=== PATIENT | male | born 1955 | race Caucasian/White ===

== ENCOUNTER → 2016-05-01 | Outpatient (REF) | payer OTHER ==
[~2016-05-01] MED LIST: /AUGM875TA; /DILT60TAB PO; /MOXI40TA; /MOXI40TA PO; /PANT40TA PO; /WARF5TA; /WARF5TA PO; ACET50TAOT PO; ACET65TA; ALBU0.084 IN; ALBU17IN INH; ALBU83IN INH; ASMANEX INHALER; ATEN100T PO; ATEN25TA; CEPH500T; CETI5CHW; COLC0.6T34 PO; COMBVENT; COUM10TA; COUM1TAB17 PO; COUM7.5T PO; DILT120T PO; DUONSOL; ENAL10TA2; ENAL20TA; ENAL20TA PO; FLON0.05; FORADIL; FORMETEROL; FURO1TAB15 PO; FURO40TA2 PO; GLUC1000; GLUCTAB PO; LASI40TA; LASI40TA PO; MAGN400T5 PO; MAGO400T PO; METF1000 PO; METF500T4; MUCI600T34 PO; MUCOMYST; MULTTAB4 PO; OXYC15TA76 PO; OXYGEN; PRAV10TA PO; PRAV40TA2 PO; PRED10TA2; PRED10TA2 PO; PROV90AE; SILV40CR TOP; SILVADENE CREAM; SITA50TAB PO; SYMB80AE; SYMB80AE IN; TENO100T; THIA100T; VITA100037 PO; VITA100072 PO; ZITH500T
== END ==
LOC: M LAB REF 09:17
PROVIDERS: ATTEND Nurse Practitioner Adult Health
DX: Z51.81 Encounter for therapeutic drug level monitoring (principal); Z79.01 Long term (current) use of anticoagulants

== ENCOUNTER → 2016-05-16 | Outpatient (REF) | payer OTHER | LOC: M LAB REF 16:37 | PROVIDERS: ATTEND Internal Medicine Medical Oncology | DX: C25.9 Malignant neoplasm of pancreas, unspecified (principal) ==

== ENCOUNTER 2016-06-24 17:39 | Inpatient (IN) | payer OTHER ==
[~2016-06-24] VITALS: Ht 188 cm; Wt 109.9 kg
[2016-06-24] MEDS ORDERED: IPRATROPIUM 0.5MG/ALBUTEROL 2.5MG INH SOL UD 3ML (DUONEB)(J7620) As Ordered ONE (18:03)
[2016-06-24 18:15] LABS: BASO % 0.6 % (0.0-1.0); EOS # 0.1 K/mm3 (0.0-0.50); EOS % 2.1 % (0.0-3.0); LARGE UNSTAINED CELL # 0.3 K/mm3 (0.0-0.4); LARGE UNSTAINED CELL % 5.8 % (0.0-4.0); LYMPH % 20.2 % (24.0-44.0); MEAN CORPUSCULAR HEMOGLOBIN 27.3 pg (27.0-33.0); MEAN CORPUSCULAR HGB CONC 31.3 g/dl (32.0-36.5); MEAN CORPUSCULAR VOLUME 87.3 fl (80.0-96.0); MONO # 0.6 K/mm3 (0.0-0.8); MONO % 11.3 % (0.0-5.0); NEUTROPHILS % 60.1 % (36.0-66.0); PLATELET COUNT, AUTOMATED 354 k/mm3 (150-450); RED CELL DISTRIBUTION WIDTH 17.7 % (11.5-14.5); WHITE BLOOD COUNT 4.9 K/mm3 (4.0-10.0)
[2016-06-24 18:31] LABS: ANION GAP 9 MEQ/L (8-16); BLOOD UREA NITROGEN 6 MG/DL (7-18); CARBON DIOXIDE LEVEL 34 MEQ/L (21-32); CHLORIDE LEVEL 94 MEQ/L (98-107); CREATININE FOR GFR 0.72 MG/DL (0.70-1.30); GLOMERULAR FILTRATION RATE > 60.0 (>49); GLUCOSE, FASTING 123 MG/DL (80-110); INR 2.26; POTASSIUM SERUM 3.4 MEQ/L (3.5-5.1); SODIUM LEVEL 137 MEQ/L (136-145)
--- NOTE | 2016-06-24 18:54 | REP ---
Clinical: Shortness of breath. Technique: PA and lateral. Comparison: 02/16/2016. Findings: Right-sided opacity in the right lower lobe appears slightly more dense than prior examination. Bilateral pleuroparenchymal changes (right greater than left) primarily involving the bilateral lung bases and inferior pleural surfaces appears similar to prior examination. Cardiac silhouette is stable. [id number] with tip in the SVC again noted. No pneumothorax. Skeletal structures grossly intact. Impression: 1. Right lower lobe opacity appears slightly more pronounced and dense than prior examination and may reflect increasing process. 2. Bilateral pleuroparenchymal changes are similar to prior examination. Signed by Eduardo Mariano MD 06/24/2016 06:45 P
[2016-06-24] MEDS ORDERED: LORazepam 2 MG/ML VIAL (J2060) As Ordered ONE (19:39)
[2016-06-24] MEDS ORDERED: LEVALBUTEROL 1.25 MG/0.5 ML CONCENTRATE NEB As Ordered ONE (19:52)
[2016-06-24] MEDS: IPRATROPIUM 0.02% SOLN 0.5MG/2.5 ML NEB NEB SCH (20:00)
[2016-06-24] MEDS ORDERED: POTASSIUM CHLORIDE 10 MEQ SR TABLET PO ONE (20:00)
[2016-06-24] MEDS ORDERED: LEVALBUTEROL 1.25 MG/0.5 ML CONCENTRATE NEB NEB PRN (20:00)
[2016-06-24] MEDS: LEVALBUTEROL 1.25 MG/0.5 ML CONCENTRATE NEB NEB SCH (20:00)
[2016-06-24] MEDS ORDERED: PRAV20TA2 PO (20:31)
[2016-06-24] MEDS ORDERED: VITMTA PO (20:33)
[2016-06-24] MEDS ORDERED: SYMB16INH INH (20:33)
[2016-06-24] MEDS ORDERED: VITA100066 PO (20:33)
[2016-06-24] MEDS ORDERED: VITA10002 PO (20:33)
[2016-06-24] MEDS ORDERED: SPIR1CAP INH (20:33)
[2016-06-24] MEDS ORDERED: IPRASOL4 INH (20:33)
[2016-06-24] MEDS ORDERED: COUM7.5T PO (20:34)
[2016-06-24] MEDS ORDERED: COUM1TAB17 PO (20:34)
[2016-06-24] MEDS ORDERED: ADVAIR DISKUS 500/50 INH PWD INH SCH (21:00)
[2016-06-24] MEDS ORDERED: ISOVUE-370 76% 100ML VIAL (Q9967) As Ordered ONE (21:11)
[2016-06-24] MEDS ORDERED: GLUCOSE 4 GM CHEW TABLET PO PRN (21:15)
[2016-06-24] MEDS ORDERED: DEXTROSE 50% 50 ML SYRINGE IV PRN (21:15)
[2016-06-24] MEDS ORDERED: GLUCAGON FOR INJ 1 MG VIAL (J1610) SC PRN (21:15)
--- NOTE | 2016-06-24 21:40 | REPUSA ---
CT angiogram of the chest Clinical statement: Chest pain and shortness of breath. Technique: Multiple axial CT images were obtained from the thoracic inlet through the upper abdomen a fter a bolus administration of nonionic intravenous contrast. Coronal and sagittal reconstructions we re also obtained. Comparison: 11/11/2015. Findings: The pulmonary arteries are well-opacified with contrast, with no intraluminal filling defec ts to suggest embolism. The thoracic aorta is unremarkable. Thyroid gland is within normal limits. Th ere is no thoracic lymphadenopathy. There are small bilateral pleural effusions. There is patchy infi ltrates throughout the right lower lung. Small areas of infiltrate are seen in the left lower lobe. S evere emphysematous changes are seen in the right lower lobe, with mild emphysematous changes seen th roughout the remainder of the lungs. Limited imaging of the upper abdomen is unremarkable. There are two ill-defined low attenuation lesions in the posterior right lobe of the liver, the largest measuri ng 2.6 x 2.2 cm. There are no suspicious osseous lesions. Impression: 1. No evidence of pulmonary embolism. 2. Small bilateral pleural effusions with lower lobe infiltrates, greater on the right than the left. These have increased in severity since the prior study. 3. Scattered emphysematous changes, most severe in the right lower lobe. 4. Ill-defined low attenuation lesions in the posterior right lobe of the liver. If there is further clinical concern, ultrasound could be performed.
[2016-06-24] MEDS ORDERED: SODIUM CHLORIDE NASAL 0.65% SPRAY BTL (OCEAN) PRN (22:00)
--- NOTE | 2016-06-24 22:13 | HPE ---
DATE OF ADMISSION: 06/24/2016 PRIMARY CARE PROVIDER: Dr. Ross Galvez INPATIENT HOSPITALIST ATTENDING: Dr. Chandu Posada MEDICAL ONCOLOGIST: Dr. Carmen Jimenez CHIEF COMPLAINT: Shortness of breath. HISTORY OF PRESENT ILLNESS: 60-year-old male with a history of adenocarcinoma of the pancreatic head, status post Whipple procedure 12/12 and six cycles of chemotherapy, follows with Dr. Carmen Jimenez with recent PET scan showing hypermetabolic in the posterolateral inferior sulcus of the left lung on previous PET scan on 11/29/2015, atrial fibrillation on chronic coumadin, chronic obstructive pulmonary disease (COPD), hypertension, ETOH liver cirrhosis, dyslipidemia, obstructive sleep apnea on continuous positive airway pressure (CPAP) at night, presents to the emergency room with a 3-day history of worsening shortness of breath. He complains of a chest cold, sinus congestion with headache, for which he had taken some Aleve, one day of fever, which was subjective and not documented with worsening shortness of breath and wheezing at home despite nebulizer treatments. He was seen at the [facility] for routine followup and review of his blood work. At that time, his primary care provider prescribed Levaquin 750 mg daily, currently had taken 4 days for a 5 day course. Despite antibiotic treatment, no steroids were given and the patient presents to the emergency room today with difficulty ambulating due to severe shortness of breath and persistent wheezing. He otherwise denies any repeat episodes of subjective fevers or chills. His cough is dry and nonproductive, unchanged from prior. He denies any nausea, vomiting, diarrhea, abdominal pain. He has a chronic umbilical hernia, which is reducible. Denies any hematemesis, bright red blood per rectum, generalized weakness, decrease in appetite, weight gain, or weight loss. Denies any chest pain, pressure or tightness. Hospitalist service was called for admission for COPD exacerbation with repeat chest x-ray showing persistent right lower lobe opacity, more pronounced and dense than prior examination, which may reflect increasing process. PAST MEDICAL HISTORY: 1. Atrial fibrillation on chronic Coumadin. 2. COPD. 3. Diabetes on chronic metformin. 4. Hypercholesterolemia. 5. Hypertension. 6. Adenocarcinoma of the head of the pancreas, status post Whipple procedure. 7. Alcoholic liver cirrhosis. 8. Obstructive sleep apnea on CPAP at night. 9. Dyslipidemia. PAST SURGICAL HISTORY: 1. Whipple procedure. 2. Tonsillectomy. ALLERGIES: No known drug allergies. HOME MEDICATIONS: He is currently on the 4th day of Levaquin 750 mg daily for a 5-day course given by the [facility]. - albuterol sulfate two puffs as needed - Cardizem 120 mg twice a day - Coumadin 7.5 mg daily - Enalapril 20 mg daily - Lasix 80 mg daily - mag oxide 400 mg twice a day - metformin 1 gram twice a day - pravastatin 20 mg daily SOCIAL HISTORY: The patient quit smoking 10 years ago. Previously smoked three packs a day for over 20 years. Usually drinks six cans of beer on a daily basis , currently about two beers per week. No history of delirium tremens or withdrawal. FAMILY HISTORY: Father with jaw cancer. REVIEW OF SYSTEMS: 12-point system obtained, all of which are negative except for those mentioned in history of present illness. PHYSICAL EXAMINATION: VITAL SIGNS: Blood pressure 157/74, pulse 102 and irregular, respiratory rate 28, temperature 98.7, 94% on 2 liters nasal cannula. Weighs 113.4 and 6 feet 2 inches tall. GENERAL: The patient is awake, alert, oriented times three. Answering questions appropriately. He has multiple missing teeth in the upper and lower jaw. He has no respiratory distress. No use of respiratory accessory muscles. Able to speak in full sentences. No cyanosis, icterus or jaundice. No jugular venous distention (JVD). LUNGS: Diminished with prolonged expiration, bilateral expiratory wheezing. HEART: S1, S2. Irregularly irregular. ABDOMEN: Soft, nontender, nondistended. The patient had previous surgical scars from prior Whipple procedure and has a reducible umbilical hernia. No rebound or guarding. No hepatosplenomegaly. EXTREMITIES: No cyanosis, clubbing or pitting edema. EKG showed atrial fibrillation with ventricular rate of 99, low QRS in extremity leads. LABORATORY DATA: White count 4.9, hemoglobin 11, hematocrit 37, platelet count of 354, MCV 87, MCH 27. Sodium 137, potassium 3.4, chloride 94, bicarbonate 34, BUN 6, creatinine 0.72, glucose of 123, BNP 40.7, CA 19-9 of 132.7 from peak of 2052 in November 2015. IMAGING STUDIES: Repeat chest x-ray on 06/24/2016 shows right lower lobe opacity, more pronounced and dense than on prior examination, may reflect an increasing process. Bilateral pleural parenchymal changes are similar to prior examination. ASSESSMENT AND PLAN: This is a 60-year-old male with recent diagnosis in November 2015 of adenocarcinoma of the head of the pancreas, status post Whipple procedure, had six cycles of chemotherapy, per the patient, followed by Dr. Carmen Jimenez as an outpatient, alcoholic liver cirrhosis, atrial fibrillation on chronic Coumadin, hypertension, hyperlipidemia, type 2 diabetes, chronic obstructive pulmonary disease (COPD), obstructive sleep apnea on home CPAP at night, presents to the emergency room with 3-day history of worsening shortness of breath and wheezing, seen by primary care physician and was given Levaquin without steroids. Now presents with worsening dyspnea on exertion with significant wheezing. The patient will be admitted as an inpatient for two midnights for COPD exacerbation and further evaluation of increasing right lower lobe opacity in light of prior history of adenocarcinoma of the head of the pancreas. He will be assigned to Dr. Chandu Posada at 7:00 a.m., hospitalist service, on 06/25/2016 for the following issues: 1. Acute COPD exacerbation. The patient has a known history of smoking and diagnosed COPD. He will be given supplemental oxygen to keep saturations 88 to 92%. COPD diet. IV Solu-Medrol every 8 hours. Nebulizer treatments every 4 hours and every 1 hour with Xopenex, due to a history of atrial fibrillation, albuterol might cause increase in tachycardia. Antibiotics with ceftriaxone and azithromycin. Sputum culture if possible. The patient says that he has a dry cough. Check a respiratory panel. Early ambulation. Physical therapy (PT) evaluation and treatment. 2. Adenocarcinoma of the head of the pancreas, status post Whipple procedure with hypermetabolic uptake in the left lung on previous PET scan, currently with a right lower lobe opacity, which is increasing in size from prior examination. We will obtain a CT of the chest and discuss this case with Dr. Carmen Jimenez, the patient's medical oncologist. He has completed six cycles of chemotherapy, per the patient. The patient's CA 19-9 seems to have significantly improved from prior to his surgery. 3. Atrial fibrillation. The patient appears to be stable. He will be continued on his home dose of Cardizem 200 mg twice a day, as well as CVA prophylaxis with his home dose of Coumadin. Check INR daily. 4. Type 2 diabetes. In light of plans for CT of the chest with contrast, we will hold the patient's metformin. Consistent carbohydrate diet. Check A1/c. Check fingersticks before food and nightly with sliding scale coverage. May provide glipizide for now and monitor for renal failure in light of planned contrast study and continued use of Lasix and enalapril. 5. Hypertension, stable. Continue on enalapril and Lasix. Monitor for any signs of worsening. Strict input and output. 6. Hyperlipidemia. Continue pravastatin. Check fasting lipid profile. 7. History of alcoholic liver cirrhosis, stable. Avoid hepatotoxins and dose antibiotics and limit acetaminophen to less than 3 grams per day. 8. Obstructive sleep apnea. Continue home CPAP. MTDD
--- NOTE | 2016-06-24 22:14 | EDDOCDS ---
Physician Documentation [facility] Name: Nolberto Bergeron Age: 60 yrs Sex: Male : 1955 Arrival Date: 06/24/2016 Time: 17:39 Bed 6 Private MD: Disposition: 06/24/16 19:59 Hospitalization ordered by Lis Martinez for Inpatient Admission. Preliminary diagnosis is Chronic obstructive pulmonary disease with (acute) exacerbation. - Bed requested for 4 [place]. - Status is Inpatient Admission. cz - Condition is Stable. - Problem is an acute exacerbation. - Symptoms are unchanged. Historical: - Allergies: no known allergies; - Home Meds: 1. albuterol sulfate 90 mcg/actuation Inhl HFAA 2 puffs as needed 2. Cardizem 120 mg Oral tab 1 tab twice a day (Last dose: 06/24/2016 16:00) 3. Coumadin 7.5 mg Oral tab 1 tab once daily (Last dose: 06/24/2016 08:00) 4. enalapril maleate 20 mg Oral tab 1 tab once daily (Last dose: 06/24/2016 08:00) 5. Lasix 80 mg oral tab 1 tab once daily (Last dose: 06/24/2016 08:00) 6. magnesium oxide 400 mg Oral cap twice a day (Last dose: 06/24/2016 08:00) 7. metformin 1,000 mg Oral tab 1 tab 2 times per day (Last dose: 06/24/2016 08:00) 8. pravastatin 20 mg oral tab 1 tab once daily (Last dose: 06/24/2016 07:00) - PMHx: Atrial Fib; COPD; Diabetes - NIDDM: controlled; Hypercholesterolemia; Hypertension; Cancer, Pancreas; - PSHx: Tonsillectomy; whipple procedure; - Social history: Smoking status: Patient states former smoker of tobacco. No barriers to communication noted, The patient speaks fluent Tajik. - : The pt / caregiver states he / she is on anticoagulants: coumadin. Home medication list is obtained from [employer] import data. - Exposure Risk Screening:: None identified. - Family history: Not pertinent. Vital Signs: 06/24 17:48 BP 157 / 74 (auto/); kmg1 17:48 Pulse 106 MON; Pulse Ox 93% ; kmg1 17:52 BP 157 / 74; Pulse 102; Resp 28; Temp 98.7; Pulse Ox 94% 2 lpm ; Weight 113.4 kg / 250 rn1 lbs (R); Height 6 ft. 2 in. (187.96 cm) (R); Pain 0/10; 18:01 BP 152 / 83 (auto/); kmg1 18:01 Pulse 94 MON; Pulse Ox 95% ; kmg1 18:16 BP 170 / 81 (auto/); kmg1 18:16 Pulse 84 MON; Pulse Ox 95% ; kmg1 18:31 BP 162 / 76 (auto/); kmg1 18:31 Pulse 102 MON; Pulse Ox 97% ; kmg1 18:46 BP 155 / 77 (auto/); kmg1 18:46 Pulse 94 MON; Pulse Ox 100% ; kmg1 19:01 BP 162 / 74 (auto/); kmg1 19:01 Pulse 88 MON; Pulse Ox 96% ; kmg1 19:16 BP 161 / 75 (auto/); kmg1 19:16 Pulse 86 MON; Pulse Ox 95% ; kmg1 19:31 BP 153 / 72 (auto/); kmg1 19:31 Pulse 90 MON; Pulse Ox 97% ; kmg1 19:46 BP 155 / 75 (auto/); kmg1 19:46 Pulse 92 MON; Pulse Ox 97% ; kmg1 19:56 BP 127 / 73 (auto/); kmg1 19:56 Pulse 58 MON; Pulse Ox 95% ; kmg1 20:11 BP 120 / 74 (auto/); kmg1 20:11 Pulse 56 MON; Pulse Ox 97% ; kmg1 20:16 BP 131 / 75 (auto/); kmg1 20:16 Pulse 86 MON; Pulse Ox 95% ; kmg1 20:26 BP 124 / 69 (auto/); kmg1 20:26 Pulse 58 MON; Pulse Ox 96% ; kmg1 20:31 BP 136 / 68 (auto/); kmg1 20:31 Pulse 86 MON; Pulse Ox 98% ; kmg1 20:41 BP 125 / 70; Pulse 50 MON; Resp 22; Pulse Ox 96% ; kmg1 20:46 BP 141 / 67 (auto/); kmg1 20:46 Pulse 76 MON; Pulse Ox 96% ; kmg1 21:01 BP 125 / 66 (auto/); kmg1 21:01 Pulse 60 MON; Pulse Ox 95% ; kmg1 21:16 BP 157 / 72 (auto/); kmg1 21:16 Pulse 96 MON; Resp 20 S; Pulse Ox 96% ; kmg1 17:52 Body Mass Index 32.10 (113.40 kg, 187.96 cm) rn1 MDM: 17:58 -Blood Culture (Adults Only), peripheral from different site, or from device/port/PICC ke etc. if present ordered. 17:58 Corn Press Operator/Pulse Ox/q 15 min VS ordered. ke 17:58 IV Saline Lock ordered. ke 17:58 Oxygen at 4L/Min NC or Home dosage ordered. ke 17:58 Rhythm Strip to chart ordered. ke 17:58 Albuterol-Ipratropium 1 neb Nebulizer every 20 minutes x3 ordered. ke 17:58 Call Respiratory ordered. ke 17:59 B-Type Natiuretic Peptide Ordered. EDMS 17:59 Basic Metabolic Profile Ordered. EDMS 17:59 CBC with Diff Ordered. EDMS 17:59 -Blood Culture Ordered. EDMS 17:59 Chest, 2 View (pa\E\lat) Ordered. EDMS 18:00 ECG WITH READING ER PHYS+CARDIAG ordered. EDMS 18:02 Call Respiratory complete. aa3 18:05 PT/INR Ordered. EDMS 18:07 -Blood Culture (Adults Only), peripheral from different site, or from device/port/PICC deg etc. if present complete. 18:08 BLOOD CULTURES Ordered. EDMS 18:10 [facility] Payment Agreement was scanned into [email or web address] and attached to record. jp5 18:10 Financial registration complete. jp5 18:24 ECG WITH READING ER PHYS+CARDIAG ordered. EDMS 19:30 Basic Metabolic Profile Reviewed. ke 19:30 CBC with Diff Reviewed. ke 19:30 PT/INR Reviewed. ke 19:30 B-Type Natiuretic Peptide Reviewed. ke 19:30 Chest, 2 View (pa\E\lat) Reviewed. ke 19:31 LORazepam 0.5 mg IVP once ordered. ke 19:31 Levalbuterol 1.25 mg Nebulizer once ordered. ke 20:15 PHYSICAL THERAPY EVAL & TREAT ordered. EDMS 20:15 Admission / Observation Status ordered. EDMS 20:15 COPD DIET ordered. EDMS 20:16 CBC WITH DIFFERENTIAL Ordered. EDMS 20:16 BASIC METABOLIC PROFILE Ordered. EDMS 20:16 INFLUENZA A&B RAPID ANTIGEN Ordered. EDMS 20:58 CT ANGIO CHEST Ordered. EDMS 21:14 HEMOGLOBIN A1C Ordered. EDMS 21:14 CARDIAC RISK PROFILE Ordered. EDMS 21:14 PROTHROMBIN TIME PROFILE\E\INR Ordered. EDMS 21:49 LEGIONELLA ANTIGEN URINE Ordered. EDMS 21:49 URINE STREP PNEUMONIAE ANTIGEN Ordered. EDMS 21:49 MRSA SCREEN Ordered. EDMS 21:49 RESPIRATORY PANEL Ordered. EDMS 21:49 SPUTUM CULTURE AND GRAM STAIN Ordered. EDMS Point of Care Testin:46 per EMS aa3 17:46 per EMS aa3 17:46 per EMS aa3 17:46 per EMS aa3 Ranges: Administered Medications: 18:05 Drug: Albuterol-Ipratropium 1 neb [ipratropium-albuterol 0.5 mg-3 mg(2.5 mg base)/3 mL lb nebulization soln (1 neb)] Route: Nebulizer; 18:13 Drug: Albuterol-Ipratropium 1 neb [ipratropium-albuterol 0.5 mg-3 mg(2.5 mg base)/3 mL lb nebulization soln (1 neb)] Route: Nebulizer; 18:21 Drug: Albuterol-Ipratropium 1 neb [ipratropium-albuterol 0.5 mg-3 mg(2.5 mg base)/3 mL lb nebulization soln (1 neb)] Route: Nebulizer; 19:48 Drug: LORazepam 0.5 mg [lorazepam 2 mg/mL injection solution (0.25 mL)] Route: IVP; [facility] [place] Site: left antecubital; 20:31 Follow up: Response: Anxiety is improved [facility] [place] 19:56 Drug: Levalbuterol 1.25 mg [levalbuterol 1.25 mg/0.5 mL solution for nebulization (0.5 jc3 mL)] Route: Nebulizer; Signatures: Dispatcher [employer] EDMS Aide Bravo, Upsetter Setter Up Unit deg Kemar Lozano RN RN Efrain Cardoso, DENTAL HYGIENE TEACHER DENTAL HYGIENE TEACHER ke Larissa Dominguez, BOOKKEEPERS SUPERVISOR BOOKKEEPERS SUPERVISOR [id number] Diana Woods RN RN aa3 Samuel Hearn Kelly RN [facility] [place] Myrna Abdi Joseph 3 The chart was reviewed and I authenticate all verbal orders and agree with the evaluation and treatment provided.Corrections: (The following items were deleted from the chart) 21:03 20:54 CT ANGIO CHEST ordered. EDMS EDMS Attachments: 18:10 [facility] Payment Agreement [email or web address] MTDD
--- NOTE | 2016-06-24 22:14 | EDDOCDS ---
Nurse's Notes [facility] Name: Nolberto Bergeron Age: 60 yrs Sex: Male : 1955 Arrival Date: 06/24/2016 Time: 17:39 Bed 6 Private MD: Diagnosis: Chronic obstructive pulmonary disease with (acute) exacerbation Presentation: 06/24 17:42 Presenting complaint: EMS states: Patient has been feeling unwell for 3 days. aa3 Progressive shortness of breath, took two breathing treatments prior to calling EMS. Seen at OR . Adult Sepsis Screening: The patient does not have new or worsening altered mentation. Patient has a respiratory rate of greater than or equal to 22 (1 point). Systolic blood pressure is greater than 100. Patient has a qSOFA score of 1- Negative Sepsis Screen. Suicide/Homicide risk assessment- the patient denies having any suicidal and/or homicidal ideations and does not present with any other emotional, behavioral or mental health complaints. Status: Patient is not a medical services manager or dependent. Transition of care: patient was not received from another setting of care. 17:42 Acuity: EVELYN Level 2 aa3 17:42 Method Of Arrival: Ambulance aa3 Triage Assessment: 17:53 General: Appears uncomfortable, Behavior is appropriate for age, cooperative. Pain: aa3 Denies pain. Pt Declines HIV testing. Neurological: Level of Consciousness is awake, alert, Oriented to person, place, time. Cardiovascular: Capillary refill < 3 seconds Rhythm is atrial fibrillation. Respiratory: Onset: The symptoms/episode began/occurred gradually, Airway is patent Respiratory effort is even, labored, using tripod position, Respiratory pattern is tachypnea Breath sounds are diminished in right posterior upper lobe, left posterior lower lobe, right posterior middle lobe and right posterior lower lobe. GI: Abdomen is non- distended. : Urine is clear. Derm: Skin is intact, is healthy with good turgor, Skin is dry. Musculoskeletal: No deficits noted. Historical: - Allergies: no known allergies; - Home Meds: 1. albuterol sulfate 90 mcg/actuation Inhl HFAA 2 puffs as needed 2. Cardizem 120 mg Oral tab 1 tab twice a day (Last dose: 06/24/2016 16:00) 3. Coumadin 7.5 mg Oral tab 1 tab once daily (Last dose: 06/24/2016 08:00) 4. enalapril maleate 20 mg Oral tab 1 tab once daily (Last dose: 06/24/2016 08:00) 5. Lasix 80 mg oral tab 1 tab once daily (Last dose: 06/24/2016 08:00) 6. magnesium oxide 400 mg Oral cap twice a day (Last dose: 06/24/2016 08:00) 7. metformin 1,000 mg Oral tab 1 tab 2 times per day (Last dose: 06/24/2016 08:00) 8. pravastatin 20 mg oral tab 1 tab once daily (Last dose: 06/24/2016 07:00) - PMHx: Atrial Fib; COPD; Diabetes - NIDDM: controlled; Hypercholesterolemia; Hypertension; Cancer, Pancreas; - PSHx: Tonsillectomy; whipple procedure; - Social history: Smoking status: Patient states former smoker of tobacco. No barriers to communication noted, The patient speaks fluent Welsh. - : The pt / caregiver states he / she is on anticoagulants: coumadin. Home medication list is obtained from [employer] data. - Exposure Risk Screening:: None identified. - Family history: Not pertinent. Screenin:57 Screening information is obtained from the patient. Fall risk: No risks identified. aa3 Assistance ADL's: requires no assistance with activities of daily living. Abuse/DV Screen: The patient / caregiver reports he/she is: not in a situation that causes fear, pain or injury. Nutritional screening: No deficits noted. Advance Directives: Currently, there is no health care proxy. There is no active DNR order. There is no living will. home support is adequate. Assessment: 19:05 General: Appears ill, Behavior is appropriate for age, cooperative, pleasant. Pain: kmg1 Denies pain. Neurological: Level of Consciousness is awake, alert. EENT: No deficits noted. Cardiovascular: Rhythm is sinus rhythm. Respiratory: Airway is patent Respiratory effort is labored, Respiratory pattern is regular, symmetrical, Breath sounds are diminished in left posterior upper lobe, right posterior upper lobe, left posterior lower lobe, right posterior middle lobe and right posterior lower lobe Reports shortness of breath at rest on exertion. 19:50 General: Patient feeling anxious and SOB. Medicated per order. Provider aware. kmg1 20:50 General: Appears in no apparent distress, comfortable, Behavior is appropriate for age. kmg1 Respiratory: Airway is patent Respiratory effort is even, labored, Respiratory pattern is regular, symmetrical, Breath sounds are diminished bilaterally. 21:57 General: Appears in no apparent distress, comfortable, Behavior is appropriate for age, kmg1 cooperative, pleasant. Respiratory: Airway is patent Respiratory effort is even, labored, Respiratory pattern is regular, symmetrical, Breath sounds are diminished bilaterally. Vital Signs: 17:48 BP 157 / 74 (auto/); kmg1 17:48 Pulse 106 MON; Pulse Ox 93% ; kmg1 17:52 BP 157 / 74; Pulse 102; Resp 28; Temp 98.7; Pulse Ox 94% 2 lpm ; Weight 113.4 kg (R); rn1 Height 6 ft. 2 in. (187.96 cm) (R); Pain 0/10; 18:01 BP 152 / 83 (auto/); kmg1 18:01 Pulse 94 MON; Pulse Ox 95% ; kmg1 18:16 BP 170 / 81 (auto/); kmg1 18:16 Pulse 84 MON; Pulse Ox 95% ; kmg1 18:31 BP 162 / 76 (auto/); kmg1 18:31 Pulse 102 MON; Pulse Ox 97% ; kmg1 18:46 BP 155 / 77 (auto/); kmg1 18:46 Pulse 94 MON; Pulse Ox 100% ; kmg1 19:01 BP 162 / 74 (auto/); kmg1 19:01 Pulse 88 MON; Pulse Ox 96% ; kmg1 19:16 BP 161 / 75 (auto/); kmg1 19:16 Pulse 86 MON; Pulse Ox 95% ; kmg1 19:31 BP 153 / 72 (auto/); kmg1 19:31 Pulse 90 MON; Pulse Ox 97% ; kmg1 19:46 BP 155 / 75 (auto/); kmg1 19:46 Pulse 92 MON; Pulse Ox 97% ; kmg1 19:56 BP 127 / 73 (auto/); kmg1 19:56 Pulse 58 MON; Pulse Ox 95% ; kmg1 20:11 BP 120 / 74 (auto/); kmg1 20:11 Pulse 56 MON; Pulse Ox 97% ; kmg1 20:16 BP 131 / 75 (auto/); kmg1 20:16 Pulse 86 MON; Pulse Ox 95% ; kmg1 20:26 BP 124 / 69 (auto/); kmg1 20:26 Pulse 58 MON; Pulse Ox 96% ; kmg1 20:31 BP 136 / 68 (auto/); kmg1 20:31 Pulse 86 MON; Pulse Ox 98% ; kmg1 20:41 BP 125 / 70; Pulse 50 MON; Resp 22; Pulse Ox 96% ; kmg1 20:46 BP 141 / 67 (auto/); kmg1 20:46 Pulse 76 MON; Pulse Ox 96% ; kmg1 21:01 BP 125 / 66 (auto/); kmg1 21:01 Pulse 60 MON; Pulse Ox 95% ; kmg1 21:16 BP 157 / 72 (auto/); kmg1 21:16 Pulse 96 MON; Resp 20 S; Pulse Ox 96% ; kmg1 17:52 Body Mass Index 32.10 (113.40 kg, 187.96 cm) rn1 Vitals: 17:46 Log In Time N/A - ambulance arrival. aa3 ED Course: 17:40 Patient visited by Aide Bravo, Power Screwdriver Operator. deg 17:40 Patient moved to Waiting deg 17:41 Patient moved to 6 deg 17:42 Diana Woods,RN is Primary Nurse. aa3 17:45 Triage Initiated aa3 17:48 Patient visited by Diana Woods,ARDEN. aa3 17:55 [facility]ved[facility] F[facility]. ke 17:55 Patient visited by Efrain Quevedo FNP. ke 17:57 Patient visited by Efrain Quevedo FNP. ke 17:57 The patient / caregiver is instructed regarding the plan of care and ED course. Cardiac aa3 monitor on. Pulse ox on. NIBP on. 17:57 Maintain field IV. Dressing intact. Good blood return noted. Site clean & dry. Gauge & aa3 site: 18 Left forearm. O2 via nasal cannula \T\ 4L/min. 17:59 Patient visited by Diana Woods RN. aa3 18:00 -Blood Culture Sent. kc3 18:00 B-Type Natiuretic Peptide Sent. kc3 18:00 Basic Metabolic Profile Sent. kc3 18:00 CBC with Diff Sent. kc3 18:10 [facility] Payment Agreement was scanned into [employer] and attached to record. jp5 18:16 Patient visited by Al Graham PCA. jmv 18:16 EKG done. (by ED staff). Reviewed by Efrain LITTLE. jm 18:29 BLOOD CULTURES Sent. aa3 18:33 Patient visited by Al Graham PCA. jmv 18:33 EKG done. (by ED staff). Reviewed by Efrain LITTLE. laineyv 19:03 Patient visited by Efrain Quevedo FNP. ke 19:21 Chest, 2 View (pa\E\lat) Returned. EDMS 19:40 Patient visited by Efrain Quevedo FNP. ke 19:59 Lis Martinez is Hospitalizing Provider. ke 20:18 Patient visited by Nancy Vyas, RN. km 20:31 Patient visited by Nancy Vyas, RN. [facility] No procedures done that require assistance. [facility] [place]:01 Patient visited by Nancy Vyas, [place]. [facility] [place]:07 [place] ANGIO CHEST Returned. EDMS Administered Medications: 18:05 Drug: Albuterol-Ipratropium 1 neb [ipratropium-albuterol 0.5 mg-3 mg(2.5 mg base)/3 mL lb nebulization soln (1 neb)] Route: Nebulizer; 18:13 Drug: Albuterol-Ipratropium 1 neb [ipratropium-albuterol 0.5 mg-3 mg(2.5 mg base)/3 mL lb nebulization soln (1 neb)] Route: Nebulizer; 18:21 Drug: Albuterol-Ipratropium 1 neb [ipratropium-albuterol 0.5 mg-3 mg(2.5 mg base)/3 mL lb nebulization soln (1 neb)] Route: Nebulizer; 19:48 Drug: LORazepam 0.5 mg [lorazepam 2 mg/mL injection solution (0.25 mL)] Route: IVP; [facility] [place]: left antecubital; 20:31 Follow up: Response: Anxiety is improved [facility] [place] 19:56 Drug: Levalbuterol 1.25 mg [levalbuterol 1.25 mg/0.5 mL solution for nebulization (0.5 jc3 mL)] Route: Nebulizer; Point of Care Testin:46 per EMS aa3 17:46 per EMS aa3 17:46 per EMS aa3 17:46 per EMS aa3 Ranges: RT: 18:05 Initial Med Neb Given as ordered Patient was instructed and evaluated on procedure lb Patient tolerated procedure well without adverse effect. Respiratory: Breath sounds are diminished bilaterally. 18:13 Subsequent Med Neb Given as ordered Patient tolerated procedure well without adverse lb effect. 18:21 Unable to give med neb MED WASTED. lb 19:56 Subsequent Med Neb Given as ordered. O2 via nasal cannula. Respiratory: Breath sounds jc3 are diminished bilaterally. Order Results: Lab Order: B-Type Natiuretic Peptide; SPEC'M 06/24/16 17:55 Test: BRAIN NATRIURETIC PEPTIDE; Value: 40.9; Range: <100; Units: PG/ML; Status: F Lab Order: Basic Metabolic Profile; SPEC'M 06/24/16 17:55 Test: GLUCOSE, FASTING; Value: 123; Range: 80-110; Abnormal: Above high normal; Units: MG/DL; Status: F Test: BLOOD UREA NITROGEN; Value: 6; Range: 7-18; Abnormal: Below low normal; Units: MG/DL; Status: F Test: CREATININE FOR GFR; Value: 0.72; Range: 0.70-1.30; Units: MG/DL; Status: F Test: GLOMERULAR FILTRATION RATE; Value: > 60.0; Range: >49; Status: F Test: SODIUM LEVEL; Value: 137; Range: 136-145; Units: MEQ/L; Status: F Test: POTASSIUM SERUM; Value: 3.4; Range: 3.5-5.1; Abnormal: Below low normal; Units: MEQ/L; Status: F Test: CHLORIDE LEVEL; Value: 94; Range: 98-107; Abnormal: Below low normal; Units: MEQ/L; Status: F Test: CARBON DIOXIDE LEVEL; Value: 34; Range: 21-32; Abnormal: Above high normal; Units: MEQ/L; Status: F Test: ANION GAP; Value: 9; Range: 8-16; Units: MEQ/L; Status: F Test: CALCIUM LEVEL; Value: 8.0; Range: 8.8-10.2; Abnormal: Below low normal; Units: MG/DL; Status: F Test Note: ; Units are mL/min/1.73 m2 Chronic Kidney Disease Staging per NKF: Stage I & II GFR >=60 Normal to Mildly Decreased Stage III GFR 30-59 Moderately Decreased Stage IV GFR 15-29 Severely Decreased Stage V GFR <15 Very Little GFR Left ESRD GFR <15 on WRIST LINER Lab Order: CBC with Diff; SPEC'M 06/24/16 17:55 Test: WHITE BLOOD COUNT; Value: 4.9; Range: 4.0-10.0; Units: K/mm3; Status: F Test: RED BLOOD COUNT; Value: 4.24; Range: 4.30-6.10; Abnormal: Below low normal; Units: M/mm3; Status: F Test: HEMOGLOBIN; Value: 11.6; Range: 14.0-18.0; Abnormal: Below low normal; Units: g/dl; Status: F Test: HEMATOCRIT; Value: 37.0; Range: 42.0-52.0; Abnormal: Below low normal; Units: %; Status: F Test: MEAN CORPUSCULAR VOLUME; Value: 87.3; Range: 80.0-96.0; Units: fl; Status: F Test: MEAN CORPUSCULAR HEMOGLOBIN; Value: 27.3; Range: 27.0-33.0; Units: pg; Status: F Test: MEAN CORPUSCULAR HGB CONC; Value: 31.3; Range: 32.0-36.5; Abnormal: Below low normal; Units: g/dl; Status: F Test: RED CELL DISTRIBUTION WIDTH; Value: 17.7; Range: 11.5-14.5; Abnormal: Above high normal; Units: %; Status: F Test: PLATELET COUNT, AUTOMATED; Value: 354; Range: 150-450; Units: k/mm3; Status: F Test: NEUTROPHILS %; Value: 60.1; Range: 36.0-66.0; Units: %; Status: F Test: LYMPH %; Value: 20.2; Range: 24.0-44.0; Abnormal: Below low normal; Units: %; Status: F Test: MONO %; Value: 11.3; Range: 0.0-5.0; Abnormal: Above high normal; Units: %; Status: F Test: EOS %; Value: 2.1; Range: 0.0-3.0; Units: %; Status: F Test: BASO %; Value: 0.6; Range: 0.0-1.0; Units: %; Status: F Test: LARGE UNSTAINED CELL %; Value: 5.8; Range: 0.0-4.0; Abnormal: Above high normal; Units: %; Status: F Test: NEUTROPHILS #; Value: 3.0; Range: 1.8-7.7; Units: K/mm3; Status: F Test: LYMPH #; Value: 1.0; Range: 1.5-4.5; Abnormal: Below low normal; Units: K/mm3; Status: F Test: MONO #; Value: 0.6; Range: 0.0-0.8; Units: K/mm3; Status: F Test: EOS #; Value: 0.1; Range: 0.0-0.50; Units: K/mm3; Status: F Test: BASO #; Value: 0.0; Range: 0.0-0.2; Units: K/mm3; Status: F Test: LARGE UNSTAINED CELL #; Value: 0.3; Range: 0.0-0.4; Units: K/mm3; Status: F Lab Order: PT/INR; SPEC'M 06/24/16 17:55 Test: PROTHROMBIN TIME; Value: 25.0; Range: 12.3-14.5; Abnormal: Above high normal; Units: SECONDS; Status: F Test: INR; Value: 2.26; Status: F Test Note: ; THERAPUTIC HUMAN INR VALUES INDICATIONS NORMAL RANGES PROPHYLAXIS/TREATMENT OF: VENOUS THROMBOSIS 2.0-3.0 PULMONARY EMBOLISM 2.0-3.0 PREVENTION OF SYSTEMIC EMBOLISM FROM: TISSUE HEART VALVES 2.0-3.0 ACUTE MYOCARDIAL INFARCTION 2.0-3.0 VALVULAR HEART DISEASE 2.0-3.0 ATRIAL FIBRILLATION 2.0-3.0 MECHANICAL VALVES(HIGH RISK) 2.5-3.5 RECURRENT MYOCARDIAL INFARCTION 2.5-3.5 Radiology Order: Chest, 2 View (pa\E\lat) Test: Chest, 2 View (pa\E\lat) REASON FOR EXAMINATION: Shortness of Breath; Clinical: Shortness of breath.; ; Technique: PA and lateral.; ; Comparison: 02/16/2016.; ; Findings:; Right-sided opacity in the right lower lobe appears slightly more dense than; prior examination. Bilateral pleuroparenchymal changes (right greater than left); primarily involving the bilateral lung bases and inferior pleural surfaces; appears similar to prior examination. Cardiac silhouette is stable.; [id number] with tip in the SVC again noted. No pneumothorax. Skeletal; structures grossly intact.; ; Impression:; 1. Right lower lobe opacity appears slightly more pronounced and dense than; prior examination and may reflect increasing process.; 2. Bilateral pleuroparenchymal changes are similar to prior examination.; ; ; Signed by; Eduardo Mariano MD 06/24/2016 06:45 P; Radiology Order: CT ANGIO CHEST Test: CT ANGIO CHEST REASON FOR EXAMINATION: sob r/o pe history of pancreatic ca.; ; CT angiogram of the chest; Clinical statement: Chest pain and shortness of breath.; Technique: Multiple axial CT images were obtained from the thoracic inlet through the upper abdomen a; fter a bolus administration of nonionic intravenous contrast. Coronal and sagittal reconstructions we; re also obtained.; Comparison: 11/11/2015.; Findings: The pulmonary arteries are well-opacified with contrast, with no intraluminal filling defec; ts to suggest embolism. The thoracic aorta is unremarkable. Thyroid gland is within normal limits. Th; ere is no thoracic lymphadenopathy. There are small bilateral pleural effusions. There is patchy infi; ltrates throughout the right lower lung. Small areas of infiltrate are seen in the left lower lobe. S; evere emphysematous changes are seen in the right lower lobe, with mild emphysematous changes seen th; roughout the remainder of the lungs. Limited imaging of the upper abdomen is unremarkable. There are; two ill-defined low attenuation lesions in the posterior right lobe of the liver, the largest measuri; ng 2.6 x 2.2 cm. There are no suspicious osseous lesions.; Impression:; 1. No evidence of pulmonary embolism.; 2. Small bilateral pleural effusions with lower lobe infiltrates, greater on the right than the left.; These have increased in severity since the prior study.; 3. Scattered emphysematous changes, most severe in the right lower lobe.; 4. Ill-defined low attenuation lesions in the posterior right lobe of the liver. If there is further; clinical concern, ultrasound could be performed.; ; Outcome: 19:59 Decision to Hospitalize by Provider. ke 21:58 Discharge Assessment: Patient awake, alert and oriented x 3. No cognitive and/or kmg1 functional deficits noted. Patient verbalized understanding of disposition instructions. Patient awake and alert. patient administered narcotics - no. The following High Risk Discharge criteria are identified: None. Admitted to Med/Surg accompanied by tech, via stretcher, with oxygen. Condition: stable. CT Study completed. Property :Personal belongings accompany Pt. 22:13 Patient left the ED. cz Signatures: Dispatcher [employer] EDMS Aide Bravo, Power Screwdriver Operator Unit deg Nancy Vyas, RN RN kmg1 Kemar Lozano, RN RN cz Myrna Abdi Karl, CHOKER HOOKER CHOKER HOOKER Hemanth Jmienez jc3 Diana Woods,RN RN aa3 Oumar Alvarez rn1 Samuel Hearn jp5 Odette Alarcon,RN RN kc3 Al Graham, JHON DIESEL ENGINE MECHANIC jmv MTDMohini
[2016-06-24 22:15] VITALS: BP 126/78
[2016-06-24] MEDS: methylPREDNISolone INJ 125 MG/2 ML VIAL (J2930) IV SCH (23:16)
[2016-06-24] MEDS: HumaLOG INSULIN (NovoLOG) PER UNIT SC SCH (23:17)
[2016-06-24] MEDS: AZITHROMYCIN INJ 500 MG, VIAL MATE ADAPTER 1 EACH in D5W 250 ML IV SCH (23:18)
[2016-06-25] MEDS: cefTRIAXone SOD 1 GM in D5W MINI-BAG PLUS 50 ML IV SCH ×2 (00:57→21:59)
[2016-06-25] MEDS: IPRATROPIUM 0.02% SOLN 0.5MG/2.5 ML NEB NEB SCH ×4 (01:15→20:00)
[2016-06-25] MEDS: LEVALBUTEROL 1.25 MG/0.5 ML CONCENTRATE NEB NEB SCH ×4 (01:15→20:00)
[2016-06-25] MEDS ORDERED: OSELTAMIVIR PHOSPHATE 75 MG CAP (TAMIFLU) PO ONE (03:30)
[2016-06-25 03:52] VITALS: BP 136/92
[2016-06-25] MEDS: methylPREDNISolone INJ 125 MG/2 ML VIAL (J2930) IV SCH ×3 (05:30→21:59)
[2016-06-25 05:33] LABS: BASO % 0.6 % (0.0-1.0); EOS % 0.3 % (0.0-3.0); LARGE UNSTAINED CELL # 0.2 K/mm3 (0.0-0.4); LARGE UNSTAINED CELL % 5.3 % (0.0-4.0); LYMPH # 0.4 K/mm3 (1.5-4.5); LYMPH % 13.2 % (24.0-44.0); MEAN CORPUSCULAR HEMOGLOBIN 27.1 pg (27.0-33.0); MEAN CORPUSCULAR HGB CONC 30.8 g/dl (32.0-36.5); MEAN CORPUSCULAR VOLUME 88.1 fl (80.0-96.0); MONO # 0.2 K/mm3 (0.0-0.8); MONO % 4.5 % (0.0-5.0); NEUTROPHILS # 2.5 K/mm3 (1.8-7.7); NEUTROPHILS % 76.1 % (36.0-66.0); PLATELET COUNT, AUTOMATED 300 k/mm3 (150-450); RED CELL DISTRIBUTION WIDTH 17.6 % (11.5-14.5); WHITE BLOOD COUNT 3.3 K/mm3 (4.0-10.0)
[2016-06-25 05:38] LABS: INR 2.87
[2016-06-25 06:02] LABS: ANION GAP 10 MEQ/L (8-16); BLOOD UREA NITROGEN 8 MG/DL (7-18); CARBON DIOXIDE LEVEL 33 MEQ/L (21-32); CHLORIDE LEVEL 92 MEQ/L (98-107); CHOLESTEROL LEVEL 65 MG/DL (<200); CREATININE FOR GFR 0.86 MG/DL (0.70-1.30); GLOMERULAR FILTRATION RATE > 60.0 (>49); GLUCOSE, FASTING 245 MG/DL (80-110); SODIUM LEVEL 135 MEQ/L (136-145); TRIGLYCERIDES LEVEL 57 MG/DL (<150)
[2016-06-25] MEDS ORDERED: glipiZIDE 10 MG TAB PO SCH (07:30)
[2016-06-25] MEDS: TIOTROPIUM INHALER/CAPSULE (SPIRIVA) INH SCH (07:31)
[2016-06-25] MEDS: SYMBICORT 160/4.5MCG INHALER 6GM INH SCH ×2 (07:31→22:06)
--- NOTE | 2016-06-25 07:50 | ECGEPIP ---
Stationary ECG Study [facility] - ED Test Date: 2016-06-24 Pat Name: QUINN DANIELS Department: Room: [place] [address] Gender: M Sommelier: amberly : 1955 Requested By: DAMIAN LITTLE Order Number: [id number] Reading MD: Neyda Guerrero Measurements Intervals [place] Rate: 96 P: VT: 0 QRS: -33 QRSD: 95 T: 53 QT: 362 QTc: 459 Interpretive Statements ATRIAL FIBRILLATION BASELINE ARTIFACT LIMITS INTERPRETATION MARKED LEFT AXIS DEVIATION LOW QRS VOLTAGE IN EXTREMITY LEADS POSSIBLE INFERIOR MYOCARDIAL INFARCTION, PROBABLY OLD DECREASED RATE 08/23/15 Electronically Signed On 06-25-2016 7:49:43 EST by Neyda Guerrero
--- NOTE | 2016-06-25 07:51 | ECGEPIP ---
Stationary ECG Study [facility] - ED Test Date: 2016-06-24 Pat Name: QUINN DANIELS Department: Room: [place] [address] Gender: M Wire Stitcher: amberly : 1955 Requested By: DAMIAN LITTLE Order Number: [id number] Reading MD: Neyda Guerrero Measurements Intervals [place] Rate: 101 P: PA: 0 QRS: -18 QRSD: 89 T: 46 QT: 352 QTc: 456 Interpretive Statements ATRIAL FIBRILLATION WITH RAPID VENTRICULAR RESPONSE WITH ABERRANT CONDUCTION OR VENTRICULAR PREMATURE COMPLEXES LOW QRS VOLTAGE IN EXTREMITY LEADS POSSIBLE INFERIOR MYOCARDIAL INFARCTION, PROBABLY OLD ABNORMAL RHYTHM ECG BASELINE ARTIFACT LIMITS INTERPRETATION SIMILAR 18:10 Electronically Signed On 06-25-2016 7:50:54 EST by Neyda Guerrero
[2016-06-25 08:00] VITALS: BP 135/85
[2016-06-25] MEDS: HumaLOG INSULIN (NovoLOG) PER UNIT SC SCH ×4 (08:02→22:00)
[2016-06-25 08:06] LABS: VENOUS BASE EXCESS 8.3 (-2.0-2.0); VENOUS O2 SATURATION 75.7 % (60.0-80.0); VENOUS PARTIAL PRESSURE O2 44.6 mmHg (30.0-50.0); VENOUS STANDARD HCO3 31.6 MEQ/L; VENOUS TOTAL CO2 38.6 MEQ/L (24.0-28.0)
--- NOTE | 2016-06-25 08:38 | PHACANCOPD ---
PHARMACY VANCOMYCIN DOSING Pt Demographics Demographics Patient Age:60 , Weight:109.900 , Gender: male Adjusted Body Weight Date: 06/25/16, Adjusted Body Weight: [93.08] Kg Events Past 24 Hours Events Past 24 Hours: NO: Change in CrCl, Dialysis, Diuretic Therapy, Elevation in WBC, Fever, Other, Pending Diagnostics, Pending Procedures Vancomycin Vancomycin indication: SEPSIS Vancomycin Target Ranges: 15-20 mcg/ml Vancomycin Load Y/N: Yes Load Dose Date Time Vancomycin Load Dose: 2G Date: 06/25/16 Time: 08:30 Vancomycin Dose Date: 06/25/16. Current Vancomycin Dose: [1G Q8H] Intermittent Dosing?: No Labs Labs Item Value Date Time Creatinine 0.86 MG/DL 06/25/16 0444 White Blood Count 3.3 K/mm3 L 06/25/16 0444 Micro Microbiology 06/24/16 Blood Culture, Received Pending 06/24/16 Blood Culture, Received Pending 06/25/16 MRSA Screen, Resulted Pending 06/25/16 Respiratory Virus Panel (PCR) (HERNANDEZ) - Final, Resulted Influenza A H3 06/25/16 Gram Stain, Ordered Pending 06/25/16 Sputum Culture, Ordered Pending Creatinine Clearance Date:06/25/16. Creatinine Clearance: [103.5ML/MIN]. Assessment and Plan Maintaining Current Dose?: Yes Reason for dose change: No Dose Change Pharmacist Note Pharmacist Note Date: 06/25/16. Pharmacist note: Pt is a 60 y/o male being treated for sepsis, target trough set at 15-20mcg/ml. Pt has no history of vancomycin therapy here at [facility]. MRSA, sputum, blood, and gram stains are pending. To achieve goal trough a loading dose of 2g was gave 06/25 @ 9. Maintenance therapy will consist of 1g iv q8h. We will continue to monitor and adjust dose as needed. AMELIE [facility] Jun 25, 2016 08:38
[2016-06-25] MEDS: SODIUM CHLORIDE NASAL 0.65% SPRAY BTL (OCEAN) SCH ×3 (09:00→21:00)
[2016-06-25] MEDS: CYANOCOBALAMIN 500 MCG TAB PO SCH (09:33)
[2016-06-25] MEDS: VANCOMYCIN HCL 1,000 MG, VIAL MATE ADAPTER 1 EACH in D5W 250 ML IV SCH ×2 (09:33→17:51)
[2016-06-25] MEDS: guaiFENesin ER 600 MG TAB PO SCH ×2 (09:34→22:01)
[2016-06-25] MEDS: VITAMIN D 1,000 INTERNATIONAL UNITS TABLET PO SCH (09:34)
[2016-06-25] MEDS: ENALAPRIL MALEATE 10 MG TAB PO SCH (09:34)
[2016-06-25] MEDS: LORATADINE 10 MG TAB PO SCH (09:34)
[2016-06-25] MEDS: MAGNESIUM OXIDE 400 MG TAB (MAG-OX) PO SCH ×2 (09:34→22:01)
[2016-06-25] MEDS: MULTIVITAMINS/MINERALS THERAP 1 TAB PO SCH ×2 (09:34→22:01)
[2016-06-25] MEDS: FUROSEMIDE 80 MG TAB PO SCH (09:35)
[2016-06-25] MEDS: ALPRAZolam 0.25 MG TAB PO PRN ×2 (09:35→14:47)
[2016-06-25] MEDS: PRAVASTATIN 20 MG TAB PO SCH (09:35)
[2016-06-25] MEDS: PANTOPRAZOLE 40MG TAB (PROTONIX) PO SCH (09:35)
[2016-06-25] MEDS: OSELTAMIVIR PHOSPHATE 75 MG CAP (TAMIFLU) PO SCH ×2 (09:35→22:00)
[2016-06-25] MEDS ORDERED: VANCOMYCIN HCL 1,000 MG, VIAL MATE ADAPTER 1 EACH in D5W 250 ML IV ONE (10:00)
--- NOTE | 2016-06-25 11:01 | IPNPDOC ---
Text Note Date of Service The patient was seen on 06/25/16. NOTE Subjective: Patient is a 60-year-old male with acute influenza, COPD exacerbation seen for hospitalist follow-up. Patient says he feels very tired today but better than yesterday. He continues to complain of some shortness of breath which is worse than normal, he says he does not use any oxygen at home. He denies any fevers, chills, chest pain/pressure, abdominal pain, nausea, vomiting, diarrhea or constipation. Patient had a CT which showed lesion in his liver, patient reports that those have been there, he is currently being managed outpatient eye Dr. Jimenez for known pancreatic cancer. Objective: Vital signs: Temperature 97.5, MAXIMUM TEMPERATURE 97.5, pulse 92, respiratory rate 20, blood pressure 135/85, pulse ox 99% on 3 L nasal cannula Gen.: Patient awake, alert and oriented, verbal and able to answer questions appropriately. Patient does not appear to be in any acute distress Heart: Regular rate and rhythm, normal S1-S2. No murmurs, rubs, clicks or gallops Lungs: Clear to auscultation with poor airflow bilaterally Abdomen: Active bowel sounds, soft, nontender, no masses to palpation Extremities: Bilateral nonpitting lower extremity swelling Laboratory data: CBC: White blood cells 3.3, hemoglobin and hematocrit 10.8/35.2, platelets 300 Chemistry: Sodium 135, potassium 4.0, chloride 92, carbon monoxide 33, BUN 8, creatinine 0.86, glucose 245, calcium 8.0 Hemoglobin A1c 8.0 Lactic acid 1.7 Lipid panel: Triglycerides 57, cholesterol 65, LDL 26, HDL 27 Microbiology: Respiratory panel positive for influenza A H3 Sputum culture and Gram stain pending Blood cultures 2 pending Assessment: Patient is a 60-year-old male with acute influenza, COPD exacerbation. Patient reports that his breathing is slightly better than yesterday. Plan: #1: Acute influenza: Continue Tamiflu 75 mg by mouth twice a day #2: COPD exacerbation: Patient with slight improvement in breathing. Order will be placed for incentive spirometry. Continue azithromycin 500 mg IV every 24 hours, Symbicort 160/4.5 mcg 2 puffs twice a day, ipratropium bromide nebulizer 0.5 mg inhalation every 6 hours, Xopenex 1.25 mg inhalation every 6 hours and every hour when necessary, Solu-Medrol 80 mg IV every 8 hours, vancomycin 1 g IV every 8 hours, ceftriaxone 1 g IV daily. #3: Adenocarcinoma of head of pancreas: Patiently currently under care of Dr. Jimenez from oncology. CT showed potential lesions in the liver. Patient does not wish for any further evaluation of these while hospitalized. He will follow them up as outpatient with Dr. Jimenez. #4: Atrial fibrillation: Stable, continue warfarin #5: Type 2 diabetes mellitus: Stable, continue current medications #6: Hypertension: Continue diltiazem 120 mg by mouth twice a day, Lasix 80 mg by mouth every morning and 40 mg by mouth every evening #7: Hyperlipidemia: Stable, continue pravastatin 20 mg by mouth every morning #8: History of alcoholic liver disease: No more than 3 g of Tylenol per day #9: Obstructive sleep apnea: Stable, continue nightly CPAP #10: DVT prophylaxis: Patient currently on warfarin for atrial fibrillation My preceptor for this patient encounter was physically present in the building during the encounter and was fully available. As needed, all aspects of the patient interview, examination, medical decision making process, and medical care plan development were reviewed and approved by the preceptor. Preceptor is aware and concurs with the plan as stated in the body of this note and will attest to such by his/her cosignature Vern LILLY, I+O Vern LILLY, I+O Laboratory Tests 06/24/16 17:55 Calcium Level 8.0 L, Red Blood Count 4.24 L, Mean Corpuscular Volume 87.3, Mean Corpuscular Hemoglobin 27.3, Mean Corpuscular Hemoglobin Concent 31.3 L, Red Cell Distribution Width 17.7 H, Neutrophils (%) (Auto) 60.1, Lymphocytes (%) ( Auto) 20.2 L, Monocytes (%) (Auto) 11.3 H, Eosinophils (%) (Auto) 2.1, Basophils (%) (Auto) 0.6, Neutrophils # (Auto) 3.0, Lymphocytes # (Auto) 1.0 L, Monocytes # (Auto) 0.6, Eosinophils # (Auto) 0.1, Basophils # (Auto) 0.0 06/25/16 04:44 Red Blood Count 3.99 L, Mean Corpuscular Volume 88.1, Mean Corpuscular Hemoglobin 27.1, Mean Corpuscular Hemoglobin Concent 30.8 L, Red Cell Distribution Width 17.6 H, Neutrophils (%) (Auto) 76.1 H, Lymphocytes (%) (Auto ) 13.2 L, Monocytes (%) (Auto) 4.5, Eosinophils (%) (Auto) 0.3, Basophils (%) ( Auto) 0.6, Neutrophils # (Auto) 2.5, Lymphocytes # (Auto) 0.4 L, Monocytes # ( Auto) 0.2, Eosinophils # (Auto) 0.0, Basophils # (Auto) 0.0 Vital Signs Date Time Temp Pulse Resp B/P Pulse Ox O2 Delivery O2 Flow Rate FiO2 06/25/16 09:34 135/85 06/25/16 09:34 92 06/25/16 08:00 97.5 20 99 Nasal Cannula 3.0 I&O- Last 24 Hours up to 6 AM 06/25/16 06:00 Intake Total 120 ml Output Total 150 ml Balance -30 ml PUJA TAYLOR DO Jun 25, 2016 11:01
[2016-06-25 12:00] VITALS: BP 131/72
[2016-06-25] MEDS: FUROSEMIDE 40 MG TAB PO SCH (17:51)
[2016-06-25] MEDS: WARFARIN SOD 7.5 MG TAB PO SCH (17:52)
[2016-06-25] MEDS: AZITHROMYCIN INJ 500 MG, VIAL MATE ADAPTER 1 EACH in D5W 250 ML IV SCH (20:20)
[2016-06-25 22:00] VITALS: BP 122/74
[2016-06-26] MEDS: IPRATROPIUM 0.02% SOLN 0.5MG/2.5 ML NEB NEB SCH ×4 (01:14→20:00)
[2016-06-26] MEDS: LEVALBUTEROL 1.25 MG/0.5 ML CONCENTRATE NEB NEB SCH ×4 (01:14→20:00)
[2016-06-26] MEDS: VANCOMYCIN HCL 1,000 MG, VIAL MATE ADAPTER 1 EACH in D5W 250 ML IV SCH ×3 (01:42→17:10)
[2016-06-26] MEDS: methylPREDNISolone INJ 125 MG/2 ML VIAL (J2930) IV SCH ×3 (05:33→22:59)
[2016-06-26 06:00] VITALS: BP 133/57
[2016-06-26] MEDS: SYMBICORT 160/4.5MCG INHALER 6GM INH SCH ×2 (07:42→19:39)
[2016-06-26] MEDS: TIOTROPIUM INHALER/CAPSULE (SPIRIVA) INH SCH (07:42)
[2016-06-26 08:36] LABS: BASO % 0.3 % (0.0-1.0); EOS % 0.1 % (0.0-3.0); LARGE UNSTAINED CELL # 0.4 K/mm3 (0.0-0.4); LARGE UNSTAINED CELL % 3.7 % (0.0-4.0); LYMPH # 0.7 K/mm3 (1.5-4.5); LYMPH % 6.5 % (24.0-44.0); MEAN CORPUSCULAR HEMOGLOBIN 27.3 pg (27.0-33.0); MEAN CORPUSCULAR HGB CONC 30.6 g/dl (32.0-36.5); MEAN CORPUSCULAR VOLUME 89.3 fl (80.0-96.0); MONO # 0.3 K/mm3 (0.0-0.8); MONO % 2.9 % (0.0-5.0); NEUTROPHILS # 9.2 K/mm3 (1.8-7.7); NEUTROPHILS % 86.5 % (36.0-66.0); PLATELET COUNT, AUTOMATED 290 k/mm3 (150-450); RED CELL DISTRIBUTION WIDTH 17.6 % (11.5-14.5); WHITE BLOOD COUNT 10.7 K/mm3 (4.0-10.0)
[2016-06-26 08:47] LABS: INR 4.38
[2016-06-26 08:55] LABS: ANION GAP 6 MEQ/L (8-16); BLOOD UREA NITROGEN 9 MG/DL (7-18); CALCIUM LEVEL 8.6 MG/DL (8.8-10.2); CARBON DIOXIDE LEVEL 36 MEQ/L (21-32); CHLORIDE LEVEL 93 MEQ/L (98-107); GLOMERULAR FILTRATION RATE > 60.0 (>49); GLUCOSE, FASTING 297 MG/DL (80-110); POTASSIUM SERUM 4.3 MEQ/L (3.5-5.1); SODIUM LEVEL 135 MEQ/L (136-145)
[2016-06-26 09:00] VITALS: BP 122/74
[2016-06-26] MEDS: HumaLOG INSULIN (NovoLOG) PER UNIT SC SCH ×4 (09:50→21:00)
[2016-06-26] MEDS: OSELTAMIVIR PHOSPHATE 75 MG CAP (TAMIFLU) PO SCH ×2 (09:51→21:04)
[2016-06-26] MEDS: guaiFENesin ER 600 MG TAB PO SCH ×2 (09:51→21:04)
[2016-06-26] MEDS: ENALAPRIL MALEATE 10 MG TAB PO SCH (09:51)
[2016-06-26] MEDS: PRAVASTATIN 20 MG TAB PO SCH (09:51)
[2016-06-26] MEDS: FUROSEMIDE 80 MG TAB PO SCH (09:52)
[2016-06-26] MEDS: CYANOCOBALAMIN 500 MCG TAB PO SCH (09:52)
[2016-06-26] MEDS: VITAMIN D 1,000 INTERNATIONAL UNITS TABLET PO SCH (09:52)
[2016-06-26] MEDS: PANTOPRAZOLE 40MG TAB (PROTONIX) PO SCH (09:52)
[2016-06-26] MEDS: MULTIVITAMINS/MINERALS THERAP 1 TAB PO SCH ×2 (09:52→21:04)
[2016-06-26] MEDS: SODIUM CHLORIDE NASAL 0.65% SPRAY BTL (OCEAN) SCH ×3 (09:53→21:00)
[2016-06-26] MEDS: MAGNESIUM OXIDE 400 MG TAB (MAG-OX) PO SCH ×2 (09:53→21:04)
[2016-06-26] MEDS: LORATADINE 10 MG TAB PO SCH (09:53)
--- NOTE | 2016-06-26 10:18 | IPNPDOC ---
Text Note Date of Service The patient was seen on 06/26/16. NOTE Subjective: Patient is a 60-year-old male with acute influenza, COPD exacerbation, known pancreatic cancer seen for hospitalist follow-up. Patient says that he is feeling better than he has, he is still little bit short of breath but overall getting better. He denies any fevers, chills, sweats, chest pain/pressure, abdominal pain, nausea, vomiting, diarrhea, constipation. Objective: Vital signs: Temperature 98.3, MAXIMUM TEMPERATURE 99.3, pulse 69, respiratory rate 16, blood pressure 133/57, pulse ox 99% on 2 L Gen.: Patient awake, alert and oriented, verbal and able to answer questions appropriately. Patient does not appear to be in any acute distress Heart: Regular rate and rhythm, normal S1-S2. No murmurs, rubs, clicks or gallops Lungs: Clear to auscultation with poor airflow bilaterally Abdomen: Active bowel sounds, soft, nontender, no masses to palpation Extremities: Bilateral lower extremity swelling without pitting edema Laboratory data: CBC: White blood cells 10.7, hemoglobin and hematocrit 10.8/35.3, platelets 290 Chemistry: Sodium 135, potassium 4.3, chloride 93, Carbon dioxide 36, BUN 9, creatinine 0.0, glucose 297, calcium 8.6 AFP tumor marker 5.3 Microbiology: Blood cultures 2 no growth after 24 hours Assessment: Patient is a 60-year-old male with acute influenza, COPD exacerbation. Patient reports that his breathing is slightly better than yesterday. Plan: #1: Acute influenza: Continue Tamiflu 75 mg by mouth twice a day #2: COPD exacerbation: Patient with continued improvement for breathing. Continue azithromycin 500 mg IV every 24 hours, Symbicort 160/4.5 mcg 2 puffs twice a day, ipratropium bromide nebulizer 0.5 mg inhalation every 6 hours, Xopenex 1.25 mg inhalation every 6 hours and every hour as necessary, Solu- Medrol 80 mg IV every 8 hours, vancomycin 1 g IV every 8 hours, ceftriaxone 1 g IV daily #3: Adenocarcinoma of the head of pancreas: Patient currently under care of Dr. Jimenez from oncology. Patient will follow-up with Dr. Jimenez as outpatient #4: Atrial fibrillation: Elevated INR today, p.m. dose of warfarin will be held today. #5: Type 2 diabetes mellitus: Stable, continue current medications #6: Hypertension: Stable, continue diltiazem 120 mg by mouth twice a day, Lasix 80 mg by mouth every morning and 40 mg every evening #7: Hyperlipidemia: Stable, continue pravastatin 20 mg by mouth daily #8: History of alcoholic liver disease: No more than 3 g of Tylenol per day #9: Obstructive sleep apnea: Stable, continue nightly CPAP #10: DVT prophylaxis: Currently on warfarin for atrial fibrillation (warfarin being held today due to elevated INR) My preceptor for this patient encounter was physically present in the building during the encounter and was fully available. As needed, all aspects of the patient interview, examination, medical decision making process, and medical care plan development were reviewed and approved by the preceptor. Preceptor is aware and concurs with the plan as stated in the body of this note and will attest to such by his/her cosignature VIJAYA,Vern, I+O VS, Vern, I+O Laboratory Tests 06/26/16 08:19 Red Blood Count 3.95 L, Mean Corpuscular Volume 89.3, Mean Corpuscular Hemoglobin 27.3, Mean Corpuscular Hemoglobin Concent 30.6 L, Red Cell Distribution Width 17.6 H, Neutrophils (%) (Auto) 86.5 H, Lymphocytes (%) (Auto ) 6.5 L, Monocytes (%) (Auto) 2.9, Eosinophils (%) (Auto) 0.1, Basophils (%) ( Auto) 0.3, Neutrophils # (Auto) 9.2 H, Lymphocytes # (Auto) 0.7 L, Monocytes # ( Auto) 0.3, Eosinophils # (Auto) 0.0, Basophils # (Auto) 0.0 06/26/16 08:20 Calcium Level 8.6 L Vital Signs Date Time Temp Pulse Resp B/P Pulse Ox O2 Delivery O2 Flow Rate FiO2 06/26/16 09:53 69 133/57 06/26/16 06:00 98.3 16 99 NIPPV (BIPAP/CPAP) 2.0 I&O- Last 24 Hours up to 6 AM 06/26/16 06:00 Intake Total 1440 ml Output Total 225 ml Balance 1215 ml GME ATTESTATION GME ATTESTATION My preceptor for this patient encounter was physically present in the building during the encounter and was fully available. As needed, all aspects of the patient interview, examination, medical decision making process, and medical care plan development were reviewed and approved by the preceptor. Preceptor is aware and concurs with the plan as stated in the body of this note and will attest to such by his/her cosignature. ATTENDING NOTE I have both independently examined this patient as well as reviewed documentation. I have discussed the findings in detail with the author the findings and plan of treatment as documented in the note. I will continue to follow the patient and offer further guidance to the patients care as necessary. PUJA TAYLOR DO Jun 26, 2016 10:18 JOSE PAL DO Jul 03, 2016 14:38
[2016-06-26] MEDS: ALPRAZolam 0.25 MG TAB PO PRN ×3 (12:23→21:04)
[2016-06-26 14:00] VITALS: BP 122/72
--- NOTE | 2016-06-26 16:01 | PHACANCOPD ---
PHARMACY VANCOMYCIN DOSING Pt Demographics Demographics Patient Age:60 , Weight:109.900 , Gender: male Adjusted Body Weight Date: 06/25/16, Adjusted Body Weight: [93.08] Kg Events Past 24 Hours Events Past 24 Hours: NO: Change in CrCl, Dialysis, Diuretic Therapy, Elevation in WBC, Fever, Other, Pending Diagnostics, Pending Procedures Vancomycin Vancomycin indication: SEPSIS Vancomycin Target Ranges: 15-20 mcg/ml Vancomycin Load Y/N: Yes Load Dose Date Time Vancomycin Load Dose: 2G Date: 06/25/16 Time: 08:30 Vancomycin Dose Date: 06/25/16. Current Vancomycin Dose: [1G Q8H] Intermittent Dosing?: No Labs Micro Microbiology 06/24/16 Blood Culture - Preliminary, Resulted No growth after 24 hours . All specim... 06/24/16 Blood Culture - Preliminary, Resulted No growth after 24 hours . All specim... 06/25/16 MRSA Screen - Final, Complete 06/25/16 Respiratory Virus Panel (PCR) (HERNANDEZ) - Final, Complete Influenza A H3 06/25/16 Gram Stain, Ordered Pending 06/25/16 Sputum Culture, Ordered Pending Creatinine Clearance Date:06/25/16. Creatinine Clearance: [103.5ML/MIN]. Assessment and Plan Maintaining Current Dose?: Yes Reason for dose change: No Dose Change Pharmacist Note Pharmacist Note Date: 06/26/16. Pharmacist note: pt trough came back at 0800 today at 10.9mcg/ ml. Additional 1g is going to be given at 18:00 to boost trough. We will continue to monitor and adjust dose as needed. Date: 06/25/16. Pharmacist note: Pt is a 60 y/o male being treated for sepsis, target trough set at 15-20mcg/ml. Pt has no history of vancomycin therapy here at [facility]. MRSA, sputum, blood, and gram stains are pending. To achieve goal trough a loading dose of 2g was gave 06/25 @ 9. Maintenance therapy will consist of 1g iv q8h. We will continue to monitor and adjust dose as needed. AMELIE BELTRAN PHARMACY Jun 26, 2016 16:01
[2016-06-26] MEDS ORDERED: WARFARIN SOD 5 MG TAB PO SCH (17:00)
[2016-06-26] MEDS: FUROSEMIDE 40 MG TAB PO SCH (17:09)
[2016-06-26] MEDS ORDERED: VANCOMYCIN 1000 MG/20 ML VIAL (J3370) As Ordered ONE (17:13)
[2016-06-26] MEDS ORDERED: VANCOMYCIN HCL 1,000 MG, VIAL MATE ADAPTER 1 EACH in D5W 250 ML IV ONE (18:00)
[2016-06-26 19:38] VITALS: O2SAT 97
[2016-06-26] MEDS: AZITHROMYCIN INJ 500 MG, VIAL MATE ADAPTER 1 EACH in D5W 250 ML IV SCH (21:02)
[2016-06-26 22:00] VITALS: BP 131/62
[2016-06-26] MEDS: cefTRIAXone SOD 1 GM in D5W MINI-BAG PLUS 50 ML IV SCH (22:59)
--- NOTE | 2016-06-26 23:14 | EDDOCDS ---
Physician Documentation [facility] Name: Nolberto Bergeron Age: 60 yrs Sex: Male : 1955 Arrival Date: 06/24/2016 Time: 17:39 Bed 6 Private MD: Disposition: 06/24/16 19:59 Hospitalization ordered by Lis Martinez for Inpatient Admission. Preliminary diagnosis is Chronic obstructive pulmonary disease with (acute) exacerbation. - Bed requested for 4 Silver. - Status is Inpatient Admission. cz - Condition is Stable. - Problem is an acute exacerbation. - Symptoms are unchanged. Historical: - Allergies: no known allergies; - Home Meds: 1. albuterol sulfate 90 mcg/actuation Inhl HFAA 2 puffs as needed 2. Cardizem 120 mg Oral tab 1 tab twice a day (Last dose: 06/24/2016 16:00) 3. Coumadin 7.5 mg Oral tab 1 tab once daily (Last dose: 06/24/2016 08:00) 4. enalapril maleate 20 mg Oral tab 1 tab once daily (Last dose: 06/24/2016 08:00) 5. Lasix 80 mg oral tab 1 tab once daily (Last dose: 06/24/2016 08:00) 6. magnesium oxide 400 mg Oral cap twice a day (Last dose: 06/24/2016 08:00) 7. metformin 1,000 mg Oral tab 1 tab 2 times per day (Last dose: 06/24/2016 08:00) 8. pravastatin 20 mg oral tab 1 tab once daily (Last dose: 06/24/2016 07:00) - PMHx: Atrial Fib; COPD; Diabetes - NIDDM: controlled; Hypercholesterolemia; Hypertension; Cancer, Pancreas; - PSHx: Tonsillectomy; whipple procedure; - Social history: Smoking status: Patient states former smoker of tobacco. No barriers to communication noted, The patient speaks fluent Yi. - : The pt / caregiver states he / she is on anticoagulants: coumadin. Home medication list is obtained from [facility] import data. - Exposure Risk Screening:: None identified. - Family history: Not pertinent. Vital Signs: 06/24 17:48 BP 157 / 74 (auto/); kmg1 17:48 Pulse 106 MON; Pulse Ox 93% ; kmg1 17:52 BP 157 / 74; Pulse 102; Resp 28; Temp 98.7; Pulse Ox 94% 2 lpm ; Weight 113.4 kg / 250 rn1 lbs (R); Height 6 ft. 2 in. (187.96 cm) (R); Pain 0/10; 18:01 BP 152 / 83 (auto/); kmg1 18:01 Pulse 94 MON; Pulse Ox 95% ; kmg1 18:16 BP 170 / 81 (auto/); kmg1 18:16 Pulse 84 MON; Pulse Ox 95% ; kmg1 18:31 BP 162 / 76 (auto/); kmg1 18:31 Pulse 102 MON; Pulse Ox 97% ; kmg1 18:46 BP 155 / 77 (auto/); kmg1 18:46 Pulse 94 MON; Pulse Ox 100% ; kmg1 19:01 BP 162 / 74 (auto/); kmg1 19:01 Pulse 88 MON; Pulse Ox 96% ; kmg1 19:16 BP 161 / 75 (auto/); kmg1 19:16 Pulse 86 MON; Pulse Ox 95% ; kmg1 19:31 BP 153 / 72 (auto/); kmg1 19:31 Pulse 90 MON; Pulse Ox 97% ; kmg1 19:46 BP 155 / 75 (auto/); kmg1 19:46 Pulse 92 MON; Pulse Ox 97% ; kmg1 19:56 BP 127 / 73 (auto/); kmg1 19:56 Pulse 58 MON; Pulse Ox 95% ; kmg1 20:11 BP 120 / 74 (auto/); kmg1 20:11 Pulse 56 MON; Pulse Ox 97% ; kmg1 20:16 BP 131 / 75 (auto/); kmg1 20:16 Pulse 86 MON; Pulse Ox 95% ; kmg1 20:26 BP 124 / 69 (auto/); kmg1 20:26 Pulse 58 MON; Pulse Ox 96% ; kmg1 20:31 BP 136 / 68 (auto/); kmg1 20:31 Pulse 86 MON; Pulse Ox 98% ; kmg1 20:41 BP 125 / 70; Pulse 50 MON; Resp 22; Pulse Ox 96% ; kmg1 20:46 BP 141 / 67 (auto/); kmg1 20:46 Pulse 76 MON; Pulse Ox 96% ; kmg1 21:01 BP 125 / 66 (auto/); kmg1 21:01 Pulse 60 MON; Pulse Ox 95% ; kmg1 21:16 BP 157 / 72 (auto/); kmg1 21:16 Pulse 96 MON; Resp 20 S; Pulse Ox 96% ; kmg1 17:52 Body Mass Index 32.10 (113.40 kg, 187.96 cm) rn1 MDM: 17:58 -Blood Culture (Adults Only), peripheral from different site, or from device/port/PICC ke etc. if present ordered. 17:58 Chisel Worker/Pulse Ox/q 15 min VS ordered. ke 17:58 IV Saline Lock ordered. ke 17:58 Oxygen at 4L/Min NC or Home dosage ordered. ke 17:58 Rhythm Strip to chart ordered. ke 17:58 Albuterol-Ipratropium 1 neb Nebulizer every 20 minutes x3 ordered. ke 17:58 Call Respiratory ordered. ke 17:59 B-Type Natiuretic Peptide Ordered. EDMS 17:59 Basic Metabolic Profile Ordered. EDMS 17:59 CBC with Diff Ordered. EDMS 17:59 -Blood Culture Ordered. EDMS 17:59 Chest, 2 View (pa\E\lat) Ordered. EDMS 18:00 ECG WITH READING ER PHYS+CARDIAG ordered. EDMS 18:02 Call Respiratory complete. aa3 18:05 PT/INR Ordered. EDMS 18:07 -Blood Culture (Adults Only), peripheral from different site, or from device/port/PICC deg etc. if present complete. 18:08 BLOOD CULTURES Ordered. EDMS 18:10 [facility] Payment Agreement was scanned into [employer] and attached to record. jp5 18:10 Financial registration complete. jp5 18:24 ECG WITH READING ER PHYS+CARDIAG ordered. EDMS 19:30 Basic Metabolic Profile Reviewed. ke 19:30 CBC with Diff Reviewed. ke 19:30 PT/INR Reviewed. ke 19:30 B-Type Natiuretic Peptide Reviewed. ke 19:30 Chest, 2 View (pa\E\lat) Reviewed. ke 19:31 LORazepam 0.5 mg IVP once ordered. ke 19:31 Levalbuterol 1.25 mg Nebulizer once ordered. ke 20:15 PHYSICAL THERAPY EVAL & TREAT ordered. EDMS 20:15 Admission / Observation Status ordered. EDMS 20:15 COPD DIET ordered. EDMS 20:16 CBC WITH DIFFERENTIAL Ordered. EDMS 20:16 BASIC METABOLIC PROFILE Ordered. EDMS 20:16 INFLUENZA A&B RAPID ANTIGEN Ordered. EDMS 20:58 CT ANGIO CHEST Ordered. EDMS 21:14 HEMOGLOBIN A1C Ordered. EDMS 21:14 CARDIAC RISK PROFILE Ordered. EDMS 21:14 PROTHROMBIN TIME PROFILE\E\INR Ordered. EDMS 21:49 LEGIONELLA ANTIGEN URINE Ordered. EDMS 21:49 URINE STREP PNEUMONIAE ANTIGEN Ordered. EDMS 21:49 MRSA SCREEN Ordered. EDMS 21:49 RESPIRATORY PANEL Ordered. EDMS 21:49 SPUTUM CULTURE AND GRAM STAIN Ordered. EDMS 06/25 10:18 T-Sheet-- Draft Copy was scanned into [employer] and attached to record. Point of Care Testin/26 17:46 per EMS aa3 17:46 per EMS aa3 17:46 per EMS aa3 17:46 per EMS aa3 Ranges: Administered Medications: 18:05 Drug: Albuterol-Ipratropium 1 neb [ipratropium-albuterol 0.5 mg-3 mg(2.5 mg base)/3 mL lb nebulization soln (1 neb)] Route: Nebulizer; 18:13 Drug: Albuterol-Ipratropium 1 neb [ipratropium-albuterol 0.5 mg-3 mg(2.5 mg base)/3 mL lb nebulization soln (1 neb)] Route: Nebulizer; 18:21 Drug: Albuterol-Ipratropium 1 neb [ipratropium-albuterol 0.5 mg-3 mg(2.5 mg base)/3 mL lb nebulization soln (1 neb)] Route: Nebulizer; 19:48 Drug: LORazepam 0.5 mg [lorazepam 2 mg/mL injection solution (0.25 mL)] [place]: [place] [facility] [place] antecubital; 20:31 Follow up: Response: An[place] is [place] [facility] [place] Drug: Levalbuterol 1.25 mg [levalbuterol 1.25 mg/0.5 mL solution for nebulization (0.5 jc3 mL)] Route: Nebulizer; Signatures: Dispatcher [employer] EDAide Daniel, Fmd Teacher Unit deg Kemar Lozano, ARDEN RN Monique Rosario, Reg Reg gb Efrain Quevedo, FILLING MIXER FILLING MIXER ke Larissa Dominguez, SMALL BATTERY PLATE ASSEMBLER SMALL BATTERY PLATE ASSEMBLER tmm1 Diana Woods,RN RN aa3 Samuel Hearn jp5 Nancy Vyas RN kmg1 Myrna Abdi Joseph jc3 The chart was reviewed and I authenticate all verbal orders and agree with the evaluation and treatment provided.Corrections: (The following items were deleted from the chart) 21:03 20:54 CT ANGIO CHEST ordered. EDMS EDMS Attachments: 18:10 [facility] Payment Agreement jp5 06/25 10:18 T-Sheet-- Draft Copy gb Chart Complete MTDD
--- NOTE | 2016-06-26 23:14 | EDDOCDS ---
Physician Documentation [facility] Name: Nolberto Bergeron Age: 60 yrs Sex: Male : 1955 Arrival Date: 06/24/2016 Time: 17:39 Bed 6 Private MD: Disposition: 06/24/16 19:59 Hospitalization ordered by Lis Martinez for Inpatient Admission. Preliminary diagnosis is Chronic obstructive pulmonary disease with (acute) exacerbation. - Bed requested for 4 [place]. - Status is Inpatient Admission. cz - Condition is Stable. - Problem is an acute exacerbation. - Symptoms are unchanged. Historical: - Allergies: no known allergies; - Home Meds: 1. albuterol sulfate 90 mcg/actuation Inhl HFAA 2 puffs as needed 2. Cardizem 120 mg Oral tab 1 tab twice a day (Last dose: 06/24/2016 16:00) 3. Coumadin 7.5 mg Oral tab 1 tab once daily (Last dose: 06/24/2016 08:00) 4. enalapril maleate 20 mg Oral tab 1 tab once daily (Last dose: 06/24/2016 08:00) 5. Lasix 80 mg oral tab 1 tab once daily (Last dose: 06/24/2016 08:00) 6. magnesium oxide 400 mg Oral cap twice a day (Last dose: 06/24/2016 08:00) 7. metformin 1,000 mg Oral tab 1 tab 2 times per day (Last dose: 06/24/2016 08:00) 8. pravastatin 20 mg oral tab 1 tab once daily (Last dose: 06/24/2016 07:00) - PMHx: Atrial Fib; COPD; Diabetes - NIDDM: controlled; Hypercholesterolemia; Hypertension; Cancer, Pancreas; - PSHx: Tonsillectomy; whipple procedure; - Social history: Smoking status: Patient states former smoker of tobacco. No barriers to communication noted, The patient speaks fluent Turkish. - : The pt / caregiver states he / she is on anticoagulants: coumadin. Home medication list is obtained from [employer] import data. - Exposure Risk Screening:: None identified. - Family history: Not pertinent. Vital Signs: 06/24 17:48 BP 157 / 74 (auto/); kmg1 17:48 Pulse 106 MON; Pulse Ox 93% ; kmg1 17:52 BP 157 / 74; Pulse 102; Resp 28; Temp 98.7; Pulse Ox 94% 2 lpm ; Weight 113.4 kg / 250 rn1 lbs (R); Height 6 ft. 2 in. (187.96 cm) (R); Pain 0/10; 18:01 BP 152 / 83 (auto/); kmg1 18:01 Pulse 94 MON; Pulse Ox 95% ; kmg1 18:16 BP 170 / 81 (auto/); kmg1 18:16 Pulse 84 MON; Pulse Ox 95% ; kmg1 18:31 BP 162 / 76 (auto/); kmg1 18:31 Pulse 102 MON; Pulse Ox 97% ; kmg1 18:46 BP 155 / 77 (auto/); kmg1 18:46 Pulse 94 MON; Pulse Ox 100% ; kmg1 19:01 BP 162 / 74 (auto/); kmg1 19:01 Pulse 88 MON; Pulse Ox 96% ; kmg1 19:16 BP 161 / 75 (auto/); kmg1 19:16 Pulse 86 MON; Pulse Ox 95% ; kmg1 19:31 BP 153 / 72 (auto/); kmg1 19:31 Pulse 90 MON; Pulse Ox 97% ; kmg1 19:46 BP 155 / 75 (auto/); kmg1 19:46 Pulse 92 MON; Pulse Ox 97% ; kmg1 19:56 BP 127 / 73 (auto/); kmg1 19:56 Pulse 58 MON; Pulse Ox 95% ; kmg1 20:11 BP 120 / 74 (auto/); kmg1 20:11 Pulse 56 MON; Pulse Ox 97% ; kmg1 20:16 BP 131 / 75 (auto/); kmg1 20:16 Pulse 86 MON; Pulse Ox 95% ; kmg1 20:26 BP 124 / 69 (auto/); kmg1 20:26 Pulse 58 MON; Pulse Ox 96% ; kmg1 20:31 BP 136 / 68 (auto/); kmg1 20:31 Pulse 86 MON; Pulse Ox 98% ; kmg1 20:41 BP 125 / 70; Pulse 50 MON; Resp 22; Pulse Ox 96% ; kmg1 20:46 BP 141 / 67 (auto/); kmg1 20:46 Pulse 76 MON; Pulse Ox 96% ; kmg1 21:01 BP 125 / 66 (auto/); kmg1 21:01 Pulse 60 MON; Pulse Ox 95% ; kmg1 21:16 BP 157 / 72 (auto/); kmg1 21:16 Pulse 96 MON; Resp 20 S; Pulse Ox 96% ; kmg1 17:52 Body Mass Index 32.10 (113.40 kg, 187.96 cm) rn1 MDM: 17:58 -Blood Culture (Adults Only), peripheral from different site, or from device/port/PICC ke etc. if present ordered. 17:58 Radio News Writer/Pulse Ox/q 15 min VS ordered. ke 17:58 IV Saline Lock ordered. ke 17:58 Oxygen at 4L/Min NC or Home dosage ordered. ke 17:58 Rhythm Strip to chart ordered. ke 17:58 Albuterol-Ipratropium 1 neb Nebulizer every 20 minutes x3 ordered. ke 17:58 Call Respiratory ordered. ke 17:59 B-Type Natiuretic Peptide Ordered. EDMS 17:59 Basic Metabolic Profile Ordered. EDMS 17:59 CBC with Diff Ordered. EDMS 17:59 -Blood Culture Ordered. EDMS 17:59 Chest, 2 View (pa\E\lat) Ordered. EDMS 18:00 ECG WITH READING ER PHYS+CARDIAG ordered. EDMS 18:02 Call Respiratory complete. aa3 18:05 PT/INR Ordered. EDMS 18:07 -Blood Culture (Adults Only), peripheral from different site, or from device/port/PICC deg etc. if present complete. 18:08 BLOOD CULTURES Ordered. EDMS 18:10 [facility] Payment Agreement was scanned into [employer] and attached to record. jp5 18:10 Financial registration complete. jp5 18:24 ECG WITH READING ER PHYS+CARDIAG ordered. EDMS 19:30 Basic Metabolic Profile Reviewed. ke 19:30 CBC with Diff Reviewed. ke 19:30 PT/INR Reviewed. ke 19:30 B-Type Natiuretic Peptide Reviewed. ke 19:30 Chest, 2 View (pa\E\lat) Reviewed. ke 19:31 LORazepam 0.5 mg IVP once ordered. ke 19:31 Levalbuterol 1.25 mg Nebulizer once ordered. ke 20:15 PHYSICAL THERAPY EVAL & TREAT ordered. EDMS 20:15 Admission / Observation Status ordered. EDMS 20:15 COPD DIET ordered. EDMS 20:16 CBC WITH DIFFERENTIAL Ordered. EDMS 20:16 BASIC METABOLIC PROFILE Ordered. EDMS 20:16 INFLUENZA A&B RAPID ANTIGEN Ordered. EDMS 20:58 CT ANGIO CHEST Ordered. EDMS 21:14 HEMOGLOBIN A1C Ordered. EDMS 21:14 CARDIAC RISK PROFILE Ordered. EDMS 21:14 PROTHROMBIN TIME PROFILE\E\INR Ordered. EDMS 21:49 LEGIONELLA ANTIGEN URINE Ordered. EDMS 21:49 URINE STREP PNEUMONIAE ANTIGEN Ordered. EDMS 21:49 MRSA SCREEN Ordered. EDMS 21:49 RESPIRATORY PANEL Ordered. EDMS 21:49 SPUTUM CULTURE AND GRAM STAIN Ordered. EDMS 06/25 10:18 T-Sheet-- Draft Copy was scanned into [employer] and attached to record. Point of Care Testin/26 17:46 per EMS aa3 17:46 per EMS aa3 17:46 per EMS aa3 17:46 per EMS aa3 Ranges: Administered Medications: 18:05 Drug: Albuterol-Ipratropium 1 neb [ipratropium-albuterol 0.5 mg-3 mg(2.5 mg base)/3 mL lb nebulization soln (1 neb)] Route: Nebulizer; 18:13 Drug: Albuterol-Ipratropium 1 neb [ipratropium-albuterol 0.5 mg-3 mg(2.5 mg base)/3 mL lb nebulization soln (1 neb)] Route: Nebulizer; 18:21 Drug: Albuterol-Ipratropium 1 neb [ipratropium-albuterol 0.5 mg-3 mg(2.5 mg base)/3 mL lb nebulization soln (1 neb)] Route: Nebulizer; 19:48 Drug: LORazepam 0.5 mg [lorazepam 2 mg/mL injection solution (0.25 mL)] Route: IVP; [facility] [place] Site: left antecubital; 20:31 Follow up: Response: Anxiety is improved [facility] [place] 19:56 Drug: Levalbuterol 1.25 mg [levalbuterol 1.25 mg/0.5 mL solution for nebulization (0.5 jc3 mL)] Route: Nebulizer; Signatures: Dispatcher [employer] EDAide Daniel, Photofinishing Laboratory Worker Unit deg Kemar Lozano, ARDEN RN Monique Rosario, Reg Reg gb Efrain Quevedo, ICE CREAM FREEZER HELPER ICE CREAM FREEZER HELPER ke Larissa Dominguez, LITHOGRAPHIC PRESS OPERATOR APPRENTICE LITHOGRAPHIC PRESS OPERATOR APPRENTICE tmm1 Diana Woods,RN RN aa3 Samuel Hearn jp5 Nancy Vyas RN kmg1 Myrna Abdi Joseph jc3 The chart was reviewed and I authenticate all verbal orders and agree with the evaluation and treatment provided.Corrections: (The following items were deleted from the chart) 21:03 20:54 CT ANGIO CHEST ordered. EDMS EDMS Attachments: 18:10 [facility] Payment Agreement jp5 06/25 10:18 T-Sheet-- Draft Copy gb Chart Complete MTDD
--- NOTE | 2016-06-26 23:15 | EDDOCDS ---
Nurse's Notes [facility] Name: Nolberto Bergeron Age: 60 yrs Sex: Male : 1955 Arrival Date: 06/24/2016 Time: 17:39 Bed 6 Private MD: Diagnosis: Chronic obstructive pulmonary disease with (acute) exacerbation Presentation: 06/24 17:42 Presenting complaint: EMS states: Patient has been feeling unwell for 3 days. aa3 Progressive shortness of breath, took two breathing treatments prior to calling EMS. Seen at [place] . Adult Sepsis Screening: The patient does not have new or worsening altered mentation. Patient has a respiratory rate of greater than or equal to 22 (1 point). Systolic blood pressure is greater than 100. Patient has a qSOFA score of 1- Negative Sepsis Screen. Suicide/Homicide risk assessment- the patient denies having any suicidal and/or homicidal ideations and does not present with any other emotional, behavioral or mental health complaints. Status: Patient is not a business services vice president or dependent. Transition of care: patient was not received from another setting of care. 17:42 Acuity: EVELYN Level 2 aa3 17:42 Method Of Arrival: Ambulance aa3 Triage Assessment: 17:53 General: Appears uncomfortable, Behavior is appropriate for age, cooperative. Pain: aa3 Denies pain. Pt Declines HIV testing. Neurological: Level of Consciousness is awake, alert, Oriented to person, place, time. Cardiovascular: Capillary refill < 3 seconds Rhythm is atrial fibrillation. Respiratory: Onset: The symptoms/episode began/occurred gradually, Airway is patent Respiratory effort is even, labored, using tripod position, Respiratory pattern is tachypnea Breath sounds are diminished in right posterior upper lobe, left posterior lower lobe, right posterior middle lobe and right posterior lower lobe. GI: Abdomen is non- distended. : Urine is clear. Derm: Skin is intact, is healthy with good turgor, Skin is dry. Musculoskeletal: No deficits noted. Historical: - Allergies: no known allergies; - Home Meds: 1. albuterol sulfate 90 mcg/actuation Inhl HFAA 2 puffs as needed 2. Cardizem 120 mg Oral tab 1 tab twice a day (Last dose: 06/24/2016 16:00) 3. Coumadin 7.5 mg Oral tab 1 tab once daily (Last dose: 06/24/2016 08:00) 4. enalapril maleate 20 mg Oral tab 1 tab once daily (Last dose: 06/24/2016 08:00) 5. Lasix 80 mg oral tab 1 tab once daily (Last dose: 06/24/2016 08:00) 6. magnesium oxide 400 mg Oral cap twice a day (Last dose: 06/24/2016 08:00) 7. metformin 1,000 mg Oral tab 1 tab 2 times per day (Last dose: 06/24/2016 08:00) 8. pravastatin 20 mg oral tab 1 tab once daily (Last dose: 06/24/2016 07:00) - PMHx: Atrial Fib; COPD; Diabetes - NIDDM: controlled; Hypercholesterolemia; Hypertension; Cancer, Pancreas; - PSHx: Tonsillectomy; whipple procedure; - Social history: Smoking status: Patient states former smoker of tobacco. No barriers to communication noted, The patient speaks fluent Ukrainian. - : The pt / caregiver states he / she is on anticoagulants: coumadin. Home medication list is obtained from [employer] data. - Exposure Risk Screening:: None identified. - Family history: Not pertinent. Screenin:57 Screening information is obtained from the patient. Fall risk: No risks identified. aa3 Assistance ADL's: requires no assistance with activities of daily living. Abuse/DV Screen: The patient / caregiver reports he/she is: not in a situation that causes fear, pain or injury. Nutritional screening: No deficits noted. Advance Directives: Currently, there is no health care proxy. There is no active DNR order. There is no living will. home support is adequate. Assessment: 19:05 General: Appears ill, Behavior is appropriate for age, cooperative, pleasant. Pain: kmg1 Denies pain. Neurological: Level of Consciousness is awake, alert. EENT: No deficits noted. Cardiovascular: Rhythm is sinus rhythm. Respiratory: Airway is patent Respiratory effort is labored, Respiratory pattern is regular, symmetrical, Breath sounds are diminished in left posterior upper lobe, right posterior upper lobe, left posterior lower lobe, right posterior middle lobe and right posterior lower lobe Reports shortness of breath at rest on exertion. 19:50 General: Patient feeling anxious and SOB. Medicated per order. Provider aware. kmg1 20:50 General: Appears in no apparent distress, comfortable, Behavior is appropriate for age. kmg1 Respiratory: Airway is patent Respiratory effort is even, labored, Respiratory pattern is regular, symmetrical, Breath sounds are diminished bilaterally. 21:57 General: Appears in no apparent distress, comfortable, Behavior is appropriate for age, kmg1 cooperative, pleasant. Respiratory: Airway is patent Respiratory effort is even, labored, Respiratory pattern is regular, symmetrical, Breath sounds are diminished bilaterally. Vital Signs: 17:48 BP 157 / 74 (auto/); kmg1 17:48 Pulse 106 MON; Pulse Ox 93% ; kmg1 17:52 BP 157 / 74; Pulse 102; Resp 28; Temp 98.7; Pulse Ox 94% 2 lpm ; Weight 113.4 kg (R); rn1 Height 6 ft. 2 in. (187.96 cm) (R); Pain 0/10; 18:01 BP 152 / 83 (auto/); kmg1 18:01 Pulse 94 MON; Pulse Ox 95% ; kmg1 18:16 BP 170 / 81 (auto/); kmg1 18:16 Pulse 84 MON; Pulse Ox 95% ; kmg1 18:31 BP 162 / 76 (auto/); kmg1 18:31 Pulse 102 MON; Pulse Ox 97% ; kmg1 18:46 BP 155 / 77 (auto/); kmg1 18:46 Pulse 94 MON; Pulse Ox 100% ; kmg1 19:01 BP 162 / 74 (auto/); kmg1 19:01 Pulse 88 MON; Pulse Ox 96% ; kmg1 19:16 BP 161 / 75 (auto/); kmg1 19:16 Pulse 86 MON; Pulse Ox 95% ; kmg1 19:31 BP 153 / 72 (auto/); kmg1 19:31 Pulse 90 MON; Pulse Ox 97% ; kmg1 19:46 BP 155 / 75 (auto/); kmg1 19:46 Pulse 92 MON; Pulse Ox 97% ; kmg1 19:56 BP 127 / 73 (auto/); kmg1 19:56 Pulse 58 MON; Pulse Ox 95% ; kmg1 20:11 BP 120 / 74 (auto/); kmg1 20:11 Pulse 56 MON; Pulse Ox 97% ; kmg1 20:16 BP 131 / 75 (auto/); kmg1 20:16 Pulse 86 MON; Pulse Ox 95% ; kmg1 20:26 BP 124 / 69 (auto/); kmg1 20:26 Pulse 58 MON; Pulse Ox 96% ; kmg1 20:31 BP 136 / 68 (auto/); kmg1 20:31 Pulse 86 MON; Pulse Ox 98% ; kmg1 20:41 BP 125 / 70; Pulse 50 MON; Resp 22; Pulse Ox 96% ; kmg1 20:46 BP 141 / 67 (auto/); kmg1 20:46 Pulse 76 MON; Pulse Ox 96% ; kmg1 21:01 BP 125 / 66 (auto/); kmg1 21:01 Pulse 60 MON; Pulse Ox 95% ; kmg1 21:16 BP 157 / 72 (auto/); kmg1 21:16 Pulse 96 MON; Resp 20 S; Pulse Ox 96% ; kmg1 17:52 Body Mass Index 32.10 (113.40 kg, 187.96 cm) rn1 Vitals: 17:46 Log In Time N/A - ambulance arrival. aa3 ED Course: 17:40 Patient visited by Aide Bravo, Catering Director. deg 17:40 Patient moved to Waiting deg 17:41 Patient moved to 6 deg 17:42 Diana Woods,RN is Primary Nurse. aa3 17:45 Triage Initiated aa3 17:48 Patient visited by Diana Woods,ARDEN. aa3 17:55 [facility] ke 17[facility]55 Patient visited by Efrain Quevedo FNP. ke 17:57 Patient visited by Efrain Quevedo FNP. ke 17:57 The patient / caregiver is instructed regarding the plan of care and ED course. Cardiac aa3 monitor on. Pulse ox on. NIBP on. 17:57 Maintain field IV. Dressing intact. Good blood return noted. Site clean & dry. Gauge & aa3 site: 18 Left forearm. O2 via nasal cannula \T\ 4L/min. 17:59 Patient visited by Diana Woods RN. aa3 18:00 -Blood Culture Sent. kc3 18:00 B-Type Natiuretic Peptide Sent. kc3 18:00 Basic Metabolic Profile Sent. kc3 18:00 CBC with Diff Sent. kc3 18:10 [facility] Payment Agreement was scanned into [employer] and attached to record. jp5 18:16 Patient visited by Al Graham PCA. jmv 18:16 EKG done. (by ED staff). Reviewed by Efrain LITTLE. jmv 18:29 BLOOD CULTURES Sent. aa3 18:33 Patient visited by Al Graham PCA. jmv 18:33 EKG done. (by ED staff). Reviewed by Efrain LITTLE. jmv 19:03 Patient visited by Efrain Quevedo FNP. ke 19:21 Chest, 2 View (pa\E\lat) Returned. EDMS 19:40 Patient visited by Efrain Quevedo FNP. ke 19:59 Lis Martinez is Hospitalizing Provider. ke 20:18 Patient visited by Nancy Vyas, RN. km 20:31 Patient visited by Nancy Vyas, RN. km 22:00 No procedures done that require assistance. [facility] 22:01 Patient visited by Nancy Vyas, ARDEN. [facility] 22:07 CT ANGIO CHEST Returned. EDNM 06/25 10:18 T-Sheet-- Draft Copy was scanned into [employer] and attached to record. gb Administered Medications: 06/24 18:05 Drug: Albuterol-Ipratropium 1 neb [ipratropium-albuterol 0.5 mg-3 mg(2.5 mg base)/3 mL lb nebulization soln (1 neb)] Route: Nebulizer; 18:13 Drug: Albuterol-Ipratropium 1 neb [ipratropium-albuterol 0.5 mg-3 mg(2.5 mg base)/3 mL lb nebulization soln (1 neb)] Route: Nebulizer; 18:21 Drug: Albuterol-Ipratropium 1 neb [ipratropium-albuterol 0.5 mg-3 mg(2.5 mg base)/3 mL lb nebulization soln (1 neb)] Route: Nebulizer; 19:48 Drug: LORazepam 0.5 mg [lorazepam 2 mg/mL injection solution (0.25 mL)] Route: IVP; [facility] Site: left antecubital; 20:31 Follow up: Response: Anxiety is improved [facility] 19:56 Drug: Levalbuterol 1.25 mg [levalbuterol 1.25 mg/0.5 mL solution for nebulization (0.5 jc3 mL)] Route: Nebulizer; Point of Care Testin:46 per EMS aa3 17:46 per EMS aa3 17:46 per EMS aa3 17:46 per EMS aa3 Ranges: RT: 18:05 Initial Med Neb Given as ordered Patient was instructed and evaluated on procedure lb Patient tolerated procedure well without adverse effect. Respiratory: Breath sounds are diminished bilaterally. 18:13 Subsequent Med Neb Given as ordered Patient tolerated procedure well without adverse lb effect. 18:21 Unable to give med neb MED WASTED. lb 19:56 Subsequent Med Neb Given as ordered. O2 via nasal cannula. Respiratory: Breath sounds jc3 are diminished bilaterally. Order Results: Lab Order: B-Type Natiuretic Peptide; SPEC'M 06/24/16 17:55 Test: BRAIN NATRIURETIC PEPTIDE; Value: 40.9; Range: <100; Units: PG/ML; Status: F Lab Order: Basic Metabolic Profile; SPEC'M 06/24/16 17:55 Test: GLUCOSE, FASTING; Value: 123; Range: 80-110; Abnormal: Above high normal; Units: MG/DL; Status: F Test: BLOOD UREA NITROGEN; Value: 6; Range: 7-18; Abnormal: Below low normal; Units: MG/DL; Status: F Test: CREATININE FOR GFR; Value: 0.72; Range: 0.70-1.30; Units: MG/DL; Status: F Test: GLOMERULAR FILTRATION RATE; Value: > 60.0; Range: >49; Status: F Test: SODIUM LEVEL; Value: 137; Range: 136-145; Units: MEQ/L; Status: F Test: POTASSIUM SERUM; Value: 3.4; Range: 3.5-5.1; Abnormal: Below low normal; Units: MEQ/L; Status: F Test: CHLORIDE LEVEL; Value: 94; Range: 98-107; Abnormal: Below low normal; Units: MEQ/L; Status: F Test: CARBON DIOXIDE LEVEL; Value: 34; Range: 21-32; Abnormal: Above high normal; Units: MEQ/L; Status: F Test: ANION GAP; Value: 9; Range: 8-16; Units: MEQ/L; Status: F Test: CALCIUM LEVEL; Value: 8.0; Range: 8.8-10.2; Abnormal: Below low normal; Units: MG/DL; Status: F Test Note: ; Units are mL/min/1.73 m2 Chronic Kidney Disease Staging per NKF: Stage I & II GFR >=60 Normal to Mildly Decreased Stage III GFR 30-59 Moderately Decreased Stage IV GFR 15-29 Severely Decreased Stage V GFR <15 Very Little GFR Left ESRD GFR <15 on [facility] Lab Order: CBC with Diff; [place] 06/24/16 17:55 Test: WHITE BLOOD COUNT; Value: 4.9; Range: 4.0-10.0; Units: K/mm3; Status: F Test: RED BLOOD COUNT; Value: 4.24; Range: 4.30-6.10; Abnormal: Below low normal; Units: M/mm3; Status: F Test: HEMOGLOBIN; Value: 11.6; Range: 14.0-18.0; Abnormal: Below low normal; Units: g/dl; Status: F Test: HEMATOCRIT; Value: 37.0; Range: 42.0-52.0; Abnormal: Below low normal; Units: %; Status: F Test: MEAN CORPUSCULAR VOLUME; Value: 87.3; Range: 80.0-96.0; Units: fl; Status: F Test: MEAN CORPUSCULAR HEMOGLOBIN; Value: 27.3; Range: 27.0-33.0; Units: pg; Status: F Test: MEAN CORPUSCULAR HGB CONC; Value: 31.3; Range: 32.0-36.5; Abnormal: Below low normal; Units: g/dl; Status: F Test: RED CELL DISTRIBUTION WIDTH; Value: 17.7; Range: 11.5-14.5; Abnormal: Above high normal; Units: %; Status: F Test: PLATELET COUNT, AUTOMATED; Value: 354; Range: 150-450; Units: k/mm3; Status: F Test: NEUTROPHILS %; Value: 60.1; Range: 36.0-66.0; Units: %; Status: F Test: LYMPH %; Value: 20.2; Range: 24.0-44.0; Abnormal: Below low normal; Units: %; Status: F Test: MONO %; Value: 11.3; Range: 0.0-5.0; Abnormal: Above high normal; Units: %; Status: F Test: EOS %; Value: 2.1; Range: 0.0-3.0; Units: %; Status: F Test: BASO %; Value: 0.6; Range: 0.0-1.0; Units: %; Status: F Test: LARGE UNSTAINED CELL %; Value: 5.8; Range: 0.0-4.0; Abnormal: Above high normal; Units: %; Status: F Test: NEUTROPHILS #; Value: 3.0; Range: 1.8-7.7; Units: K/mm3; Status: F Test: LYMPH #; Value: 1.0; Range: 1.5-4.5; Abnormal: Below low normal; Units: K/mm3; Status: F Test: MONO #; Value: 0.6; Range: 0.0-0.8; Units: K/mm3; Status: F Test: EOS #; Value: 0.1; Range: 0.0-0.50; Units: K/mm3; Status: F Test: BASO #; Value: 0.0; Range: 0.0-0.2; Units: K/mm3; Status: F Test: LARGE UNSTAINED CELL #; Value: 0.3; Range: 0.0-0.4; Units: K/mm3; Status: F Lab Order: PT/INR; SPEC'M 06/24/16 17:55 Test: PROTHROMBIN TIME; Value: 25.0; Range: 12.3-14.5; Abnormal: Above high normal; Units: SECONDS; Status: F Test: INR; Value: 2.26; Status: F Test Note: ; THERAPUTIC HUMAN INR VALUES INDICATIONS NORMAL RANGES PROPHYLAXIS/TREATMENT OF: VENOUS THROMBOSIS 2.0-3.0 PULMONARY EMBOLISM 2.0-3.0 PREVENTION OF SYSTEMIC EMBOLISM FROM: TISSUE HEART VALVES 2.0-3.0 ACUTE MYOCARDIAL INFARCTION 2.0-3.0 VALVULAR HEART DISEASE 2.0-3.0 ATRIAL FIBRILLATION 2.0-3.0 MECHANICAL VALVES(HIGH RISK) 2.5-3.5 RECURRENT MYOCARDIAL INFARCTION 2.5-3.5 Radiology Order: Chest, 2 View (pa\E\lat) Test: Chest, 2 View (pa\E\lat) REASON FOR EXAMINATION: Shortness of Breath; Clinical: Shortness of breath.; ; Technique: PA and lateral.; ; Comparison: 02/16/2016.; ; Findings:; Right-sided opacity in the right lower lobe appears slightly more dense than; prior examination. Bilateral pleuroparenchymal changes (right greater than left); primarily involving the bilateral lung bases and inferior pleural surfaces; appears similar to prior examination. Cardiac silhouette is stable.; [id number] with tip in the SVC again noted. No pneumothorax. Skeletal; structures grossly intact.; ; Impression:; 1. Right lower lobe opacity appears slightly more pronounced and dense than; prior examination and may reflect increasing process.; 2. Bilateral pleuroparenchymal changes are similar to prior examination.; ; ; Signed by; Eduardo Mariano MD 06/24/2016 06:45 P; Radiology Order: CT ANGIO CHEST Test: CT ANGIO CHEST REASON FOR EXAMINATION: sob r/o pe history of pancreatic ca.; ; CT angiogram of the chest; Clinical statement: Chest pain and shortness of breath.; Technique: Multiple axial CT images were obtained from the thoracic inlet through the upper abdomen a; fter a bolus administration of nonionic intravenous contrast. Coronal and sagittal reconstructions we; re also obtained.; Comparison: 11/11/2015.; Findings: The pulmonary arteries are well-opacified with contrast, with no intraluminal filling defec; ts to suggest embolism. The thoracic aorta is unremarkable. Thyroid gland is within normal limits. Th; ere is no thoracic lymphadenopathy. There are small bilateral pleural effusions. There is patchy infi; ltrates throughout the right lower lung. Small areas of infiltrate are seen in the left lower lobe. S; evere emphysematous changes are seen in the right lower lobe, with mild emphysematous changes seen th; roughout the remainder of the lungs. Limited imaging of the upper abdomen is unremarkable. There are; two ill-defined low attenuation lesions in the posterior right lobe of the liver, the largest measuri; ng 2.6 x 2.2 cm. There are no suspicious osseous lesions.; Impression:; 1. No evidence of pulmonary embolism.; 2. Small bilateral pleural effusions with lower lobe infiltrates, greater on the right than the left.; These have increased in severity since the prior study.; 3. Scattered emphysematous changes, most severe in the right lower lobe.; 4. Ill-defined low attenuation lesions in the posterior right lobe of the liver. If there is further; clinical concern, ultrasound could be performed.; ; Outcome: 19:59 Decision to Hospitalize by Provider. ke 21:58 Discharge Assessment: Patient awake, alert and oriented x 3. No cognitive and/or kmg1 functional deficits noted. Patient verbalized understanding of disposition instructions. Patient awake and alert. patient administered narcotics - no. The following High Risk Discharge criteria are identified: None. Admitted to Med/Surg accompanied by tech, via stretcher, with oxygen. Condition: stable. CT Study completed. Property :Personal belongings accompany Pt. 22:13 Patient left the ED. cz Signatures: Dispatcher [employer] EDMS Aide Bravo, Catering Director Unit deg Nancy Vyas, RN RN kmg1 Kemar Lozano, RN RN cz Monique Langston, [place] Reg gb [place],Efrain Oliver, MIDDLE SCHOOL SCIENCE TEACHER MIDDLE SCHOOL SCIENCE TEACHER Hemanth Jimenez jc3 Diana Woods,RN RN lisa3 Oumar Alvarez rn1 Smauel Hearn jp5 Odette Alarcon,RN RN kc3 Al Graham, JHON BAKER OPERATOR AUTOMATIC jm Chart Complete [place]
[2016-06-27] MEDS: VANCOMYCIN HCL 1,000 MG, VIAL MATE ADAPTER 1 EACH in D5W 250 ML IV SCH ×3 (01:54→17:32)
[2016-06-27 02:02] VITALS: O2SAT 98
[2016-06-27] MEDS: IPRATROPIUM 0.02% SOLN 0.5MG/2.5 ML NEB NEB SCH ×4 (02:14→20:00)
[2016-06-27] MEDS: LEVALBUTEROL 1.25 MG/0.5 ML CONCENTRATE NEB NEB SCH ×4 (02:14→20:00)
[2016-06-27] MEDS: methylPREDNISolone INJ 125 MG/2 ML VIAL (J2930) IV SCH ×2 (05:32→14:29)
[2016-06-27 06:00] VITALS: BP 125/77
[2016-06-27 07:02] LABS: BASO % 0.1 % (0.0-1.0); EOS % 0.3 % (0.0-3.0); LARGE UNSTAINED CELL # 0.2 K/mm3 (0.0-0.4); LYMPH # 0.9 K/mm3 (1.5-4.5); LYMPH % 4.7 % (24.0-44.0); MEAN CORPUSCULAR HEMOGLOBIN 28.4 pg (27.0-33.0); MEAN CORPUSCULAR HGB CONC 31.3 g/dl (32.0-36.5); MEAN CORPUSCULAR VOLUME 90.8 fl (80.0-96.0); MONO # 0.5 K/mm3 (0.0-0.8); MONO % 3.2 % (0.0-5.0); NEUTROPHILS # 14.4 K/mm3 (1.8-7.7); NEUTROPHILS % 90.7 % (36.0-66.0); PLATELET COUNT, AUTOMATED 287 k/mm3 (150-450); RED CELL DISTRIBUTION WIDTH 18.2 % (11.5-14.5); WHITE BLOOD COUNT 15.8 K/mm3 (4.0-10.0)
[2016-06-27 07:26] LABS: ANION GAP 8 MEQ/L (8-16); BLOOD UREA NITROGEN 12 MG/DL (7-18); CALCIUM LEVEL 8.4 MG/DL (8.8-10.2); CARBON DIOXIDE LEVEL 34 MEQ/L (21-32); CHLORIDE LEVEL 92 MEQ/L (98-107); CREATININE FOR GFR 0.87 MG/DL (0.70-1.30); GLOMERULAR FILTRATION RATE > 60.0 (>49); GLUCOSE, FASTING 340 MG/DL (80-110); SODIUM LEVEL 134 MEQ/L (136-145)
[2016-06-27] MEDS: TIOTROPIUM INHALER/CAPSULE (SPIRIVA) INH SCH (07:30)
[2016-06-27] MEDS: SYMBICORT 160/4.5MCG INHALER 6GM INH SCH ×2 (07:30→20:06)
[2016-06-27] MEDS: HumaLOG INSULIN (NovoLOG) PER UNIT SC SCH ×4 (08:46→20:29)
[2016-06-27] MEDS: MULTIVITAMINS/MINERALS THERAP 1 TAB PO SCH ×2 (08:46→20:24)
[2016-06-27] MEDS: PANTOPRAZOLE 40MG TAB (PROTONIX) PO SCH (08:46)
[2016-06-27] MEDS: OSELTAMIVIR PHOSPHATE 75 MG CAP (TAMIFLU) PO SCH ×2 (08:47→20:24)
[2016-06-27] MEDS: ENALAPRIL MALEATE 10 MG TAB PO SCH (08:47)
[2016-06-27] MEDS: VITAMIN D 1,000 INTERNATIONAL UNITS TABLET PO SCH (08:48)
[2016-06-27] MEDS: FUROSEMIDE 80 MG TAB PO SCH (08:48)
[2016-06-27] MEDS: guaiFENesin ER 600 MG TAB PO SCH ×2 (08:48→20:24)
[2016-06-27] MEDS: MAGNESIUM OXIDE 400 MG TAB (MAG-OX) PO SCH ×2 (08:48→20:24)
[2016-06-27] MEDS: PRAVASTATIN 20 MG TAB PO SCH (08:48)
[2016-06-27] MEDS: LORATADINE 10 MG TAB PO SCH (08:48)
[2016-06-27] MEDS: CYANOCOBALAMIN 500 MCG TAB PO SCH (08:48)
[2016-06-27 09:23] LABS: INR 5.25
[2016-06-27] MEDS: ALPRAZolam 0.25 MG TAB PO PRN ×3 (10:00→20:48)
--- NOTE | 2016-06-27 10:50 | IPNPDOC ---
Text Note Date of Service The patient was seen on 06/27/16. NOTE Subjective: Patient is a 60-year-old male with acute influenza, COPD exacerbation, known pancreatic cancer seen for hospitalist follow up. Patient says that he is breathing a little bit better. He says that he has been able to go without oxygen this morning. He denies any fevers, chills, sweats, chest pain/pressure, abdominal pain, nausea, vomiting, diarrhea, constipation. Objective: Vital signs: Temperature 96.0, MAXIMUM TEMPERATURE 98.2, pulse 87, respiratory rate 18, blood pressure 125/77, pulse ox 100% on 2 L nasal cannula Gen.: Patient awake, alert and oriented, verbal and able to answer questions appropriately. Patient does not appear to be in any acute distress Heart: Regular rate and rhythm, normal S1-S2. No murmurs, rubs, clicks or gallops Lungs: Clear to auscultation with bilaterally diminished but improved airflow Abdomen: Active bowel sounds, soft, nontender, no masses to palpation Extremities: Bilaterally lower extremity swelling without pitting edema Laboratory data: CBC: White blood cells 15.8, hemoglobin and hematocrit 10.8/34.7, platelets 287 Chemistry: Sodium 134, potassium 4.0, chloride 92, carbon dioxide 34, BUN 12, creatinine 0.87, glucose 340, calcium 8.4 C-reactive protein 0.65 INR 5.25 Microbiology: Blood cultures 2 no growth after 48 hours Assessment: Patient is a 60-year-old male with acute influenza, COPD exacerbation. Patient' s breathing continues to improve on a daily basis. Plan: #1: Acute influenza: Continue Tamiflu 75 mg by mouth twice a day #2: COPD exacerbation: Patient with continued improvement of breathing. Methylprednisolone dose decreased to 60 mg IV every 12 hours. Continue azithromycin 500 mg IV every 24 hours, Symbicort 160/4.5 mcg 2 puffs inhalation twice a day, ceftriaxone 1 g IV every 24 hours, guaifenesin 600 mg by mouth twice a day, Atrovent 0.5 mg inhalation every 6 hours, Xopenex 1.25 mg inhalation every 6 hours and every hour when necessary, Spiriva 1 inhalation daily, vancomycin 1 g IV every 8 hours #3: Supratherapeutic INR: Most likely secondary to alteration of gut luis secondary to azithromycin, ceftriaxone: p.m. dose of Coumadin will be held #4: Adenocarcinoma of head of pancreas: Patient currently under care of Dr. Jimenez from oncology. Patient will follow-up with Dr. Jimenez as outpatient #5: Atrial fibrillation: Elevated INR today, p.m. dose of warfarin will be held #6: Type 2 diabetes mellitus: Stable, continue current medications #7: Hypertension: Stable, continue diltiazem 120 mg by mouth twice a day, Lasix 80 mg by mouth every morning and 40 mg every evening #8: Hyperlipidemia: Stable, continue pravastatin 20 mg by mouth daily #9: History of alcoholic liver disease: No more than 3 g of Tylenol per day #10: Obstructive sleep apnea: Stable, continue nightly CPAP #11: DVT prophylaxis: Currently on warfarin for atrial fibrillation (warfarin being held today due to elevated INR) My preceptor for this patient encounter was physically present in the building during the encounter and was fully available. As needed, all aspects of the patient interview, examination, medical decision making process, and medical care plan development were reviewed and approved by the preceptor. Preceptor is aware and concurs with the plan as stated in the body of this note and will attest to such by his/her cosignature VSVern, I+O VSVern, I+O Laboratory Tests 06/27/16 06:27 Calcium Level 8.4 L, Red Blood Count 3.82 L, Mean Corpuscular Volume 90.8, Mean Corpuscular Hemoglobin 28.4, Mean Corpuscular Hemoglobin Concent 31.3 L, Red Cell Distribution Width 18.2 H, Neutrophils (%) (Auto) 90.7 H, Lymphocytes (%) ( Auto) 4.7 L, Monocytes (%) (Auto) 3.2, Eosinophils (%) (Auto) 0.3, Basophils (% ) (Auto) 0.1, Neutrophils # (Auto) 14.4 H, Lymphocytes # (Auto) 0.9 L, Monocytes # (Auto) 0.5, Eosinophils # (Auto) 0.0, Basophils # (Auto) 0.0 Vital Signs Date Time Temp Pulse Resp B/P Pulse Ox O2 Delivery O2 Flow Rate FiO2 06/27/16 08:47 125/77 06/27/16 08:47 87 06/27/16 06:00 96.0 18 100 Nasal Cannula 2.0 I&O- Last 24 Hours up to 6 AM 06/27/16 06:00 Intake Total 2130 ml Balance 2130 ml GME ATTESTATION GME ATTESTATION My preceptor for this patient encounter was physically present in the building during the encounter and was fully available. As needed, all aspects of the patient interview, examination, medical decision making process, and medical care plan development were reviewed and approved by the preceptor. Preceptor is aware and concurs with the plan as stated in the body of this note and will attest to such by his/her cosignature. ATTENDING NOTE I have both independently examined this patient as well as reviewed documentation. I have discussed the findings in detail with the author the findings and plan of treatment as documented in the note. I will continue to follow the patient and offer further guidance to the patients care as necessary. PUJA TAYLOR DO Jun 27, 2016 10:50 JOSE PAL DO Jul 03, 2016 14:40
[2016-06-27] MEDS: SODIUM CHLORIDE NASAL 0.65% SPRAY BTL (OCEAN) SCH ×3 (12:52→20:28)
[2016-06-27 14:00] VITALS: BP 125/60
[2016-06-27] MEDS: FUROSEMIDE 40 MG TAB PO SCH (17:31)
[2016-06-27] MEDS: AZITHROMYCIN INJ 500 MG, VIAL MATE ADAPTER 1 EACH in D5W 250 ML IV SCH (20:26)
[2016-06-27] MEDS: cefTRIAXone SOD 1 GM in D5W MINI-BAG PLUS 50 ML IV SCH (20:29)
[2016-06-27 22:00] VITALS: BP 143/71
[2016-06-28 00:06] LABS: ORGANISM ID Not indicated. (.); SPECIMEN SOURCE Urine (.)
[2016-06-28] MEDS: VANCOMYCIN HCL 1,000 MG, VIAL MATE ADAPTER 1 EACH in D5W 250 ML IV SCH ×3 (01:44→17:15)
[2016-06-28] MEDS: methylPREDNISolone INJ 125 MG/2 ML VIAL (J2930) IV SCH ×2 (01:44→15:07)
[2016-06-28] MEDS: ALPRAZolam 0.25 MG TAB PO PRN (01:45)
[2016-06-28] MEDS: IPRATROPIUM 0.02% SOLN 0.5MG/2.5 ML NEB NEB SCH ×4 (02:00→20:00)
[2016-06-28] MEDS: LEVALBUTEROL 1.25 MG/0.5 ML CONCENTRATE NEB NEB SCH ×4 (02:00→20:00)
[2016-06-28 06:00] VITALS: BP 139/73
[2016-06-28 06:54] LABS: BASO % 0.1 % (0.0-1.0); LARGE UNSTAINED CELL # 0.1 K/mm3 (0.0-0.4); LARGE UNSTAINED CELL % 0.7 % (0.0-4.0); LYMPH # 0.7 K/mm3 (1.5-4.5); LYMPH % 4.2 % (24.0-44.0); MEAN CORPUSCULAR HEMOGLOBIN 26.9 pg (27.0-33.0); MEAN CORPUSCULAR HGB CONC 29.9 g/dl (32.0-36.5); MEAN CORPUSCULAR VOLUME 90.1 fl (80.0-96.0); MONO # 0.5 K/mm3 (0.0-0.8); MONO % 3.2 % (0.0-5.0); NEUTROPHILS # 14.4 K/mm3 (1.8-7.7); NEUTROPHILS % 91.8 % (36.0-66.0); PLATELET COUNT, AUTOMATED 243 k/mm3 (150-450); RED CELL DISTRIBUTION WIDTH 17.6 % (11.5-14.5); WHITE BLOOD COUNT 15.7 K/mm3 (4.0-10.0)
[2016-06-28 06:58] LABS: ANION GAP 6 MEQ/L (8-16); BLOOD UREA NITROGEN 14 MG/DL (7-18); CALCIUM LEVEL 8.5 MG/DL (8.8-10.2); CARBON DIOXIDE LEVEL 37 MEQ/L (21-32); CHLORIDE LEVEL 93 MEQ/L (98-107); CREATININE FOR GFR 0.93 MG/DL (0.70-1.30); GLOMERULAR FILTRATION RATE > 60.0 (>49); GLUCOSE, FASTING 389 MG/DL (80-110); POTASSIUM SERUM 4.4 MEQ/L (3.5-5.1); SODIUM LEVEL 136 MEQ/L (136-145)
[2016-06-28 06:59] LABS: INR 4.43
[2016-06-28] MEDS: SYMBICORT 160/4.5MCG INHALER 6GM INH SCH ×2 (07:44→20:16)
[2016-06-28] MEDS: TIOTROPIUM INHALER/CAPSULE (SPIRIVA) INH SCH (07:44)
[2016-06-28] MEDS: HumaLOG INSULIN (NovoLOG) PER UNIT SC SCH ×4 (08:16→20:59)
[2016-06-28] MEDS: VITAMIN D 1,000 INTERNATIONAL UNITS TABLET PO SCH (08:16)
[2016-06-28] MEDS: SODIUM CHLORIDE NASAL 0.65% SPRAY BTL (OCEAN) SCH ×3 (08:16→20:59)
[2016-06-28] MEDS: PANTOPRAZOLE 40MG TAB (PROTONIX) PO SCH (08:17)
[2016-06-28] MEDS: ENALAPRIL MALEATE 10 MG TAB PO SCH (08:17)
[2016-06-28] MEDS: OSELTAMIVIR PHOSPHATE 75 MG CAP (TAMIFLU) PO SCH ×2 (08:17→20:58)
[2016-06-28] MEDS: MULTIVITAMINS/MINERALS THERAP 1 TAB PO SCH ×2 (08:17→20:58)
[2016-06-28] MEDS: PRAVASTATIN 20 MG TAB PO SCH (08:18)
[2016-06-28] MEDS: FUROSEMIDE 80 MG TAB PO SCH (08:18)
[2016-06-28] MEDS: MAGNESIUM OXIDE 400 MG TAB (MAG-OX) PO SCH ×2 (08:18→20:58)
[2016-06-28] MEDS: guaiFENesin ER 600 MG TAB PO SCH ×2 (08:18→20:58)
[2016-06-28] MEDS: LORATADINE 10 MG TAB PO SCH (08:18)
[2016-06-28] MEDS: CYANOCOBALAMIN 500 MCG TAB PO SCH (08:19)
[2016-06-28] MEDS ORDERED: ALPRAZolam 0.25 MG TAB PO PRN (12:45)
[2016-06-28 14:00] VITALS: BP 125/61
--- NOTE | 2016-06-28 15:02 | IPNPDOC ---
Text Note Date of Service The patient was seen on 06/28/16. NOTE Subjective: Patient is a 60-year-old male with acute influenza, COPD exacerbation, known pancreatic cancer seen for hospitalist follow-up. Patient says that he is breathing a little bit better today. He denies any fevers, chills, sweats, chest pain/pressure, abdominal pain, nausea, vomiting, diarrhea, constipation. Objective: Vital signs: Temperature 96.7, MAXIMUM TEMPERATURE 98.0, pulse 97, respiratory rate 18, blood pressure 139/73, pulse ox 93% on 2 L nasal cannula Gen.: Patient awake, alert and oriented, verbal and able to answer questions appropriately. Patient does not appear to be in any acute distress Heart: Regular rate and rhythm, normal S1-S2. No murmurs, rubs, clicks or gallops Lungs: Clear to auscultation bilaterally. No wheezes, rales or rhonchi Abdomen: Active bowel sounds, soft, nontender, no masses to palpation Extremities: Bilateral lower extremity swelling without pitting edema Laboratory data: CBC: White blood cells 15.7, hemoglobin and hematocrit 10.7/35.8, platelets 243 Chemistry: Sodium 136, potassium 4.4, chloride 93, carbon index at 37, BUN 14, creatinine 0.93, glucose 389, calcium 8.5 INR 4.43 Microbiology: Blood cultures 2 no growth after 72 hours Assessment: Patient is a 60-year-old male with acute influenza, COPD exacerbation. He reports his breathing is continuing to improve. Plan: #1: Acute influenza: Continue Tamiflu 75 mg by mouth twice a day #2: COPD exacerbation: Patient with continued improvement of breathing. Methylprednisolone dose will continue at 60 mg IV every 12 hours today, dose will be decreased to 40 mg IV every 12 hours starting tomorrow. Continue azithromycin 500 mg IV every 24 hours, Symbicort 160/4.5 mcg 2 puffs inhalation twice a day, ceftriaxone 1 g IV every 24 hours, guaifenesin 600 mg by mouth twice a day, Atrovent 0.5 mg inhalation every 6 hours, Xopenex 1.25 mg inhalation every 6 hours and every hour when necessary, Spiriva 1 inhalation daily, vancomycin 1 g IV every 8 hours #3: Supratherapeutic INR: Most likely secondary to alteration of gut luis secondary to azithromycin, ceftriaxone: p.m. dose of Coumadin will be held #4: Adenocarcinoma of head of pancreas: Patient currently under care of Dr. Jimenez from oncology. Patient will follow-up with Dr. Jimenez as outpatient #5: Atrial fibrillation: Elevated INR today, p.m. dose of warfarin will be held #6: Type 2 diabetes mellitus: Stable, continue current medications #7: Hypertension: Stable, continue diltiazem 120 mg by mouth twice a day, Lasix 80 mg by mouth every morning and 40 mg every evening #8: Hyperlipidemia: Stable, continue pravastatin 20 mg by mouth daily #9: History of alcoholic liver disease: No more than 3 g of Tylenol per day #10: Obstructive sleep apnea: Stable, continue nightly CPAP #11: DVT prophylaxis: Currently on warfarin for atrial fibrillation (warfarin being held today due to elevated INR) My preceptor for this patient encounter was physically present in the building during the encounter and was fully available. As needed, all aspects of the patient interview, examination, medical decision making process, and medical care plan development were reviewed and approved by the preceptor. Preceptor is aware and concurs with the plan as stated in the body of this note and will attest to such by his/her cosignature VS,Vern, I+O VS, Vern, I+O Laboratory Tests 06/28/16 06:21 Calcium Level 8.5 L, Red Blood Count 3.97 L, Mean Corpuscular Volume 90.1, Mean Corpuscular Hemoglobin 26.9 L, Mean Corpuscular Hemoglobin Concent 29.9 L, Red Cell Distribution Width 17.6 H, Neutrophils (%) (Auto) 91.8 H, Lymphocytes (%) ( Auto) 4.2 L, Monocytes (%) (Auto) 3.2, Eosinophils (%) (Auto) 0.0, Basophils (% ) (Auto) 0.1, Neutrophils # (Auto) 14.4 H, Lymphocytes # (Auto) 0.7 L, Monocytes # (Auto) 0.5, Eosinophils # (Auto) 0.0, Basophils # (Auto) 0.0 Vital Signs Date Time Temp Pulse Resp B/P Pulse Ox O2 Delivery O2 Flow Rate FiO2 06/28/16 08:30 Nasal Cannula 2.0 06/28/16 08:17 139/73 06/28/16 06:00 96.7 97 18 93 I&O- Last 24 Hours up to 6 AM 06/28/16 06:00 Intake Total 3345 ml Balance 3345 ml PUJA TAYLOR DO Jun 28, 2016 15:02
[2016-06-28] MEDS: WARFARIN SOD 7.5 MG TAB PO SCH (17:00)
[2016-06-28] MEDS: FUROSEMIDE 40 MG TAB PO SCH (17:14)
[2016-06-28] MEDS: AZITHROMYCIN INJ 500 MG, VIAL MATE ADAPTER 1 EACH in D5W 250 ML IV SCH (20:58)
[2016-06-28 22:00] VITALS: BP 134/76
[2016-06-28] MEDS: cefTRIAXone SOD 1 GM in D5W MINI-BAG PLUS 50 ML IV SCH (22:49)
[2016-06-29] MEDS: VANCOMYCIN HCL 1,000 MG, VIAL MATE ADAPTER 1 EACH in D5W 250 ML IV SCH ×3 (00:51→18:29)
[2016-06-29] MEDS: methylPREDNISolone INJ 40 MG/1 ML VIAL (J2920) IV SCH ×2 (02:06→14:12)
[2016-06-29] MEDS: IPRATROPIUM 0.02% SOLN 0.5MG/2.5 ML NEB NEB SCH ×4 (02:42→20:00)
[2016-06-29] MEDS: LEVALBUTEROL 1.25 MG/0.5 ML CONCENTRATE NEB NEB SCH ×4 (02:42→20:00)
[2016-06-29 06:00] VITALS: BP 162/87
[2016-06-29 06:57] LABS: INR 3.04
[2016-06-29 07:05] LABS: BASO % 0.2 % (0.0-1.0); EOS % 0.4 % (0.0-3.0); LARGE UNSTAINED CELL # 0.1 K/mm3 (0.0-0.4); LARGE UNSTAINED CELL % 0.5 % (0.0-4.0); LYMPH # 0.5 K/mm3 (1.5-4.5); MEAN CORPUSCULAR HEMOGLOBIN 27.6 pg (27.0-33.0); MEAN CORPUSCULAR HGB CONC 30.8 g/dl (32.0-36.5); MEAN CORPUSCULAR VOLUME 89.5 fl (80.0-96.0); MONO # 0.5 K/mm3 (0.0-0.8); MONO % 3.7 % (0.0-5.0); NEUTROPHILS # 11.1 K/mm3 (1.8-7.7); NEUTROPHILS % 91.3 % (36.0-66.0); PLATELET COUNT, AUTOMATED 233 k/mm3 (150-450); RED CELL DISTRIBUTION WIDTH 17.8 % (11.5-14.5); WHITE BLOOD COUNT 12.1 K/mm3 (4.0-10.0)
[2016-06-29 07:10] LABS: ANION GAP 3 MEQ/L (8-16); BLOOD UREA NITROGEN 16 MG/DL (7-18); CALCIUM LEVEL 8.5 MG/DL (8.8-10.2); CARBON DIOXIDE LEVEL 40 MEQ/L (21-32); CHLORIDE LEVEL 94 MEQ/L (98-107); CREATININE FOR GFR 0.75 MG/DL (0.70-1.30); GLOMERULAR FILTRATION RATE > 60.0 (>49); GLUCOSE, FASTING 337 MG/DL (80-110); POTASSIUM SERUM 3.9 MEQ/L (3.5-5.1); SODIUM LEVEL 137 MEQ/L (136-145)
[2016-06-29] MEDS: TIOTROPIUM INHALER/CAPSULE (SPIRIVA) INH SCH (07:15)
[2016-06-29] MEDS: SYMBICORT 160/4.5MCG INHALER 6GM INH SCH ×2 (07:16→20:05)
[2016-06-29] MEDS: HumaLOG INSULIN (NovoLOG) PER UNIT SC SCH ×4 (08:14→21:04)
[2016-06-29] MEDS: ENALAPRIL MALEATE 10 MG TAB PO SCH (08:15)
[2016-06-29] MEDS: CYANOCOBALAMIN 500 MCG TAB PO SCH (08:15)
[2016-06-29] MEDS: guaiFENesin ER 600 MG TAB PO SCH ×2 (08:15→21:05)
[2016-06-29] MEDS: MULTIVITAMINS/MINERALS THERAP 1 TAB PO SCH ×2 (08:15→21:06)
[2016-06-29] MEDS: LORATADINE 10 MG TAB PO SCH (08:16)
[2016-06-29] MEDS: PANTOPRAZOLE 40MG TAB (PROTONIX) PO SCH (08:16)
[2016-06-29] MEDS: FUROSEMIDE 80 MG TAB PO SCH (08:16)
[2016-06-29] MEDS: MAGNESIUM OXIDE 400 MG TAB (MAG-OX) PO SCH ×2 (08:16→21:06)
[2016-06-29] MEDS: OSELTAMIVIR PHOSPHATE 75 MG CAP (TAMIFLU) PO SCH ×2 (08:16→21:06)
[2016-06-29] MEDS: PRAVASTATIN 20 MG TAB PO SCH (08:17)
[2016-06-29] MEDS: SODIUM CHLORIDE NASAL 0.65% SPRAY BTL (OCEAN) SCH ×3 (08:17→21:08)
[2016-06-29] MEDS: VITAMIN D 1,000 INTERNATIONAL UNITS TABLET PO SCH (09:21)
[2016-06-29 11:48] LABS: ABG BASE EXCESS 10.1 (-2.0-2.0); ABG HCO3 35.3 MEQ/L (22.0-26.0); ABG PARTIAL PRESSURE CO2 49.9 mmHg (35.0-45.0); ABG PARTIAL PRESSURE O2 83.7 mmHg (75.0-100.0); ABG STANDARD HCO3 33.9 MEQ/L (22.0-26.0); ABG TOTAL CO2 36.8 MEQ/L (23.0-31.0); ABG pH (ARTERIAL) 7.467 UNITS (7.350-7.450)
--- NOTE | 2016-06-29 13:03 | REP ---
CHEST, TWO VIEWS: HISTORY: Shortness of breath. COMPARISON: 06/24/2016 Increased density is present in the right lower lobe consistent with an infiltrate, unchanged compared to the previous study. Increased density is present in the left lower lobe, consistent with atelectasis or infiltrate. Scarring is present in the right upper lobe. Small bilateral pleural effusions are present. The heart is upper limits of normal in size. The pulmonary vasculature is normal in appearance. The bony structure is intact. An [place] catheter is present in the superior vena cava. IMPRESSION: 1. Right lower lobe infiltrate, unchanged compared to the previous study. 2. Left lower lobe atelectasis or infiltrate. 3. Small bilateral pleural effusions. Signed by Landon Farah MD 06/29/2016 01:05 P
[2016-06-29 14:00] VITALS: BP 142/80
--- NOTE | 2016-06-29 18:07 | IPN ---
DATE: 06/29/2016 SUBJECTIVE: Patient seen and examined in the room today. Patient continues to require increased oxygen support. At baseline, patient does not need 2 liters nasal cannula. Per family member, patient has been more drowsy. Symptoms still persist after the decreased frequency of the Xanax. OBJECTIVE: VITAL SIGNS: Temperature is 96.7, pulse is 93, respirations 18, blood pressure is 162/87, pulse oximetry 97% with continuous positive airway pressure (CPAP). GENERAL: Fatigued. No sign of acute distress. Alert and oriented times three. Decreased alertness. HEENT: Normocephalic, atraumatic. Extraocular motor grossly intact. CARDIOVASCULAR: Positive S1, S2, regular rate. LUNGS: Positive crackles located at the right mid lobes. ABDOMEN: Soft, nontender, nondistended. Bowel sounds present. EXTREMITIES: Mild bilateral pitting edema. No sign of cyanosis. LABORATORY DATA: WBC is 12.1, hemoglobin 10.9, hematocrit 35.3, platelet count 233. Sodium is 136, potassium 3.9, chloride is 94, carbon dioxide 40, BUN 16, creatinine 0.75, GFR is greater than 60, fasting glucose is 337, calcium is 8.5. ASSESSMENT AND PLAN: 1. Acute influenza, on Tamiflu. Continue supportive care. Patient still requires increased oxygen support. 2. Chronic obstructive pulmonary disease (COPD) exacerbation secondary to active influenza and pneumonia. Patient is on tapering dose of steroids. Patient has improvement of the wheezes. Patient is on azithromycin and Rocephin. 3. Right lower lobe infiltrate. Due to concern for influenza and complicated pneumonia, patient is on vancomycin in addition to Rocephin and azithromycin. 4. Supratherapeutic INR, possibly secondary to concurrent antibiotics. Patient's Coumadin has been on hold. 5. Adenocarcinoma of the head of the pancreas. Patient was following with Dr. Jimenez. 6. Atrial fibrillation. Supratherapeutic INR. Warfarin on hold, however, in the satisfactory range. 7. Type 2 diabetes. Continue sliding scale. 8. Hypertension. On diltiazem and Lasix. 9. Hyperlipidemia. On pravastatin. 10. History of alcoholic liver disease. 11. Obstructive sleep apnea (ISA), on continuous positive airway pressure (CPAP). 12. Deep vein thrombosis (DVT) prophylaxis. Patient currently has supratherapeutic INR from warfarin.
[2016-06-29] MEDS: FUROSEMIDE 40 MG TAB PO SCH (18:29)
--- NOTE | 2016-06-29 18:51 | REP ---
RIGHT UPPER QUADRANT ULTRASOUND: Real-time sonographic evaluation of the right upper quadrant is performed. The patient has had a prior cholecystectomy. There is no intrahepatic or extrahepatic biliary dilatation, the common bile duct measures 5 mm in diameter. There is mild pneumobilia as seen on prior CT scans. The liver demonstrates heterogeneous echotexture with two cysts in the right lobe measuring 1.9 x 2.2 x 2.1 cm and 1.8 x 1.3 x 2.3 cm. The pancreas could not be visualized. The right kidney demonstrates no hydronephrosis with normal size at 13.3 cm in length. No free fluid is seen in the right upper quadrant. IMPRESSION: Heterogeneous echotexture of the liver with two liver cysts noted as seen on recent CT scan of 06/24/2016. The patient is status post cholecystectomy. No free fluid. Signed by Blaze Meier MD 06/29/2016 08:38 P
[2016-06-29] MEDS: AZITHROMYCIN INJ 500 MG, VIAL MATE ADAPTER 1 EACH in D5W 250 ML IV SCH (21:07)
[2016-06-29 22:00] VITALS: BP 152/75
[2016-06-29] MEDS: cefTRIAXone SOD 1 GM in D5W MINI-BAG PLUS 50 ML IV SCH (22:59)
[2016-06-30] MEDS: VANCOMYCIN HCL 1,000 MG, VIAL MATE ADAPTER 1 EACH in D5W 250 ML IV SCH ×3 (01:08→17:26)
[2016-06-30] MEDS: methylPREDNISolone INJ 40 MG/1 ML VIAL (J2920) IV SCH ×2 (01:08→13:41)
[2016-06-30] MEDS: LEVALBUTEROL 1.25 MG/0.5 ML CONCENTRATE NEB NEB SCH ×4 (01:20→20:00)
[2016-06-30] MEDS: IPRATROPIUM 0.02% SOLN 0.5MG/2.5 ML NEB NEB SCH ×4 (01:20→20:00)
[2016-06-30 06:00] VITALS: BP 148/73
[2016-06-30 06:59] LABS: MEAN CORPUSCULAR HEMOGLOBIN 28.3 pg (27.0-33.0); MEAN CORPUSCULAR HGB CONC 31.3 g/dl (32.0-36.5); MEAN CORPUSCULAR VOLUME 90.6 fl (80.0-96.0); RED CELL DISTRIBUTION WIDTH 18.3 % (11.5-14.5); WHITE BLOOD COUNT 13.2 K/mm3 (4.0-10.0)
[2016-06-30 07:04] LABS: ANION GAP 6 MEQ/L (8-16); BLOOD UREA NITROGEN 17 MG/DL (7-18); CALCIUM LEVEL 8.3 MG/DL (8.8-10.2); CARBON DIOXIDE LEVEL 36 MEQ/L (21-32); CHLORIDE LEVEL 93 MEQ/L (98-107); CREATININE FOR GFR 0.77 MG/DL (0.70-1.30); GLOMERULAR FILTRATION RATE > 60.0 (>49); GLUCOSE, FASTING 379 MG/DL (80-110); POTASSIUM SERUM 4.2 MEQ/L (3.5-5.1); SODIUM LEVEL 135 MEQ/L (136-145)
[2016-06-30] MEDS: MULTIVITAMINS/MINERALS THERAP 1 TAB PO SCH ×2 (08:37→21:12)
[2016-06-30] MEDS: HumaLOG INSULIN (NovoLOG) PER UNIT SC SCH ×4 (08:37→21:14)
[2016-06-30] MEDS: MAGNESIUM OXIDE 400 MG TAB (MAG-OX) PO SCH ×2 (08:37→21:12)
[2016-06-30] MEDS: LORATADINE 10 MG TAB PO SCH (08:37)
[2016-06-30] MEDS: CYANOCOBALAMIN 500 MCG TAB PO SCH (08:38)
[2016-06-30] MEDS: PANTOPRAZOLE 40MG TAB (PROTONIX) PO SCH (08:38)
[2016-06-30] MEDS: guaiFENesin ER 600 MG TAB PO SCH ×2 (08:38→21:12)
[2016-06-30] MEDS: FUROSEMIDE 80 MG TAB PO SCH (08:38)
[2016-06-30] MEDS: VITAMIN D 1,000 INTERNATIONAL UNITS TABLET PO SCH (08:38)
[2016-06-30] MEDS: ENALAPRIL MALEATE 10 MG TAB PO SCH (08:39)
[2016-06-30] MEDS: PRAVASTATIN 20 MG TAB PO SCH (08:39)
[2016-06-30] MEDS: SODIUM CHLORIDE NASAL 0.65% SPRAY BTL (OCEAN) SCH ×3 (08:41→21:15)
[2016-06-30] MEDS: TIOTROPIUM INHALER/CAPSULE (SPIRIVA) INH SCH (09:43)
[2016-06-30] MEDS: SYMBICORT 160/4.5MCG INHALER 6GM INH SCH ×2 (09:44→20:36)
[2016-06-30 13:22] LABS: INR 1.48
--- NOTE | 2016-06-30 13:26 | IPNPDOC ---
Text Note Date of Service The patient was seen on 06/30/16. NOTE Subjective: Patient is a 60-year-old male with influenza, COPD exacerbation, pneumonia seen for hospitalist follow-up. Patient reports that he is tired today but says his breathing is a little bit better. He denies any fevers, chills, sweats, chest pain/pressure, abdominal pain, nausea, vomiting, diarrhea, constipation. Objective: Vital signs: Temperature 97.1, MAXIMUM TEMPERATURE 98.6, pulse 89, respiratory rate 20, blood pressure 148/73, pulse ox 95% on 2 L nasal cannula Gen.: Patient awake, alert and oriented, verbal and able to answer questions appropriately. Patient does not appear to be in any acute distress Heart: Regular rate and rhythm, normal S1-S2. No murmurs, rubs, clicks or gallops Lungs: Bilaterally diminished breath sounds, unable to appreciate any wheezes, rales or rhonchi Abdomen: Active bowel sounds, soft, nontender, no masses to palpation Extremities: Bilateral lower extremity swelling without pitting edema Laboratory data: CBC: White blood cells 13.2, hemoglobin and hematocrit 10.7/34.2, platelets 221 Chemistry: Sodium 135, potassium 4.2, chloride 93, carbon dioxide 36, BUN 17, creatinine 0.77, glucose 379, calcium 8.3 C-reactive protein <0.30 Microbiology: Blood culture 2 no growth after 5 days Imaging: Chest x-ray: Right lower lobe infiltrate, unchanged from previous study. Left lower lobe atelectasis or infiltrate. Small bilateral pleural effusions Abdominal ultrasound: Heterogeneous echotexture of the liver with two liver cysts noted as seen on recent CT scan of 06/24/2016. The patient is status post cholecystectomy. No free fluid. Assessment: Patient is a 60-year-old male with acute influenza, COPD exacerbation, pneumonia. He reports his breathing is continuing to improve. Plan: #1: Acute influenza: Patient has completed 5 days of Tamiflu, Tamiflu stopped. Continue to monitor patient #2: COPD exacerbation: Patient with reported continued improvement of breathing. Methylprednisolone dose will continue at 40 mg IV every 12 hours today. Continue Symbicort 160/4.5 mcg 2 puffs inhalation twice a day, Atrovent 0.5 mg inhalation every 6 hours, Xopenex 1.25 mg inhalation every 6 hours and every hour when necessary, Spiriva 1 inhalation daily #3: Community-acquired pneumonia: High probability for staph pneumonia secondary to acute influenza: Continue azithromycin 500 mg IV every 24 hours, ceftriaxone 1 g IV every 24 hours, guaifenesin 600 mg by mouth twice a day, vancomycin 1 g IV every 8 hours #4: Supratherapeutic INR: Most likely secondary to alteration of gut luis secondary to azithromycin, ceftriaxone: Repeat INR ordered for today, possible restart of Coumadin depending on INR #5: Adenocarcinoma of head of pancreas: Patient currently under care of Dr. Jimenez from oncology. Patient will follow-up with Dr. Jimenez as outpatient #6: Atrial fibrillation: Repeat INR ordered for today, possible restart of Coumadin depending on INR #7: Type 2 diabetes mellitus: Stable, continue current medications #8: Hypertension: Stable, continue diltiazem 120 mg by mouth twice a day, Lasix 80 mg by mouth every morning and 40 mg every evening #9: Hyperlipidemia: Stable, continue pravastatin 20 mg by mouth daily #10: History of alcoholic liver disease: No more than 3 g of Tylenol per day #11: Obstructive sleep apnea: Stable, continue nightly CPAP #12: DVT prophylaxis: Repeat INR ordered for today, possible restart of Coumadin depending on INR My preceptor for this patient encounter was physically present in the building during the encounter and was fully available. As needed, all aspects of the patient interview, examination, medical decision making process, and medical care plan development were reviewed and approved by the preceptor. Preceptor is aware and concurs with the plan as stated in the body of this note and will attest to such by his/her cosignature Vern LILLY, I+O VSVern, I+O Laboratory Tests 06/30/16 06:12 Calcium Level 8.3 L, Red Blood Count 3.77 L, Mean Corpuscular Volume 90.6, Mean Corpuscular Hemoglobin 28.3, Mean Corpuscular Hemoglobin Concent 31.3 L, Red Cell Distribution Width 18.3 H Vital Signs Date Time Temp Pulse Resp B/P Pulse Ox O2 Delivery O2 Flow Rate FiO2 06/30/16 09:00 Nasal Cannula 2.0 06/30/16 08:40 89 148/73 06/30/16 06:00 97.1 20 95 I&O- Last 24 Hours up to 6 AM 06/30/16 06:00 Intake Total 1990 ml Balance 1990 ml PUJA TAYLOR DO Jun 30, 2016 13:26
[2016-06-30 14:00] VITALS: BP 133/71
[2016-06-30] MEDS: FUROSEMIDE 40 MG TAB PO SCH (17:28)
[2016-06-30] MEDS: WARFARIN SOD 7.5 MG TAB PO SCH (19:20)
[2016-06-30] MEDS: AZITHROMYCIN INJ 500 MG, VIAL MATE ADAPTER 1 EACH in D5W 250 ML IV SCH (19:55)
[2016-06-30] MEDS: cefTRIAXone SOD 1 GM in D5W MINI-BAG PLUS 50 ML IV SCH (21:15)
[2016-06-30 22:00] VITALS: BP 137/72
[2016-07-01] MEDS: VANCOMYCIN HCL 1,000 MG, VIAL MATE ADAPTER 1 EACH in D5W 250 ML IV SCH ×2 (01:00→09:07)
[2016-07-01] MEDS: LEVALBUTEROL 1.25 MG/0.5 ML CONCENTRATE NEB NEB SCH ×4 (01:08→20:00)
[2016-07-01] MEDS: IPRATROPIUM 0.02% SOLN 0.5MG/2.5 ML NEB NEB SCH ×4 (01:08→20:00)
[2016-07-01] MEDS: methylPREDNISolone INJ 40 MG/1 ML VIAL (J2920) IV SCH (02:02)
[2016-07-01 06:00] VITALS: BP 157/62
[2016-07-01] MEDS: TIOTROPIUM INHALER/CAPSULE (SPIRIVA) INH SCH (07:33)
[2016-07-01] MEDS: SYMBICORT 160/4.5MCG INHALER 6GM INH SCH ×2 (07:35→20:04)
[2016-07-01] MEDS ORDERED: WARFARIN SOD 5 MG TAB PO ONE (08:00)
[2016-07-01 08:03] LABS: MEAN CORPUSCULAR HEMOGLOBIN 28.5 pg (27.0-33.0); MEAN CORPUSCULAR HGB CONC 31.9 g/dl (32.0-36.5); MEAN CORPUSCULAR VOLUME 89.5 fl (80.0-96.0); RED CELL DISTRIBUTION WIDTH 18.6 % (11.5-14.5); WHITE BLOOD COUNT 15.8 K/mm3 (4.0-10.0)
[2016-07-01 08:06] LABS: INR 1.39
[2016-07-01 08:20] LABS: ANION GAP 8 MEQ/L (8-16); BLOOD UREA NITROGEN 19 MG/DL (7-18); CALCIUM LEVEL 8.4 MG/DL (8.8-10.2); CARBON DIOXIDE LEVEL 34 MEQ/L (21-32); CHLORIDE LEVEL 92 MEQ/L (98-107); CREATININE FOR GFR 0.85 MG/DL (0.70-1.30); GLOMERULAR FILTRATION RATE > 60.0 (>49); POTASSIUM SERUM 4.5 MEQ/L (3.5-5.1); SODIUM LEVEL 134 MEQ/L (136-145)
[2016-07-01 08:27] LABS: GLUCOSE, FASTING 450 MG/DL (80-110)
[2016-07-01] MEDS: LEVEMIR (INSULIN DETEMIR) 1 UNITS/0.01ML SC SCH ×2 (09:00→20:47)
[2016-07-01] MEDS: HumaLOG INSULIN (NovoLOG) PER UNIT SC SCH ×4 (09:08→20:48)
[2016-07-01] MEDS: MULTIVITAMINS/MINERALS THERAP 1 TAB PO SCH ×2 (09:08→20:46)
[2016-07-01] MEDS: LORATADINE 10 MG TAB PO SCH (09:08)
[2016-07-01] MEDS: VITAMIN D 1,000 INTERNATIONAL UNITS TABLET PO SCH (09:08)
[2016-07-01] MEDS: PANTOPRAZOLE 40MG TAB (PROTONIX) PO SCH (09:08)
[2016-07-01] MEDS: CYANOCOBALAMIN 500 MCG TAB PO SCH (09:08)
[2016-07-01] MEDS: guaiFENesin ER 600 MG TAB PO SCH ×2 (09:09→20:46)
[2016-07-01] MEDS: ENALAPRIL MALEATE 10 MG TAB PO SCH (09:09)
[2016-07-01] MEDS: PRAVASTATIN 20 MG TAB PO SCH (09:09)
[2016-07-01] MEDS: FUROSEMIDE 80 MG TAB PO SCH (09:09)
[2016-07-01] MEDS: MAGNESIUM OXIDE 400 MG TAB (MAG-OX) PO SCH ×2 (09:09→20:46)
[2016-07-01] MEDS: SODIUM CHLORIDE NASAL 0.65% SPRAY BTL (OCEAN) SCH ×3 (09:10→20:48)
[2016-07-01 14:00] VITALS: BP 135/80
[2016-07-01] MEDS: predniSONE 20 MG TAB PO SCH ×2 (14:38→20:45)
[2016-07-01] MEDS: LevoFLOXacin 750 MG TABLET PO SCH (14:39)
--- NOTE | 2016-07-01 15:44 | IPN ---
DATE: 07/01/2016 SUBJECTIVE: Patient is seen and examined in the room today. Patient continues to have fatigue, increased oxygen requirements, still has labored breathing even if patient just is sitting still near the bedside. No overnight events reported. OBJECTIVE: VITAL SIGNS: Temperature 96.9, pulse 93, respirations 18, blood pressure 157/62, pulse oxygen 97% in room air. GENERAL: Fatigued, mild distress from labored breathing, alert and oriented times three. HEENT: Normocephalic, atraumatic. Extraocular motors grossly intact. CARDIOVASCULAR: Positive S1, S2, regular rate. LUNGS: Diminished breath sounds bilaterally, some crackles right middle lobe. ABDOMEN: Soft, nontender, nondistended, bowel sounds present. EXTREMITIES: Bilateral lower extremity swelling, no edema. LABORATORY DATA: WBC 15.8, hemoglobin 11.5, hematocrit 36.1, platelet count 249. Sodium 134, potassium 4.5, chloride 92, carbon dioxide 34, BUN 19, creatinine 0.85, GFR greater than 60, fasting glucose 450, calcium 8.4. ASSESSMENT AND PLAN: 1. Acute respiratory failure secondary to acute influenza and right lung pneumonia. Patient has baseline chronic obstructive pulmonary disease (COPD) and obstructive sleep apnea (ISA). Patient already has a prolonged course of recovery. Will continue tapering patient's steroids. Patient continues having increased oxygen requirement. Patient will get ambulatory pulse oximetry to see if patient will quality for daytime oxygen use. 2. Acute influenza. Patient had one course of Tamiflu. 3. Right-sided pneumonia. Patient was on azithromycin and Rocephin, was switched to Levaquin which is an oral dose. Patient's vancomycin will also be discontinued. Oral vancomycin was initially started to prevent influenza related hospital-acquired pneumonia. 4. Atrial fibrillation. Patient has been on warfarin. Due to the supratherapeutic INR patient's warfarin was on hold. Currently patient has stopped therapeutic INR. Warfarin was started yesterday. Will give another additional boost of warfarin today. Will check INR daily. 5. Adenocarcinoma of head of pancreas. Patient follows with Dr. Carmen Jimenez. 6. Type 2 diabetes. Patient on sliding scale. 7. Hypertension. Patient is on diltiazem and diuretic. 8. Dyslipidemia, on pravastatin. 9. History of alcoholic liver disease. 10. Obstructive sleep apnea (ISA). On continuous positive airway pressure (CPAP). 11. Deep venous thrombosis (DVT) prophylaxis. Patient is on warfarin.
[2016-07-01] MEDS: WARFARIN SOD 7.5 MG TAB PO SCH (17:30)
[2016-07-01] MEDS: FUROSEMIDE 40 MG TAB PO SCH (17:30)
[2016-07-01 22:00] VITALS: BP 139/74
[2016-07-02] MEDS: IPRATROPIUM 0.02% SOLN 0.5MG/2.5 ML NEB NEB SCH ×2 (00:17→13:50)
[2016-07-02] MEDS: LEVALBUTEROL 1.25 MG/0.5 ML CONCENTRATE NEB NEB SCH ×2 (00:17→13:50)
[2016-07-02] MEDS: LevoFLOXacin 750 MG TABLET PO SCH (05:47)
[2016-07-02 06:00] VITALS: BP 139/86
[2016-07-02] MEDS: SYMBICORT 160/4.5MCG INHALER 6GM INH SCH (06:35)
[2016-07-02] MEDS: TIOTROPIUM INHALER/CAPSULE (SPIRIVA) INH SCH (06:35)
[2016-07-02 06:50] LABS: BASO % 0.2 % (0.0-1.0); EOS % 0.1 % (0.0-3.0); LARGE UNSTAINED CELL # 0.1 K/mm3 (0.0-0.4); LARGE UNSTAINED CELL % 0.7 % (0.0-4.0); LYMPH # 0.8 K/mm3 (1.5-4.5); LYMPH % 3.9 % (24.0-44.0); MEAN CORPUSCULAR HEMOGLOBIN 28.7 pg (27.0-33.0); MEAN CORPUSCULAR HGB CONC 31.7 g/dl (32.0-36.5); MEAN CORPUSCULAR VOLUME 90.7 fl (80.0-96.0); MONO # 0.8 K/mm3 (0.0-0.8); MONO % 4.3 % (0.0-5.0); NEUTROPHILS # 15.9 K/mm3 (1.8-7.7); NEUTROPHILS % 90.8 % (36.0-66.0); PLATELET COUNT, AUTOMATED 245 k/mm3 (150-450); RED CELL DISTRIBUTION WIDTH 18.5 % (11.5-14.5); WHITE BLOOD COUNT 17.5 K/mm3 (4.0-10.0)
[2016-07-02 07:02] LABS: ANION GAP 6 MEQ/L (8-16); BLOOD UREA NITROGEN 15 MG/DL (7-18); CALCIUM LEVEL 8.8 MG/DL (8.8-10.2); CARBON DIOXIDE LEVEL 36 MEQ/L (21-32); CHLORIDE LEVEL 93 MEQ/L (98-107); CREATININE FOR GFR 0.77 MG/DL (0.70-1.30); GLOMERULAR FILTRATION RATE > 60.0 (>49); GLUCOSE, FASTING 394 MG/DL (80-110); POTASSIUM SERUM 4.2 MEQ/L (3.5-5.1); SODIUM LEVEL 135 MEQ/L (136-145)
[2016-07-02 07:22] LABS: INR 2.19
[2016-07-02] MEDS: CYANOCOBALAMIN 500 MCG TAB PO SCH (07:53)
[2016-07-02] MEDS: HumaLOG INSULIN (NovoLOG) PER UNIT SC SCH ×2 (07:53→13:05)
[2016-07-02] MEDS: VITAMIN D 1,000 INTERNATIONAL UNITS TABLET PO SCH (07:54)
[2016-07-02] MEDS: predniSONE 20 MG TAB PO SCH (07:54)
[2016-07-02] MEDS: MULTIVITAMINS/MINERALS THERAP 1 TAB PO SCH (07:54)
[2016-07-02 07:55] VITALS: BP 139/86
[2016-07-02] MEDS: FUROSEMIDE 80 MG TAB PO SCH (07:55)
[2016-07-02] MEDS: ENALAPRIL MALEATE 10 MG TAB PO SCH (07:55)
[2016-07-02] MEDS: PRAVASTATIN 20 MG TAB PO SCH (07:55)
[2016-07-02] MEDS: MAGNESIUM OXIDE 400 MG TAB (MAG-OX) PO SCH (07:55)
[2016-07-02] MEDS: PANTOPRAZOLE 40MG TAB (PROTONIX) PO SCH (07:56)
[2016-07-02] MEDS: guaiFENesin ER 600 MG TAB PO SCH (07:56)
[2016-07-02] MEDS: LORATADINE 10 MG TAB PO SCH (07:56)
[2016-07-02] MEDS: SODIUM CHLORIDE NASAL 0.65% SPRAY BTL (OCEAN) SCH (07:59)
[2016-07-02] MEDS ORDERED: LEVEMIR (INSULIN DETEMIR) 1 UNITS/0.01ML SC SCH (09:00)
[2016-07-02] MEDS ORDERED: PRED20TA PO (12:26)
[2016-07-02 14:00] VITALS: BP 139/81
--- NOTE | 2016-07-02 20:23 | DSES ---
DATE OF ADMISSION: 06/24/2016 DATE OF DISCHARGE: 07/02/2016 PRIMARY CARE PROVIDER: Dr. Galvez CONSULTANTS: None. PROCEDURES: None. COMPLICATIONS: None. ADMISSION/DISCHARGE DIAGNOSES: 1. Acute respiratory failure secondary to acute influenza and right lung pneumonia. 2. Acute influenza. 3. Right-sided community acquired pneumonia. 4. Atrial fibrillation. 5. Adenocarcinoma of the head of the pancreas status post Whipple procedure and chemotherapy. 6. Type 2 diabetes. 7. Hypertension. 8. Dyslipidemia. 9. Obstructive sleep apnea, on continuous positive airway pressure. 10. History of alcohol liver disease. 11. Acute chronic obstructive pulmonary disease exacerbation. 12. Right lower lobe pneumonia in the right middle lobe. HOSPITALIZATION COURSE: The patient is a 60-year-old male who presented to [facility] on 06/24/2016 with acute respiratory failure. During the workup, patient was found positive for influenza. There was also positive finding at the right middle lobe. Patient admitted for community-acquired pneumonia and influenza infection. Patient was started on Rocephin, azithromycin, and Tamiflu. Patient was also started on intravenous (IV) steroids for chronic obstructive pulmonary disease (COPD) exacerbation. With this regimen, patient's respiratory status gradually slowly improved. His hospitalization stay was complicated by medication-induced supratherapeutic INR with multiple medication use. Patient has INR increased to 5.25, and patient's warfarin dose has been under active adjustments. Patient's C-reactive protein was continued to be monitored on a daily basis, and patient continued to show improvement; however, when patient approached his baseline, patient continued to have increased respiratory demand even with minimal exertion. On 0-07/02/2016, patient had an ambulatory pulse oximetry test. Patient continued to have desaturation with ambulation. Then patient is discharged home with portable oxygen order, and patient already finished a course of antibiotics. No more antibiotic will be given, and patient will continue on the steroid taper. Patient instructed to followup with the primary care provider within 1 week. OBJECTIVE: VITAL SIGNS: Temperature is 98.9, pulse is 89, respirations 20, blood pressure 139/81, pulse oximetry 93% in room air. LABORATORY DATA: WBC is 17.5, hemoglobin is 12.2, hematocrit 38.5, platelet count is 245. Sodium is 135, potassium 4.2, chloride 93, carbon dioxide 36, BUN is 15, creatinine is 0.77, GFR greater than 60, fasting glucose is 394. Calcium is 8.8, C-reactive protein is less than 0.3. BNP is 68.4. ABG shows pH of 7.467, pCO2 is 49.9, pO2 is 83.7, HCO3 is 35.3. Microbiology: Blood cultures negative after 5 days times two. Sample collected on 06/24/2016. Respiratory virus panel obtained on 06/25/2016 is positive for influenza A H3. IMAGING STUDIES: Chest x-ray on 06/24/2016 shows right lower lobe opacity appears slightly more prominent and dense than the previous examination. CT angiogram of the chest on 06/24/2016 showed no evidence of pulmonary embolism (PE). Small bilateral pleural effusion with lower lobe infiltrate, greater than on the right than the left. Scattered emphysematous change, but most severe in the right lower lobe. Ill-defined low-attenuated lesion at the posterior right lobe of the liver. A chest x-ray on 06/29/2016 showed right lower lobe infiltrate. Left lower lobe atelectasis/infiltrate. Small bilateral pleural effusion. Abdominal ultrasound 06/29/2016 showed heterogenous echotexture of the liver with two liver cysts. DISCHARGE MEDICATIONS: - prednisone on tapering dose - albuterol 2.5 mg inhalation every 4 hours as needed - albuterol/ipratropium inhalation every 4 hours as needed - Symbicort two puffs inhalation twice a day - vitamin D 1000 units by mouth every morning - vitamin B12 at 2000 mcg by mouth every morning - diltiazem 120 mg by mouth twice a day - enalapril 20 mg by mouth every morning - Lasix 80 mg by mouth every morning - Lasix 40 mg by mouth every evening - magnesium oxide 400 mg by mouth twice a day - metformin 1000 mg by mouth twice a day - multivitamin one tablet by mouth twice a day - pravastatin 20 mg by mouth every morning - Spiriva inhalation every morning - warfarin 7.5 mg by mouth six times weekly, 5 mg by mouth on Saturday DISCHARGE CONDITION: Stable. DISCHARGE INSTRUCTIONS: Discontinue line. Discharge home. Activity as tolerated. Continue to use ambulatory oxygen to maintain oxygen support. Patient should have a repeat pulmonary respiratory status evaluated by the primary care provider. Diet: Consistent-carbohydrate diet as tolerated. Patient should followup with the primary care provider for INR monitoring. DISCHARGE TIME: Greater than 30 minutes.
[2016-07-03] MEDS ORDERED: WARFARIN SOD 5 MG TAB PO SCH (17:00)
== END 2016-07-02 16:40 | disposition home or self-care (01) | DRG 139 ==
LOC: M ED 17:39 → M ED INP 19:59 → M MSPAV 22:14 → M PCU 06-25 03:52 → M MS5PR 06-25 19:03
PROVIDERS: ADMIT General Practice; ATTEND Internal Medicine
DX: J11.08 Influenza due to unidentified influenza virus with specified pneumonia (principal); J96.00 Acute respiratory failure, unspecified whether with hypoxia or hypercapnia; K70.30 Alcoholic cirrhosis of liver without ascites; I48.91 Unspecified atrial fibrillation; J44.1 Chronic obstructive pulmonary disease with (acute) exacerbation; E11.9 Type 2 diabetes mellitus without complications; I10 Essential (primary) hypertension; E78.5 Hyperlipidemia, unspecified; G47.33 Obstructive sleep apnea (adult) (pediatric); Z79.899 Other long term (current) drug therapy; Z79.01 Long term (current) use of anticoagulants; Z85.07 Personal history of malignant neoplasm of pancreas

== ENCOUNTER → 2016-07-11 | Outpatient (CLI) | payer OTHER ==
[~2016-07-11] MED LIST changes: +GASTROGRAFIN SOLUTION 30ML (Q9963) As Ordered ONE; +IPRASOL4 INH; +ISOVUE-370 76% 100ML VIAL (Q9967) As Ordered ONE; +PRAV20TA2 PO; +PRED20TA PO; +SPIR1CAP INH; +SYMB16INH INH; +VITA10002 PO; +VITA100066 PO; +VITMTA PO
--- NOTE | 2016-07-12 05:47 | REP ---
Clinical: History of pancreatic cancer for reevaluation. Technique: Axial contrast enhanced images from the thoracic inlet to the upper abdomen using 100 ml Isovue 370 intravenous contrast material with coronal and sagittal re-formations. Comparison: 06/24/2016, 11/11/2015. Findings: Chronic stable changes are again identified including predominately bibasilar scarring and emphysematous changes as well as perihilar and predominant lower lobe bronchiectasis. A chronic area of atelectasis is suggested in the right lower lobe with associated pleural reaction and is essentially unchanged compared to 11/11/2015. New scattered ill-defined nodules/infiltrates are identified primarily involving the left lower lobe and to a a somewhat lesser extent the right middle lobe and right lower lobe. Areas of density very in size measuring up to roughly 14 mm (left lower lobe image 47). Mild left hilar adenopathy is unchanged compared to 06/24/2016. Mediastinum demonstrates atherosclerotic changes to the thoracic aorta and coronary arteries. Heart and pericardium appear stable. The no axillary adenopathy. Surrounding musculoskeletal structures demonstrate age-related changes. Impression: 1. Chronic changes similar to prior examinations including presumed chronic atelectasis in the right lower lobe stable compared to 11/11/2015. 2. New scattered ill-defined nodular densities measuring roughly up to 14 mm throughout the left lower lobe, right middle lobe, right lower lobe and to a lesser extent upper lobes. Findings are nonspecific and differential diagnosis includes acute multifocal pneumonia / pneumonitis and metastatic disease given the patient's history of pancreatic carcinoma. Signed by Eduardo Mariano MD 07/12/2016 05:39 A
--- NOTE | 2016-07-12 06:09 | REP ---
Clinical: History of pancreatic cancer for reevaluation. Comparison: 11/11/2015. Technique: Axial contrast enhanced images from the lung bases to the pubic symphysis using oral and 100 ml Isovue 370 intravenous contrast material with precontrast and delayed images of the abdomen as well as coronal and sagittal re-formations. Findings: Lung bases demonstrate COPD/emphysematous changes as well as scattered ill-defined nodular infiltrates and chronic right lower lobe atelectasis. Findings are concerning for multifocal pneumonia / pneumonitis versus metastatic disease. Liver is stable and again demonstrates a mild of pneumobilia as well as to posterior right lobe cysts measuring up to 1.9 cm maximal diameter. Spleen and adjacent inferior splenule are unchanged. Bilateral at adrenal glands and kidneys are grossly unremarkable incidental note is made of a 1 mm nonobstructing left renal calculus. The patient appears to be status post Whipple procedure. There is a ventral / periumbilical hernia which contains nonobstructed loops of small bowel. Colonic diverticula noted. No acute bowel obstruction or inflammatory process otherwise identified. Pelvis demonstrates normal bladder and age appropriate prostate/seminal vesicles. Scattered retroperitoneal and bilateral inguinal lymph nodes are identified measuring up to approximately 17 mm and are similar to prior examination. No ascites. No free air. No L obvious new intra-abdominal/pelvic mass lesion appreciated. Vascular structures demonstrate atherosclerotic changes without aneurysm. Skeletal structures demonstrate degenerative changes without focal osseous abnormality. Impression: 1. Lung bases demonstrate scattered ill-defined nodules and right lower lobe atelectasis. Differential diagnosis includes acute multifocal pneumonia / pneumonitis and metastatic disease. 2. Abdominopelvic findings remain relatively stable including to hepatic cysts, 1 mm nonobstructing left intrarenal calculus, retroperitoneal and bilateral inguinal lymph nodes up to 17 mm. 3. New periumbilical/ventral hernia containing nonobstructed loops of small bowel. 4. No ascites, increased abdominal adenopathy or obvious new mass lesion. Signed by Eduardo Mariano MD 07/12/2016 06:00 A
== END ==
LOC: M RAD 11:41
PROVIDERS: ATTEND Internal Medicine Medical Oncology
DX: R91.8 Other nonspecific abnormal finding of lung field (principal); R93.5 Abnormal findings on diagnostic imaging of other abdominal regions, including retroperitoneum

== ENCOUNTER → 2016-07-13 | Outpatient (REF) | payer OTHER ==
[~2016-07-13] MED LIST changes: -GASTROGRAFIN SOLUTION 30ML (Q9963) As Ordered ONE; -ISOVUE-370 76% 100ML VIAL (Q9967) As Ordered ONE
== END ==
LOC: M LAB REF 12:41
PROVIDERS: ATTEND Internal Medicine Medical Oncology
DX: C25.9 Malignant neoplasm of pancreas, unspecified (principal)

== ENCOUNTER → 2016-08-24 | Outpatient (REF) | payer OTHER | LOC: M LAB REF 13:12 | PROVIDERS: ATTEND Internal Medicine Medical Oncology | DX: C25.9 Malignant neoplasm of pancreas, unspecified (principal) ==

== ENCOUNTER → 2016-09-03 | Outpatient (REF) | payer OTHER | LOC: M LAB REF 10:13 | PROVIDERS: ATTEND Podiatrist | DX: E11.621 Type 2 diabetes mellitus with foot ulcer (principal) ==

== ENCOUNTER → 2016-09-26 | Outpatient (REF) | payer OTHER | LOC: M LAB REF 12:50 | PROVIDERS: ATTEND Internal Medicine Medical Oncology | DX: C25.9 Malignant neoplasm of pancreas, unspecified (principal) ==

== ENCOUNTER → 2016-10-01 | Outpatient (CLI) | payer OTHER ==
[~2016-10-01] MED LIST changes: +GASTROGRAFIN SOLUTION 30ML (Q9963) As Ordered ONE; +ISOVUE-370 76% 100ML VIAL (Q9967) As Ordered ONE
--- NOTE | 2016-10-01 13:38 | REP ---
CT study of the chest with IV contrast: History: Increased tumor markers. The patient gives a history of carcinoma of the pancreas and is status post Whipple procedure. Comparison chest CT study July 11, 2016. CT contrast dose: 100 mL of Isovue [address] findings: There is a right sided [id number]-[id number]-Aqfd catheter with its tip in the superior vena cava. The thoracic aorta enhances homogeneously and is normal in caliber. No filling defect is seen in the pulmonary arterial tree. There are chronic pleuroparenchymal thickening changes in the right hemithorax with areas of atelectasis in the right lower lobe of the lung. The increased markings seen on the July 16, 2016 prior study in the left lower lobe have resolved. Similar improvement is noted on the right. No new pulmonary mass lesion is observed. No pericardial effusion is seen. No hilar or mediastinal mass or adenopathy is observed. No bony destructive lesion is seen. Impression: Chronic pleuroparenchymal changes right hemithorax with somewhat elevated right hemidiaphragm unchanged from comparison CT study July 11, 2016. Lung base markings are improved compared with July 11, 2016 prior study bilaterally. No new lung mass or nodule is seen. Signed by Raymundo Rankin MD 10/01/2016 04:40 P
--- NOTE | 2016-10-01 13:43 | REP ---
CT ABDOMEN PELVIS WITHOUT AND WITH IV CONTRAST: With oral contrast. HISTORY: Increased tumor markers. Pancreatic cancer. Elevated CA19-9. Comparison CT study July 11, 2016. Comparison November 11, [address] is also reviewed. CT contrast dose: 100 mL of Isovue [address] FINDINGS: Preliminary digital golf course architect radiograph shows an unremarkable bowel gas pattern. Pleuroparenchymal changes are again noted in the right base unchanged. There are two posteriorly situated right lobe hepatic cysts again seen. There are three to four tiny subcentimeter low density areas scattered in the right lobe of the liver which are felt to be unchanged from November 16, 2015 and July 16, 2016 prior studies. These are of uncertain etiology. Pneumobilia is again noted post Whipple procedure. No biliary ductal dilation is seen. The remaining body and tail of the pancreas are unremarkable. No adrenal lesion is seen. No renal mass lesion is observed. Spleen is unremarkable. There is no evidence of ascites seen. There are some venous collaterals in the left upper abdomen as before. Stable borderline periaortic lymph nodes are again seen unchanged from November 16, 2015. Vascular calcification is seen. There is a midline ventral hernia transmitting unobstructed loops of small bowel. No larger small bowel mass lesion is observed. No bony destructive lesion is seen. IMPRESSION: Stable abdominal CT findings status post Whipple procedure. Ventral hernia, postop changes, hepatic cysts and stable small low-density liver lesions . Stable lymph nodes. No progressive change is seen. Signed by Raymundo Rankin MD 10/01/2016 04:41 P
== END ==
LOC: M RAD 10:16
PROVIDERS: ATTEND Nurse Practitioner Family
DX: C25.9 Malignant neoplasm of pancreas, unspecified (principal)

== ENCOUNTER → 2016-10-31 | Outpatient (REF) | payer OTHER ==
[~2016-10-31] MED LIST changes: +ALBU17IN2 INH; -FURO1TAB15 PO; +FURO80TA2 PO; +FURO8SOL PO; -GASTROGRAFIN SOLUTION 30ML (Q9963) As Ordered ONE; +IPRASOL4 NEB; -ISOVUE-370 76% 100ML VIAL (Q9967) As Ordered ONE; +MAGN1TAB25 PO; -METF1000 PO; +METF10004 PO; +MULT1TAB10 PO; -PRAV10TA PO; +PRAV10TA4 PO; +TURM500C3 PO; +VITA100067 PO; +VITA500T3 PO; +WARF-21 PO; +areds
== END ==
LOC: M LAB REF 12:33
PROVIDERS: ATTEND Internal Medicine Medical Oncology
DX: C25.9 Malignant neoplasm of pancreas, unspecified (principal)

== ENCOUNTER → 2016-12-05 | Outpatient (CLI) | payer OTHER ==
--- NOTE | 2016-12-05 17:11 | REP ---
Whole body PET CT scan: The patient has a history of pancreatic cancer and Whipple procedure. Comparisons are the whole-body PET scan dated 11/23/[address] of the chest abdomen and pelvis dated 10/01/2016. Scanning is performed from skull base to the upper thighs. Neck and supraclavicular areas: There are no hypermetabolic foci. Chest: There are no hypermetabolic foci. The hypermetabolic focus in the right lower lobe on the comparison study demonstrates no F D G uptake today. The standard uptake value is 1.30. The pleural thickening in the posterior sulcus of the right lung demonstrates no F D G uptake with a standard uptake value of 1.2. Abdomen, pelvis and upper thighs: There is focal uptake in small bowel loops on the left and the location where there has been small bowel anastomosis, similar to the uptake in this area on the comparison study. The standard uptake value today measures of 9.0. Previously it measured 6.4. There is a large new focus in the hepatic flexure of the colon with the standard uptake value of 8.9 as a change from the prior study. There is a small hypermetabolic focus approximate 1 cm in diameter in the medial segment of the hepatic left lobe with a standard uptake value of 4.14, not present previously. No other hepatic foci are identified. There is an umbilical hernia containing small bowel loops. Previously this contained only omental fat. Impression: There are no hypermetabolic foci in the neck, supraclavicular area or chest. There is a small bowel focus in the location of a small bowel anastomosis. Uptake in this area and was also present previously. There is a new large uptake focus in the splenic flexure of the colon. There is a new small focus in the hepatic left lobe medial segment. There is an umbilical hernia containing small bowel loops. Previously this contain only omental fat. Signed by Blaze Manley MD 12/05/2016 05:03 P
== END ==
LOC: M PLARAD 07:32
PROVIDERS: ATTEND Internal Medicine Medical Oncology
DX: C25.9 Malignant neoplasm of pancreas, unspecified (principal); R93.2 Abnormal findings on diagnostic imaging of liver and biliary tract; R93.3 Abnormal findings on diagnostic imaging of other parts of digestive tract; K42.9 Umbilical hernia without obstruction or gangrene
CPT/HCPCS: 78815; A9552

== ENCOUNTER → 2016-12-10 | Outpatient (REF) | payer OTHER ==
[2016-12-10 11:34] LABS: INR 2.61
== END ==
LOC: M LAB REF 11:17
PROVIDERS: ATTEND Internal Medicine Medical Oncology
DX: C25.9 Malignant neoplasm of pancreas, unspecified (principal)

== ENCOUNTER → 2016-12-20 | Outpatient (CLI) | payer OTHER ==
[~2016-12-20] MED LIST changes: +LIDOCAINE 1% MDV 20ML VIAL As Ordered ONE
--- NOTE | 2016-12-20 16:53 | REP ---
ULTRASOUND GUIDED LIVER BIOPSY: The procedure was performed by RAFY Chavis under the direct supervision of Dr. Meier. The procedure along with its benefits and complications were discussed with the patient prior to the procedure. Informed consent was obtained both verbally and written. The patient was identified in the ultrasound suite and placed in a supine position. Live ultrasound was used to find the target area. This area was marked prepped and draped in the usual sterile fashion. A procedural "time out" was performed to ensure that the correct patient, site, and procedure were being performed. Local infiltrative anesthesia was achieved using 1% Xylocaine. A 19 gauge Temno biopsy device was advanced to the area of concern. Four core biopsy specimens were obtained. These were placed in formalin and sent to the lab for further evaluation. Results pending. The needle was removed, hemostasis was achieved and a soft dressing was applied. Post procedural imaging revealed no immediate complications. The patient tolerated the procedure well and was discharged home after an hour of monitored observation. Reviewed by RAFY Bennett 12/21/2016 08:49 AEdited and Signed by Blaze Meier MD 12/21/2016 09:34 A
== END ==
LOC: M RADPRO 08:00
PROVIDERS: ATTEND Internal Medicine Medical Oncology
DX: C78.7 Secondary malignant neoplasm of liver and intrahepatic bile duct (principal); C25.9 Malignant neoplasm of pancreas, unspecified; Z87.891 Personal history of nicotine dependence; Z79.899 Other long term (current) drug therapy; Z79.52 Long term (current) use of systemic steroids; Z79.01 Long term (current) use of anticoagulants

== ENCOUNTER 2016-12-27 06:40 | Outpatient (CLI) | payer OTHER ==
[~2016-12-27] VITALS: Ht 188 cm; Wt 115.7 kg
[~2016-12-27 06:40] MED LIST changes: -LIDOCAINE 1% MDV 20ML VIAL As Ordered ONE
[2016-12-27] MEDS ORDERED: LR 1,000 ML IV SCH (07:15)
[2016-12-27] MEDS ORDERED: LIDOCAINE 2% INJ 100 MG/5 ML SDV (FOR ANES.) As Ordered ONE (07:55)
[2016-12-27] MEDS ORDERED: PROPOFOL 500 MG/50 ML VIAL As Ordered ONE (07:55)
[2016-12-27] MEDS ORDERED: LEVALBUTEROL 1.25 MG/0.5 ML CONCENTRATE NEB As Ordered ONE (08:20)
--- NOTE | 2016-12-27 08:21 | ROOR ---
Patient Name: Nolberto Bergeron Procedure Date: 12/27/2016 7:43 AM Date of : 1955 Age: 61 Room: [facility] Gender: Male Note Status: Finalized Procedure: Colonoscopy Indications: Abnormal PET scan of the GI tract, Patient had abnormal uptake in the hepatic flexure on PET for followup of pancreatic Cancer Providers: Oumar Limon MD Referring MD: Sandrita Nobles NP, Carmen Jimenez MD Requesting Provider: Medicines: Monitored Anesthesia Care Complications: No immediate complications. Procedure: Pre-Anesthesia Assessment: - Prior to the procedure, a History and Physical was performed, and patient medications and allergies were reviewed. The patient is competent. The risks and benefits of the procedure and the sedation options and risks were discussed with the patient. All questions were answered and informed consent was obtained. Patient identification and proposed procedure were verified by the physician, the nurse and the anesthesiologist in the procedure room. Mental Status Examination: alert and oriented. Airway Examination: normal oropharyngeal airway and neck mobility. CV Examination: regular rate and rhythm. Prophylactic Antibiotics: The patient does not require prophylactic antibiotics. Prior Anticoagulants: The patient has taken no previous anticoagulant or antiplatelet agents. ASA Grade Assessment: III - A patient with severe systemic disease. After reviewing the risks and benefits, the patient was deemed in satisfactory condition to undergo the procedure. The anesthesia plan was to use monitored anesthesia care (MAC). Immediately prior to administration of medications, the patient was re-assessed for adequacy to receive sedatives. The heart rate, respiratory rate, oxygen saturations, blood pressure, adequacy of pulmonary ventilation, and response to care were monitored throughout the procedure. The physical status of the patient was re-assessed after the procedure. The Colonoscope was introduced through the anus and advanced to the cecum, identified by appendiceal orifice and ileocecal valve. The colonoscopy was performed without difficulty. The patient tolerated the procedure well. The quality of the bowel preparation was good. Findings: The perianal and digital rectal examinations were normal. The colon (entire examined portion) appeared normal. Impression: - The entire examined colon is normal. - No specimens collected. Recommendation: - Discharge patient to home. - Resume previous diet. - Continue present medications. - Return to referring physician as previously scheduled. Oumar Limon MD 12/27/2016 8:21:04 AM Number of Addenda: 0 Note Initiated On: 12/27/2016 7:43 AM Estimated Blood Loss: Estimated blood loss: none.
[2016-12-27] MEDS ORDERED: LEVALBUTEROL 1.25 MG/0.5 ML CONCENTRATE NEB NEB ONE (08:30)
[2016-12-27 08:52] VITALS: BP 128/80
== END 2016-12-27 08:45 | disposition home or self-care (01) ==
LOC: M OPP 06:40
PROVIDERS: ATTEND Surgery
DX: R93.3 Abnormal findings on diagnostic imaging of other parts of digestive tract (principal); Z85.07 Personal history of malignant neoplasm of pancreas; I48.91 Unspecified atrial fibrillation; I10 Essential (primary) hypertension; E78.5 Hyperlipidemia, unspecified; E11.9 Type 2 diabetes mellitus without complications; J44.9 Chronic obstructive pulmonary disease, unspecified; G47.30 Sleep apnea, unspecified; Z92.21 Personal history of antineoplastic chemotherapy; Z87.891 Personal history of nicotine dependence; Z79.01 Long term (current) use of anticoagulants; Z79.899 Other long term (current) drug therapy

== ENCOUNTER → 2017-01-07 | Outpatient (REF) | payer OTHER | LOC: M LAB REF 13:02 | PROVIDERS: ATTEND Internal Medicine Medical Oncology | DX: C25.9 Malignant neoplasm of pancreas, unspecified (principal) ==

== ENCOUNTER → 2017-02-04 | Outpatient (REF) | payer OTHER | LOC: M LAB REF 12:19 | PROVIDERS: ATTEND Internal Medicine Medical Oncology | DX: C25.9 Malignant neoplasm of pancreas, unspecified (principal) ==

== ENCOUNTER → 2017-02-04 | Outpatient (CLI) | payer OTHER ==
--- NOTE | 2017-02-04 11:45 | REP ---
Chest x-ray: Two views. History: Question effusion. Comparison study: June 29, 2016. Findings: The lungs are somewhat hyperinflated but free of infiltrate. There is pleural thickening and pleuroparenchymal fibrosis at multiple levels in the right hemithorax unchanged. A right internal jugular Skemhk-S-Lzgy catheter is again seen with its tip in the expected location of the superior vena cava. Borderline heart size is again seen unchanged. No free pleural effusion is seen. Impression: Advanced COPD changes. Chronic pleuroparenchymal fibrotic changes on the right. Kqcstk-R-Giqb catheter. Signed by Raymundo Rankin MD 02/04/2017 01:19 P
== END ==
LOC: M RAD 09:32
PROVIDERS: ATTEND Nurse Practitioner Adult Health
DX: C25.9 Malignant neoplasm of pancreas, unspecified (principal); J44.9 Chronic obstructive pulmonary disease, unspecified; R91.8 Other nonspecific abnormal finding of lung field; Z95.828 Presence of other vascular implants and grafts

== ENCOUNTER → 2017-02-25 | Outpatient (REF) | payer OTHER | LOC: M LAB REF 12:17 | PROVIDERS: ATTEND Internal Medicine Medical Oncology | DX: C25.9 Malignant neoplasm of pancreas, unspecified (principal) ==

== ENCOUNTER → 2017-03-18 | Outpatient (REF) | payer OTHER ==
[2017-03-18 12:34] LABS: INR 3.46
== END ==
LOC: M LAB REF 11:13
PROVIDERS: ATTEND Internal Medicine Medical Oncology
DX: C61 Malignant neoplasm of prostate (principal)

== ENCOUNTER → 2017-03-25 | Outpatient (REF) | payer OTHER | LOC: M LAB REF 12:43 | PROVIDERS: ATTEND Internal Medicine Medical Oncology | DX: C25.9 Malignant neoplasm of pancreas, unspecified (principal) ==

== ENCOUNTER → 2017-03-27 | Outpatient (CLI) | payer OTHER ==
[~2017-03-27] MED LIST changes: +GASTROGRAFIN SOLUTION 30ML (Q9963) As Ordered ONE; +ISOVUE-370 76% 100ML VIAL (Q9967) As Ordered ONE
--- NOTE | 2017-03-28 09:21 | REP ---
Clinical: Pancreatic carcinoma for restaging and follow-up. Technique: Axial contrast enhanced images from the lung bases to the pubic symphysis using oral (per protocol) and 100 ml Isovue 370 intravenous contrast material with precontrast and delayed images of the abdomen as well as coronal and sagittal re-formations. Comparison: 10/01/2016. Findings: Lung bases demonstrate chronic right lower lobe fibroatelectatic changes which remain stable and new areas of ill-defined consolidation in the left lower lobe completely evaluated on chest CT and concerning for underlying metastatic disease. Liver demonstrates two stable cysts in the posterior segment right lobe along with scattered vague hypodensities in the right and left lobe which may be slightly more conspicuous and concerning for active metastatic foci. The patient is status post Whipple procedure and relatively stable mid epigastric lymph nodes and postsurgical changes are appreciated. However, there appears to be a somewhat new area of mildly enhancing soft tissue in the region of the joan hepatis which represents a change from prior examination and while this may reflect a transient dilated biliary duct approaching the site of surgery, recurrent lesion cannot definitively be excluded and warrants followup (images 40 - 44). Mild left para-aortic lymph nodes at the level of the renal hilum may be slightly increased when compared to prior examination. Specifically, a solitary lymph node measuring 1.4 cm previously appeared to measure 1.0 cm. No obvious further increased adenopathy or discrete mass lesion is appreciated. Spleen/splenule, bilateral adrenal glands, and kidneys appear relatively normal / stable. Mild chronic perinephric stranding is again appreciated along with nonobstructing left intrarenal calculi measuring up to 5 mm. The enteric system is without obstruction or acute inflammatory process stable ventral hernia contains multiple loops of nondilated small bowel. Pelvis demonstrates normal bladder and age appropriate prostate/seminal vesicles. No ascites. No free air. Musculoskeletal structures demonstrate age-related degenerative changes without focal osseous abnormality. Impression: 1. New ill-defined small areas of consolidation and nodule in the left lower lung zone. Differential diagnosis includes acute atelectasis/pneumonia as well as metastatic disease given the patient's history. 2. Cannot exclude minimally increased left para-aortic lymph nodes as well as possible mass versus transient dilated bile duct in the region of the joan hepatis at the site of prior surgery (Whipple procedure). Correlation with PET CT and/or follow-up contrast-enhanced CT and 3 months may be warranted. 3. Further chronic changes as described above. Signed by Eduardo Mariano MD 03/28/2017 08:55 A
--- NOTE | 2017-03-28 09:21 | REP ---
Clinical: History of pancreatic carcinoma for restaging and follow-up. Technique: Axial contrast enhanced images from the thoracic inlet to the upper abdomen using 100 ml Isovue 370 intravenous contrast material with coronal and sagittal re-formations. Comparison: 10/01/2016. Findings: Chronic volume loss and pleuroparenchymal changes involving the right hemithorax wall remain stable including areas of chronic presumed a rounded atelectasis along the periphery of the anterobasilar right upper lobe and along the posterior right lower lobe as well as right middle lobe. There is a new 4 mm nodule in the periphery of the left upper lobe (image 37) as well as new 2 mm nodule in the apical left lower lobe (image 32). New areas of ill-defined opacity and small consolidations in the left lower lobe (images 57 - 64; 77 - 83; 83 - 97) including a subpleural nodule density measuring 1.5 cm (image 93). Atherosclerotic changes to the thoracic aorta and coronary arteries noted without aortic aneurysm. Mild cardiomegaly remains stable. No pericardial effusion. No obvious significant mediastinal or hilar adenopathy. Musculoskeletal structures demonstrate stable degenerative changes without focal osseous abnormality. Impression: 1. New findings within the left lung as described above including few small pulmonary nodules and ill-defined consolidations/opacities. While these findings may represent transient elements of atelectasis/pneumonia, metastatic disease cannot be excluded. 3-month follow-up chest CT is recommended. Signed by Eduardo Mariano MD 03/28/2017 08:39 A
== END ==
LOC: M RAD 15:02
PROVIDERS: ATTEND Internal Medicine Medical Oncology
DX: C25.9 Malignant neoplasm of pancreas, unspecified (principal)

== ENCOUNTER → 2017-04-08 | Outpatient (REF) | payer OTHER ==
[~2017-04-08] MED LIST changes: -GASTROGRAFIN SOLUTION 30ML (Q9963) As Ordered ONE; -ISOVUE-370 76% 100ML VIAL (Q9967) As Ordered ONE
== END ==
LOC: M LAB REF 12:33
PROVIDERS: ATTEND Internal Medicine Medical Oncology
DX: C25.9 Malignant neoplasm of pancreas, unspecified (principal)

== ENCOUNTER → 2017-04-23 | Outpatient (REF) | payer OTHER | LOC: M LAB REF 11:36 | PROVIDERS: ATTEND Internal Medicine Medical Oncology | DX: C25.9 Malignant neoplasm of pancreas, unspecified (principal) ==

== ENCOUNTER → 2017-05-13 | Outpatient (REF) | payer OTHER ==
[2017-05-14 11:09] LABS: CA19-9 TUMOR MARKER,CARBOHYDRA 1833.7 U/ML (<35.0)
== END ==
LOC: M LAB REF 12:35
DX: C25.9 Malignant neoplasm of pancreas, unspecified (principal)
CPT/HCPCS: 86301

== ENCOUNTER → 2017-06-10 | Outpatient (REF) | payer OTHER ==
[2017-06-11 13:24] LABS: CA19-9 TUMOR MARKER,CARBOHYDRA 2068.7 U/ML (<35.0)
== END ==
LOC: M LAB REF 10:54
DX: C25.9 Malignant neoplasm of pancreas, unspecified (principal)

== ENCOUNTER → 2017-07-09 | Outpatient (REF) | payer OTHER | LOC: M LAB REF 17:05 | DX: C25.9 Malignant neoplasm of pancreas, unspecified (principal) | CPT/HCPCS: 86301 ==

== ENCOUNTER → 2017-08-02 | Outpatient (REF) | payer OTHER | LOC: M LAB REF 11:48 | DX: N39.0 Urinary tract infection, site not specified (principal) ==

== ENCOUNTER → 2017-08-19 | Outpatient (REF) | payer OTHER ==
[2017-08-20 12:39] LABS: CA19-9 TUMOR MARKER,CARBOHYDRA 14092.9 U/ML (<35.0)
== END ==
LOC: M LAB REF 09:33
DX: C25.9 Malignant neoplasm of pancreas, unspecified (principal); C78.7 Secondary malignant neoplasm of liver and intrahepatic bile duct
CPT/HCPCS: 86301

== ENCOUNTER → 2017-08-27 | Outpatient (CLI) | payer OTHER ==
[~2017-08-27] MED LIST changes: -/AUGM875TA; -/DILT60TAB PO; -/MOXI40TA; -/MOXI40TA PO; -/PANT40TA PO; -/WARF5TA; -/WARF5TA PO; -ACET50TAOT PO; -ACET65TA; -ALBU0.084 IN; -ALBU17IN INH; -ALBU17IN2 INH; -ALBU83IN INH; -ASMANEX INHALER; -ATEN100T PO; -ATEN25TA; -CEPH500T; -CETI5CHW; -COLC0.6T34 PO; -COMBVENT; -COUM10TA; -COUM1TAB17 PO; -COUM7.5T PO; -DILT120T PO; -DUONSOL; -ENAL10TA2; -ENAL20TA; -ENAL20TA PO; -FLON0.05; -FORADIL; -FORMETEROL; -FURO40TA2 PO; -FURO80TA2 PO; -FURO8SOL PO; +GASTROGRAFIN SOLUTION 30ML (Q9963) As Ordered; -GLUC1000; -GLUCTAB PO; -IPRASOL4 INH; -IPRASOL4 NEB; +ISOVUE-370 76% 100ML VIAL (Q9967) As Ordered; -LASI40TA; -LASI40TA PO; -MAGN1TAB25 PO; -MAGN400T5 PO; -MAGO400T PO; -METF10004 PO; -METF500T4; -MUCI600T34 PO; -MUCOMYST; -MULT1TAB10 PO; -MULTTAB4 PO; -OXYC15TA76 PO; -OXYGEN; -PRAV10TA4 PO; -PRAV20TA2 PO; -PRAV40TA2 PO; -PRED10TA2; -PRED10TA2 PO; -PRED20TA PO; -PROV90AE; -SILV40CR TOP; -SILVADENE CREAM; -SITA50TAB PO; -SPIR1CAP INH; -SYMB16INH INH; -SYMB80AE; -SYMB80AE IN; -TENO100T; -THIA100T; -TURM500C3 PO; -VITA10002 PO; -VITA100037 PO; -VITA100066 PO; -VITA100067 PO; -VITA100072 PO; -VITA500T3 PO; -VITMTA PO; -WARF-21 PO; -ZITH500T; -areds
== END ==
LOC: M RAD 11:58
DX: C25.9 Malignant neoplasm of pancreas, unspecified (principal)
CPT/HCPCS: Q9963

== ENCOUNTER → 2017-09-16 | Outpatient (REF) | payer OTHER ==
[2017-09-17 15:15] LABS: CA19-9 TUMOR MARKER,CARBOHYDRA 128184.3 U/ML (<35.0)
== END ==
LOC: M LAB REF 12:52
DX: C25.9 Malignant neoplasm of pancreas, unspecified (principal); C78.7 Secondary malignant neoplasm of liver and intrahepatic bile duct; G62.0 Drug-induced polyneuropathy; T45.1X5A Adverse effect of antineoplastic and immunosuppressive drugs, initial encounter
CPT/HCPCS: 86301

== ENCOUNTER 2017-09-24 11:37 | Observation (INO) | payer OTHER ==
[2017-09-24 12:39] LABS: HEMOGLOBIN 11.4 g/dl (13.5-17.5); MEAN CORPUSCULAR HEMOGLOBIN 30.3 pg (27.0-33.0); MEAN CORPUSCULAR HGB CONC 33.5 g/dl (32.0-36.5); MEAN CORPUSCULAR VOLUME 90.4 fl (80.0-96.0); PLATELET COUNT, AUTOMATED 283 10^3/uL (150-450); RED BLOOD COUNT 3.76 10^6/uL (4.30-6.10); RED CELL DISTRIBUTION WIDTH 19.4 % (11.5-14.5); WHITE BLOOD COUNT 6.6 10^3/uL (4.0-10.0)
[2017-09-24 12:53] LABS: PROTHROMBIN TIME 113.3 SECONDS (12.4-14.5)
[2017-09-24 13:00] LABS: ANION GAP 5 MEQ/L (8-16); BLOOD UREA NITROGEN 9 MG/DL (7-18); CALCIUM LEVEL 8.4 MG/DL (8.8-10.2); CARBON DIOXIDE LEVEL 31 MEQ/L (21-32); CHLORIDE LEVEL 99 MEQ/L (98-107); CREATININE FOR GFR 0.69 MG/DL (0.70-1.30); GLOMERULAR FILTRATION RATE > 60.0 (>49); GLUCOSE, FASTING 240 MG/DL (70-100); INR 13.95; POTASSIUM SERUM 3.6 MEQ/L (3.5-5.1); SODIUM LEVEL 135 MEQ/L (136-145)
[2017-09-24] MEDS ORDERED: ACETAMINOPHEN TAB 650MG DOSE (2X325MG) PO (13:30)
[2017-09-24] MEDS ORDERED: ONDANSETRON 4MG/2ML VIAL (J2405) IV (13:30)
[2017-09-24 14:37] LABS: ABO/RH TYPE MANUAL 1 1
[2017-09-24] MEDS ORDERED: GLUCOSE 4 GM CHEW TABLET PO (15:00)
[2017-09-24] MEDS ORDERED: DEXTROSE 50% 50 ML SYRINGE IV (15:00)
[2017-09-24] MEDS ORDERED: GLUCAGON FOR INJ 1 MG VIAL (J1610) SC (15:00)
[2017-09-24] MEDS ORDERED: ALBUTEROL SULFATE 2.5 MG/0.5 ML INH NEB SOLN INH (15:00)
[2017-09-24 16:36] LABS: BEDSIDE GLUCOSE 133 MG/DL (80-115)
[2017-09-24] MEDS: NYSTATIN 500,000 U/5 ML SUSP UDC SS (16:51)
[2017-09-24] MEDS: oxyCODONE 5MG TAB PO (16:52)
[2017-09-24] MEDS: PHYTONADIONE 10MG/ML INJECTION (J3430) SC (16:53)
[2017-09-24 18:09] LABS: INR 4.45; PROTHROMBIN TIME 44.8 SECONDS (12.4-14.5)
[2017-09-24] MEDS: HumaLOG INSULIN (NovoLOG) PER UNIT SC ×2 (18:12→21:00)
[2017-09-24] MEDS: SYMBICORT 160/4.5MCG INHALER 6GM INH (20:37)
[2017-09-24] MEDS: TIOTROPIUM INHALER/CAPSULE (SPIRIVA) INH (20:37)
[2017-09-24 20:47] LABS: BEDSIDE GLUCOSE 169 MG/DL (80-115)
[2017-09-24] MEDS: PRAVASTATIN 20 MG TAB PO (21:11)
[2017-09-24] MEDS: ALBUTEROL 90 MCG/ACT 8GM HFA INHALER INH (22:11)
[2017-09-25] MEDS: ALBUTEROL 90 MCG/ACT 8GM HFA INHALER INH ×2 (06:04→21:46)
[2017-09-25 06:33] LABS: BASO % 0.5 % (0.0-1.0); EOS # 0.1 10^3/uL (0.0-0.50); EOS % 1.6 % (0.0-3.0); HEMATOCRIT 30.1 % (42.0-52.0); HEMOGLOBIN 9.9 g/dl (13.5-17.5); IMMATURE GRANULOCYTE % 0.7 % (0-3.0); LYMPH # 0.6 10^3/uL (1.5-4.5); LYMPH % 10.2 % (24.0-44.0); MEAN CORPUSCULAR HEMOGLOBIN 30.1 pg (27.0-33.0); MEAN CORPUSCULAR HGB CONC 32.9 g/dl (32.0-36.5); MEAN CORPUSCULAR VOLUME 91.5 fl (80.0-96.0); MONO % 17.4 % (0.0-5.0); NEUTROPHILS # 3.8 10^3/uL (1.8-7.7); NEUTROPHILS % 69.6 % (36.0-66.0); PLATELET COUNT, AUTOMATED 230 10^3/uL (150-450); RED BLOOD COUNT 3.29 10^6/uL (4.30-6.10); RED CELL DISTRIBUTION WIDTH 19.2 % (11.5-14.5); WHITE BLOOD COUNT 5.5 10^3/uL (4.0-10.0)
[2017-09-25 06:40] LABS: INR 2.11; PROTHROMBIN TIME 24.4 SECONDS (12.4-14.5)
[2017-09-25 06:50] LABS: ANION GAP 4 MEQ/L (8-16); BLOOD UREA NITROGEN 9 MG/DL (7-18); CALCIUM LEVEL 8.3 MG/DL (8.8-10.2); CARBON DIOXIDE LEVEL 32 MEQ/L (21-32); CHLORIDE LEVEL 100 MEQ/L (98-107); CREATININE FOR GFR 0.65 MG/DL (0.70-1.30); GLOMERULAR FILTRATION RATE > 60.0 (>49); GLUCOSE, FASTING 149 MG/DL (70-100); POTASSIUM SERUM 3.4 MEQ/L (3.5-5.1); SODIUM LEVEL 136 MEQ/L (136-145)
[2017-09-25] MEDS: LEVEMIR (INSULIN DETEMIR) 1 UNITS/0.01ML SC (08:36)
[2017-09-25] MEDS: HumaLOG INSULIN (NovoLOG) PER UNIT SC ×4 (08:36→21:00)
[2017-09-25] MEDS: POTASSIUM CHLORIDE 10 MEQ SR TABLET PO (08:38)
[2017-09-25] MEDS: FUROSEMIDE 40 MG TAB PO (08:39)
[2017-09-25] MEDS: ENALAPRIL MALEATE 10 MG TAB PO (08:40)
[2017-09-25] MEDS: SYMBICORT 160/4.5MCG INHALER 6GM INH ×2 (08:46→21:00)
[2017-09-25] MEDS ORDERED: ACYCLOVIR 5% OINT 15GM TOP (09:00)
[2017-09-25] MEDS: CEFDINIR 300 MG CAP (OMNICEF) PO ×2 (09:00→21:21)
[2017-09-25 11:49] LABS: BEDSIDE GLUCOSE 173 MG/DL (80-115)
[2017-09-25] MEDS ORDERED: CALCIUM CARBONATE 500 MG CHEW U/D PO (12:15)
[2017-09-25] MEDS: NYSTATIN 500,000 U/5 ML SUSP UDC SS ×3 (13:00→21:21)
[2017-09-25] MEDS: valACYclovir HCL 500 MG TAB PO ×2 (14:00→21:21)
[2017-09-25] MEDS: PRAVASTATIN 20 MG TAB PO (21:22)
[2017-09-25] MEDS: oxyCODONE 5MG TAB PO (21:22)
[2017-09-26] MEDS: valACYclovir HCL 500 MG TAB PO (05:13)
[2017-09-26 05:32] LABS: BASO % 0.6 % (0.0-1.0); EOS # 0.1 10^3/uL (0.0-0.50); EOS % 1.9 % (0.0-3.0); HEMATOCRIT 28.1 % (42.0-52.0); HEMOGLOBIN 9.6 g/dl (13.5-17.5); IMMATURE GRANULOCYTE % 0.9 % (0-3.0); LYMPH # 0.6 10^3/uL (1.5-4.5); MEAN CORPUSCULAR HEMOGLOBIN 30.9 pg (27.0-33.0); MEAN CORPUSCULAR HGB CONC 34.2 g/dl (32.0-36.5); MEAN CORPUSCULAR VOLUME 90.4 fl (80.0-96.0); MONO % 19.1 % (0.0-5.0); NEUTROPHILS # 3.5 10^3/uL (1.8-7.7); NEUTROPHILS % 66.5 % (36.0-66.0); PLATELET COUNT, AUTOMATED 195 10^3/uL (150-450); RED BLOOD COUNT 3.11 10^6/uL (4.30-6.10); RED CELL DISTRIBUTION WIDTH 19.6 % (11.5-14.5); WHITE BLOOD COUNT 5.3 10^3/uL (4.0-10.0)
[2017-09-26 05:45] LABS: INR 1.34; PROTHROMBIN TIME 16.9 SECONDS (12.4-14.5)
[2017-09-26 05:54] LABS: ALBUMIN 2.3 GM/DL (3.2-5.2); ALBUMIN/GLOBULIN RATIO 0.68 (1.00-1.93); ALKALINE PHOSPHATASE 156 U/L (45-117); ALT/SGPT 23 U/L (12-78); ANION GAP 4 MEQ/L (8-16); AST/SGOT 43 U/L (7-37); BILIRUBIN,DIRECT 0.9 MG/DL (0.0-0.2); BILIRUBIN,TOTAL 1.8 MG/DL (0.2-1.0); BLOOD UREA NITROGEN 8 MG/DL (7-18); CARBON DIOXIDE LEVEL 30 MEQ/L (21-32); CHLORIDE LEVEL 100 MEQ/L (98-107); CREATININE FOR GFR 0.55 MG/DL (0.70-1.30); GLOMERULAR FILTRATION RATE > 60.0 (>49); GLUCOSE, FASTING 149 MG/DL (70-100); POTASSIUM SERUM 3.3 MEQ/L (3.5-5.1); SODIUM LEVEL 134 MEQ/L (136-145); TOTAL PROTEIN 5.7 GM/DL (6.4-8.2)
[2017-09-26] MEDS: POTASSIUM CHLORIDE 10 MEQ SR TABLET PO (06:36)
[2017-09-26] MEDS: SYMBICORT 160/4.5MCG INHALER 6GM INH (08:07)
[2017-09-26] MEDS: HumaLOG INSULIN (NovoLOG) PER UNIT SC (08:07)
[2017-09-26] MEDS: FUROSEMIDE 40 MG TAB PO (08:08)
[2017-09-26] MEDS: LEVEMIR (INSULIN DETEMIR) 1 UNITS/0.01ML SC (08:08)
[2017-09-26] MEDS: NYSTATIN 500,000 U/5 ML SUSP UDC SS (08:09)
[2017-09-26] MEDS: CEFDINIR 300 MG CAP (OMNICEF) PO (08:09)
[2017-09-26] MEDS: ENALAPRIL MALEATE 10 MG TAB PO (08:09)
[2017-09-26 10:12] LABS: BEDSIDE GLUCOSE 170 MG/DL (80-115)
[2017-09-26 10:12] LABS: BEDSIDE GLUCOSE 157 MG/DL (80-115)
== END 2017-09-26 10:59 | disposition home or self-care (01) ==
LOC: M ED 11:37 → M ED INP 13:17 → M MSPAV 15:50
DX: R79.1 Abnormal coagulation profile (principal); C25.9 Malignant neoplasm of pancreas, unspecified; B02.9 Zoster without complications; I48.91 Unspecified atrial fibrillation; E11.9 Type 2 diabetes mellitus without complications; E78.5 Hyperlipidemia, unspecified; I10 Essential (primary) hypertension; G47.33 Obstructive sleep apnea (adult) (pediatric); J44.9 Chronic obstructive pulmonary disease, unspecified; C78.7 Secondary malignant neoplasm of liver and intrahepatic bile duct; C78.5 Secondary malignant neoplasm of large intestine and rectum; K70.30 Alcoholic cirrhosis of liver without ascites; Z79.899 Other long term (current) drug therapy; Z79.01 Long term (current) use of anticoagulants; Z79.4 Long term (current) use of insulin; Z87.891 Personal history of nicotine dependence; Z79.51 Long term (current) use of inhaled steroids
CPT/HCPCS: J3430

== ENCOUNTER → 2017-09-24 | Outpatient (REF) | payer OTHER ==
[2017-09-24 10:54] LABS: INR 14.97
== END ==
LOC: M LAB REF 09:15
DX: Z51.81 Encounter for therapeutic drug level monitoring (principal); I48.2 Chronic atrial fibrillation

== ENCOUNTER → 2017-09-27 | Outpatient (CLI) | payer OTHER | LOC: M RAD 07:21 | DX: C25.9 Malignant neoplasm of pancreas, unspecified (principal) ==

== ENCOUNTER → 2017-09-30 | Outpatient (REF) | payer OTHER ==
[2017-10-04 13:45] LABS: CA19-9 TUMOR MARKER,CARBOHYDRA 375321.8 U/ML (<35.0)
== END ==
LOC: M LAB REF 14:14
DX: C25.9 Malignant neoplasm of pancreas, unspecified (principal); C78.7 Secondary malignant neoplasm of liver and intrahepatic bile duct; G62.0 Drug-induced polyneuropathy; T45.1X5A Adverse effect of antineoplastic and immunosuppressive drugs, initial encounter

== ENCOUNTER → 2017-10-08 | Outpatient (REF) | payer OTHER | LOC: M LAB REF 11:03 | DX: C25.9 Malignant neoplasm of pancreas, unspecified (principal); C78.7 Secondary malignant neoplasm of liver and intrahepatic bile duct ==

== ENCOUNTER 2017-10-11 18:13 | Inpatient (IN) | payer OTHER ==
[2017-10-11] MEDS: RIVAROXABAN 20 MG TAB (XARELTO) PO (18:00)
[~2017-10-11 18:13] MED LIST changes: -GASTROGRAFIN SOLUTION 30ML (Q9963) As Ordered; -ISOVUE-370 76% 100ML VIAL (Q9967) As Ordered; +SYMBICORT 160/4.5MCG INHALER 6GM INH
[2017-10-11] MEDS: SYMBICORT 160/4.5MCG INHALER 6GM INH (20:00)
[2017-10-11 20:14] LABS: BASO # 0.1 10^3/uL (0.0-0.2); BASO % 0.5 % (0.0-1.0); EOS # 0.2 10^3/uL (0.0-0.50); HEMATOCRIT 33.7 % (42.0-52.0); HEMOGLOBIN 11.2 g/dl (13.5-17.5); IMMATURE GRANULOCYTE % 0.5 % (0-3.0); LYMPH # 0.8 10^3/uL (1.5-4.5); MEAN CORPUSCULAR HEMOGLOBIN 30.5 pg (27.0-33.0); MEAN CORPUSCULAR HGB CONC 33.2 g/dl (32.0-36.5); MEAN CORPUSCULAR VOLUME 91.8 fl (80.0-96.0); MONO # 1.5 10^3/uL (0.0-0.8); MONO % 13.4 % (0.0-5.0); NEUTROPHILS # 8.5 10^3/uL (1.8-7.7); NEUTROPHILS % 76.6 % (36.0-66.0); PLATELET COUNT, AUTOMATED 116 10^3/uL (150-450); RED BLOOD COUNT 3.67 10^6/uL (4.30-6.10); RED CELL DISTRIBUTION WIDTH 19.6 % (11.5-14.5); WHITE BLOOD COUNT 11.1 10^3/uL (4.0-10.0)
[2017-10-11 20:27] LABS: INR 4.81; PROTHROMBIN TIME 47.7 SECONDS (12.4-14.5)
[2017-10-11 20:28] LABS: PARTIAL THROMBOPLASTIN TIME 82.5 SECONDS (26.8-37.9)
[2017-10-11 20:33] LABS: AMMONIA 44 uMOL/L (<32)
[2017-10-11 20:52] LABS: ALBUMIN 2.1 GM/DL (3.2-5.2); ALKALINE PHOSPHATASE 316 U/L (45-117); ALT/SGPT 24 U/L (12-78); ANION GAP 9 MEQ/L (8-16); BILIRUBIN,TOTAL 3.9 MG/DL (0.2-1.0); BLOOD UREA NITROGEN 23 MG/DL (7-18); CALCIUM LEVEL 8.1 MG/DL (8.8-10.2); CARBON DIOXIDE LEVEL 29 MEQ/L (21-32); CHLORIDE LEVEL 98 MEQ/L (98-107); CREATININE FOR GFR 1.05 MG/DL (0.70-1.30); GLOMERULAR FILTRATION RATE > 60.0 (>49); GLUCOSE, FASTING 131 MG/DL (70-100); LIPASE 43 U/L (73-393); SODIUM LEVEL 136 MEQ/L (136-145); TOTAL PROTEIN 5.6 GM/DL (6.4-8.2)
[2017-10-11] MEDS: NS 1,000 ML IV (21:23)
[2017-10-11] MEDS ORDERED: ONDANSETRON 4MG/2ML VIAL (J2405) IV (21:30)
[2017-10-11 21:31] LABS: AST/SGOT 61 U/L (7-37)
[2017-10-12 06:15] LABS: BASO % 0.4 % (0.0-1.0); EOS # 0.3 10^3/uL (0.0-0.50); EOS % 3.3 % (0.0-3.0); HEMATOCRIT 30.6 % (42.0-52.0); HEMOGLOBIN 10.2 g/dl (13.5-17.5); IMMATURE GRANULOCYTE % 0.4 % (0-3.0); LYMPH # 0.7 10^3/uL (1.5-4.5); LYMPH % 7.4 % (24.0-44.0); MEAN CORPUSCULAR HEMOGLOBIN 30.4 pg (27.0-33.0); MEAN CORPUSCULAR HGB CONC 33.3 g/dl (32.0-36.5); MEAN CORPUSCULAR VOLUME 91.3 fl (80.0-96.0); MONO # 1.4 10^3/uL (0.0-0.8); MONO % 14.1 % (0.0-5.0); NEUTROPHILS # 7.2 10^3/uL (1.8-7.7); NEUTROPHILS % 74.4 % (36.0-66.0); PLATELET COUNT, AUTOMATED 112 10^3/uL (150-450); RED BLOOD COUNT 3.35 10^6/uL (4.30-6.10); RED CELL DISTRIBUTION WIDTH 19.6 % (11.5-14.5); WHITE BLOOD COUNT 9.7 10^3/uL (4.0-10.0)
[2017-10-12 06:32] LABS: ALBUMIN 1.9 GM/DL (3.2-5.2); ALBUMIN/GLOBULIN RATIO 0.58 (1.00-1.93); ALKALINE PHOSPHATASE 281 U/L (45-117); ALT/SGPT 23 U/L (12-78); ANION GAP 8 MEQ/L (8-16); AST/SGOT 54 U/L (7-37); BILIRUBIN,TOTAL 3.6 MG/DL (0.2-1.0); BLOOD UREA NITROGEN 26 MG/DL (7-18); CALCIUM LEVEL 7.7 MG/DL (8.8-10.2); CARBON DIOXIDE LEVEL 29 MEQ/L (21-32); CHLORIDE LEVEL 99 MEQ/L (98-107); CREATININE FOR GFR 0.99 MG/DL (0.70-1.30); GLOMERULAR FILTRATION RATE > 60.0 (>49); GLUCOSE, FASTING 138 MG/DL (70-100); POTASSIUM SERUM 3.8 MEQ/L (3.5-5.1); SODIUM LEVEL 136 MEQ/L (136-145); TOTAL PROTEIN 5.2 GM/DL (6.4-8.2)
[2017-10-12] MEDS: VITAMIN D 1,000 INTERNATIONAL UNITS TABLET PO ×2 (08:35→20:10)
[2017-10-12] MEDS: FUROSEMIDE 40 MG TAB PO (08:35)
[2017-10-12] MEDS: ENALAPRIL MALEATE 10 MG TAB PO (08:35)
[2017-10-12] MEDS: CYANOCOBALAMIN 500 MCG TAB PO (08:36)
[2017-10-12] MEDS: LEVEMIR (INSULIN DETEMIR) 1 UNITS/0.01ML SC (08:36)
[2017-10-12] MEDS: SYMBICORT 160/4.5MCG INHALER 6GM INH ×2 (08:58→20:31)
[2017-10-12] MEDS: MOXIFLOXACIN 400 MG TAB PO (13:05)
[2017-10-12] MEDS: RIVAROXABAN 20 MG TAB (XARELTO) PO (18:00)
[2017-10-12] MEDS: PRAVASTATIN 20 MG TAB PO (20:10)
[2017-10-12] MEDS: TIOTROPIUM INHALER/CAPSULE (SPIRIVA) INH (20:33)
[2017-10-13] MEDS: MOXIFLOXACIN 400 MG TAB PO (05:26)
[2017-10-13 05:37] LABS: BASO # 0.1 10^3/uL (0.0-0.2); BASO % 0.6 % (0.0-1.0); EOS # 0.3 10^3/uL (0.0-0.50); EOS % 3.6 % (0.0-3.0); HEMATOCRIT 31.7 % (42.0-52.0); HEMOGLOBIN 10.4 g/dl (13.5-17.5); IMMATURE GRANULOCYTE % 0.6 % (0-3.0); LYMPH # 0.8 10^3/uL (1.5-4.5); LYMPH % 8.6 % (24.0-44.0); MEAN CORPUSCULAR HEMOGLOBIN 29.5 pg (27.0-33.0); MEAN CORPUSCULAR HGB CONC 32.8 g/dl (32.0-36.5); MEAN CORPUSCULAR VOLUME 90.1 fl (80.0-96.0); MONO # 1.3 10^3/uL (0.0-0.8); NEUTROPHILS # 6.6 10^3/uL (1.8-7.7); NEUTROPHILS % 72.6 % (36.0-66.0); PLATELET COUNT, AUTOMATED 111 10^3/uL (150-450); RED BLOOD COUNT 3.52 10^6/uL (4.30-6.10); RED CELL DISTRIBUTION WIDTH 19.5 % (11.5-14.5); WHITE BLOOD COUNT 9.1 10^3/uL (4.0-10.0)
[2017-10-13 05:57] LABS: ALBUMIN 1.8 GM/DL (3.2-5.2); ALBUMIN/GLOBULIN RATIO 0.58 (1.00-1.93); ALKALINE PHOSPHATASE 322 U/L (45-117); ALT/SGPT 22 U/L (12-78); ANION GAP 8 MEQ/L (8-16); AST/SGOT 62 U/L (7-37); BILIRUBIN,TOTAL 3.9 MG/DL (0.2-1.0); BLOOD UREA NITROGEN 27 MG/DL (7-18); CALCIUM LEVEL 7.4 MG/DL (8.8-10.2); CARBON DIOXIDE LEVEL 27 MEQ/L (21-32); CHLORIDE LEVEL 101 MEQ/L (98-107); CREATININE FOR GFR 0.95 MG/DL (0.70-1.30); GLOMERULAR FILTRATION RATE > 60.0 (>49); GLUCOSE, FASTING 125 MG/DL (70-100); POTASSIUM SERUM 3.4 MEQ/L (3.5-5.1); SODIUM LEVEL 136 MEQ/L (136-145); TOTAL PROTEIN 4.9 GM/DL (6.4-8.2)
[2017-10-13] MEDS: SYMBICORT 160/4.5MCG INHALER 6GM INH ×2 (07:45→20:13)
[2017-10-13] MEDS: FUROSEMIDE 40 MG TAB PO ×2 (08:19→08:21)
[2017-10-13] MEDS: CYANOCOBALAMIN 500 MCG TAB PO (08:20)
[2017-10-13] MEDS: VITAMIN D 1,000 INTERNATIONAL UNITS TABLET PO ×2 (08:20→20:44)
[2017-10-13] MEDS: ENALAPRIL MALEATE 10 MG TAB PO (08:20)
[2017-10-13] MEDS: LEVEMIR (INSULIN DETEMIR) 1 UNITS/0.01ML SC (08:21)
[2017-10-13] MEDS ORDERED: PROHANCE 279.3MG/ML 5ML VIAL (A9576) As Ordered (16:41)
[2017-10-13] MEDS ORDERED: PROHANCE 279.3MG/ML 15ML VIAL (A9576) As Ordered (16:42)
[2017-10-13] MEDS: RIVAROXABAN 20 MG TAB (XARELTO) PO (17:03)
[2017-10-13] MEDS: TIOTROPIUM INHALER/CAPSULE (SPIRIVA) INH (20:13)
[2017-10-13] MEDS: PRAVASTATIN 20 MG TAB PO (20:44)
[2017-10-14] MEDS: MOXIFLOXACIN 400 MG TAB PO (05:13)
[2017-10-14 07:01] LABS: BASO % 0.4 % (0.0-1.0); EOS # 0.3 10^3/uL (0.0-0.50); EOS % 2.8 % (0.0-3.0); HEMATOCRIT 33.7 % (42.0-52.0); HEMOGLOBIN 11.4 g/dl (13.5-17.5); IMMATURE GRANULOCYTE % 0.7 % (0-3.0); LYMPH # 0.7 10^3/uL (1.5-4.5); LYMPH % 7.1 % (24.0-44.0); MEAN CORPUSCULAR HEMOGLOBIN 30.4 pg (27.0-33.0); MEAN CORPUSCULAR HGB CONC 33.8 g/dl (32.0-36.5); MEAN CORPUSCULAR VOLUME 89.9 fl (80.0-96.0); MONO # 1.3 10^3/uL (0.0-0.8); MONO % 14.4 % (0.0-5.0); NEUTROPHILS # 6.8 10^3/uL (1.8-7.7); NEUTROPHILS % 74.6 % (36.0-66.0); PLATELET COUNT, AUTOMATED 101 10^3/uL (150-450); RED BLOOD COUNT 3.75 10^6/uL (4.30-6.10); RED CELL DISTRIBUTION WIDTH 19.6 % (11.5-14.5); WHITE BLOOD COUNT 9.1 10^3/uL (4.0-10.0)
[2017-10-14 07:22] LABS: ALBUMIN 1.8 GM/DL (3.2-5.2); ALBUMIN/GLOBULIN RATIO 0.49 (1.00-1.93); ALKALINE PHOSPHATASE 377 U/L (45-117); ALT/SGPT 28 U/L (12-78); ANION GAP 9 MEQ/L (8-16); AST/SGOT 84 U/L (7-37); BILIRUBIN,TOTAL 4.3 MG/DL (0.2-1.0); BLOOD UREA NITROGEN 35 MG/DL (7-18); CARBON DIOXIDE LEVEL 24 MEQ/L (21-32); CHLORIDE LEVEL 100 MEQ/L (98-107); CREATININE FOR GFR 1.25 MG/DL (0.70-1.30); GLOMERULAR FILTRATION RATE > 60.0 (>49); GLUCOSE, FASTING 142 MG/DL (70-100); POTASSIUM SERUM 3.4 MEQ/L (3.5-5.1); SODIUM LEVEL 133 MEQ/L (136-145); TOTAL PROTEIN 5.5 GM/DL (6.4-8.2)
[2017-10-14] MEDS: SYMBICORT 160/4.5MCG INHALER 6GM INH ×2 (07:34→23:50)
[2017-10-14] MEDS: FUROSEMIDE 40 MG TAB PO (08:21)
[2017-10-14] MEDS: CYANOCOBALAMIN 500 MCG TAB PO (08:21)
[2017-10-14] MEDS: VITAMIN D 1,000 INTERNATIONAL UNITS TABLET PO ×2 (08:21→20:32)
[2017-10-14] MEDS: LEVEMIR (INSULIN DETEMIR) 1 UNITS/0.01ML SC (08:21)
[2017-10-14] MEDS: ENALAPRIL MALEATE 10 MG TAB PO (08:21)
[2017-10-14] MEDS: POTASSIUM CHLORIDE 10 MEQ SR TABLET PO (08:26)
[2017-10-14 10:34] LABS: INR 2.43; PROTHROMBIN TIME 27.4 SECONDS (12.4-14.5)
[2017-10-14] MEDS: PHYTONADIONE 5 MG TAB PO (11:14)
[2017-10-14] MEDS: ALPRAZolam 0.25 MG TAB PO (13:33)
[2017-10-14 15:32] LABS: TYPE AND SCREEN 1
[2017-10-14] MEDS: FUROSEMIDE 100 MG/10 ML VIAL (J1940) IV (17:02)
[2017-10-14 18:16] LABS: INR 1.85; PROTHROMBIN TIME 21.9 SECONDS (12.4-14.5)
[2017-10-14] MEDS: PRAVASTATIN 20 MG TAB PO (20:32)
[2017-10-14] MEDS: TIOTROPIUM INHALER/CAPSULE (SPIRIVA) INH (23:50)
[2017-10-15] MEDS: ALPRAZolam 0.25 MG TAB PO ×2 (02:02→20:50)
[2017-10-15] MEDS: ACETAMINOPHEN TAB 650MG DOSE (2X325MG) PO ×3 (02:04→20:49)
[2017-10-15] MEDS: MOXIFLOXACIN 400 MG TAB PO (05:16)
[2017-10-15 06:48] LABS: BASO # 0.1 10^3/uL (0.0-0.2); BASO % 0.5 % (0.0-1.0); EOS # 0.3 10^3/uL (0.0-0.50); EOS % 2.9 % (0.0-3.0); HEMATOCRIT 32.5 % (42.0-52.0); HEMOGLOBIN 10.8 g/dl (13.5-17.5); IMMATURE GRANULOCYTE % 0.6 % (0-3.0); LYMPH # 0.7 10^3/uL (1.5-4.5); LYMPH % 7.5 % (24.0-44.0); MEAN CORPUSCULAR HEMOGLOBIN 30.1 pg (27.0-33.0); MEAN CORPUSCULAR HGB CONC 33.2 g/dl (32.0-36.5); MEAN CORPUSCULAR VOLUME 90.5 fl (80.0-96.0); MONO # 1.5 10^3/uL (0.0-0.8); MONO % 15.7 % (0.0-5.0); NEUTROPHILS % 72.8 % (36.0-66.0); RED BLOOD COUNT 3.59 10^6/uL (4.30-6.10); RED CELL DISTRIBUTION WIDTH 19.6 % (11.5-14.5); WHITE BLOOD COUNT 9.6 10^3/uL (4.0-10.0)
[2017-10-15 07:08] LABS: ALBUMIN 1.9 GM/DL (3.2-5.2); ALBUMIN/GLOBULIN RATIO 0.49 (1.00-1.93); ALKALINE PHOSPHATASE 409 U/L (45-117); ALT/SGPT 32 U/L (12-78); ANION GAP 10 MEQ/L (8-16); AST/SGOT 96 U/L (7-37); BILIRUBIN,TOTAL 4.8 MG/DL (0.2-1.0); BLOOD UREA NITROGEN 41 MG/DL (7-18); CALCIUM LEVEL 7.8 MG/DL (8.8-10.2); CARBON DIOXIDE LEVEL 27 MEQ/L (21-32); CHLORIDE LEVEL 98 MEQ/L (98-107); CREATININE FOR GFR 1.45 MG/DL (0.70-1.30); GLOMERULAR FILTRATION RATE 52.3 (>49); GLUCOSE, FASTING 188 MG/DL (70-100); PLATELET COUNT, AUTOMATED 93 10^3/uL (150-450); POTASSIUM SERUM 3.5 MEQ/L (3.5-5.1); SODIUM LEVEL 135 MEQ/L (136-145); TOTAL PROTEIN 5.8 GM/DL (6.4-8.2)
[2017-10-15 07:09] LABS: IMMATURE PLATELET FRACTION % 2.4 % (0.0-10.9)
[2017-10-15] MEDS: SYMBICORT 160/4.5MCG INHALER 6GM INH ×2 (07:23→19:30)
[2017-10-15 08:32] LABS: INR 1.96
[2017-10-15] MEDS: FUROSEMIDE 100 MG/10 ML VIAL (J1940) IV ×2 (09:00→17:44)
[2017-10-15] MEDS: ENALAPRIL MALEATE 10 MG TAB PO (09:00)
[2017-10-15] MEDS: CYANOCOBALAMIN 500 MCG TAB PO (09:04)
[2017-10-15] MEDS: POTASSIUM CHLORIDE 10 MEQ SR TABLET PO (09:05)
[2017-10-15] MEDS: VITAMIN D 1,000 INTERNATIONAL UNITS TABLET PO ×2 (09:05→20:50)
[2017-10-15] MEDS: LEVEMIR (INSULIN DETEMIR) 1 UNITS/0.01ML SC (09:07)
[2017-10-15] MEDS: PHYTONADIONE 5 MG TAB PO (12:58)
[2017-10-15 14:42] LABS: TYPE AND SCREEN 1
[2017-10-15] MEDS ORDERED: PERCOCET 5MG/325MG TAB PO ×2 (16:45)
[2017-10-15] MEDS: TIOTROPIUM INHALER/CAPSULE (SPIRIVA) INH (19:30)
[2017-10-15] MEDS: PRAVASTATIN 20 MG TAB PO (20:49)
[2017-10-16] MEDS: IPRATROPIUM 0.5MG/ALBUTEROL 2.5MG INH SOL UD 3ML (DUONEB)(J7620) NEB (04:20)
[2017-10-16] MEDS: MOXIFLOXACIN 400 MG TAB PO (05:37)
[2017-10-16 06:55] LABS: BASO % 0.4 % (0.0-1.0); EOS # 0.3 10^3/uL (0.0-0.50); EOS % 2.3 % (0.0-3.0); HEMOGLOBIN 11.1 g/dl (13.5-17.5); IMMATURE GRANULOCYTE % 0.5 % (0-3.0); LYMPH # 0.8 10^3/uL (1.5-4.5); LYMPH % 7.1 % (24.0-44.0); MEAN CORPUSCULAR HEMOGLOBIN 30.1 pg (27.0-33.0); MEAN CORPUSCULAR HGB CONC 33.6 g/dl (32.0-36.5); MEAN CORPUSCULAR VOLUME 89.4 fl (80.0-96.0); MONO # 1.7 10^3/uL (0.0-0.8); MONO % 15.1 % (0.0-5.0); NEUTROPHILS # 8.2 10^3/uL (1.8-7.7); NEUTROPHILS % 74.6 % (36.0-66.0); RED BLOOD COUNT 3.69 10^6/uL (4.30-6.10); RED CELL DISTRIBUTION WIDTH 19.4 % (11.5-14.5); WHITE BLOOD COUNT 11.1 10^3/uL (4.0-10.0)
[2017-10-16 06:56] LABS: PLATELET COUNT, AUTOMATED 88 10^3/uL (150-450)
[2017-10-16 06:57] LABS: IMMATURE PLATELET FRACTION % 2.6 % (0.0-10.9)
[2017-10-16 07:16] LABS: ALBUMIN/GLOBULIN RATIO 0.49 (1.00-1.93); ALKALINE PHOSPHATASE 435 U/L (45-117); ALT/SGPT 32 U/L (12-78); ANION GAP 8 MEQ/L (8-16); AST/SGOT 96 U/L (7-37); BILIRUBIN,TOTAL 5.7 MG/DL (0.2-1.0); BLOOD UREA NITROGEN 42 MG/DL (7-18); CALCIUM LEVEL 7.8 MG/DL (8.8-10.2); CARBON DIOXIDE LEVEL 28 MEQ/L (21-32); CHLORIDE LEVEL 100 MEQ/L (98-107); CREATININE FOR GFR 1.72 MG/DL (0.70-1.30); GLUCOSE, FASTING 191 MG/DL (70-100); POTASSIUM SERUM 3.5 MEQ/L (3.5-5.1); SODIUM LEVEL 136 MEQ/L (136-145); TOTAL PROTEIN 6.1 GM/DL (6.4-8.2)
[2017-10-16] MEDS: SYMBICORT 160/4.5MCG INHALER 6GM INH ×2 (08:13→20:00)
[2017-10-16] MEDS: FUROSEMIDE 100 MG/10 ML VIAL (J1940) IV (09:12)
[2017-10-16] MEDS: VITAMIN D 1,000 INTERNATIONAL UNITS TABLET PO (09:12)
[2017-10-16] MEDS: CYANOCOBALAMIN 500 MCG TAB PO (09:13)
[2017-10-16] MEDS: POTASSIUM CHLORIDE 10 MEQ SR TABLET PO (09:13)
[2017-10-16] MEDS: LEVEMIR (INSULIN DETEMIR) 1 UNITS/0.01ML SC (09:14)
[2017-10-16] MEDS: MORPHINE 4 MG/ML 1ML VIAL/SYRINGE (J2270) IV ×2 (12:41→20:46)
[2017-10-16] MEDS: PRAVASTATIN 20 MG TAB PO (20:46)
[2017-10-16] MEDS: TIOTROPIUM INHALER/CAPSULE (SPIRIVA) INH (21:00)
[2017-10-17] MEDS: IPRATROPIUM 0.5MG/ALBUTEROL 2.5MG INH SOL UD 3ML (DUONEB)(J7620) NEB (06:11)
[2017-10-17] MEDS: LORazepam 1 MG TAB PO (06:11)
[2017-10-17] MEDS: SYMBICORT 160/4.5MCG INHALER 6GM INH ×2 (07:54→20:00)
[2017-10-17] MEDS: MORPHINE 4 MG/ML 1ML VIAL/SYRINGE (J2270) IV (08:39)
[2017-10-17] MEDS: FUROSEMIDE 80 MG TAB PO (09:15)
[2017-10-17] MEDS: LEVEMIR (INSULIN DETEMIR) 1 UNITS/0.01ML SC (09:15)
[2017-10-17] MEDS ORDERED: LORazepam 1 MG TAB PO (09:45)
[2017-10-17] MEDS: MORPHINE 10MG/0.5ML ORAL CONCENTRATE SOLUTION U/D SL ×5 (12:51→23:28)
[2017-10-17] MEDS: LORazepam 0.5 MG TAB PO ×4 (16:08→22:42)
[2017-10-17] MEDS: TIOTROPIUM INHALER/CAPSULE (SPIRIVA) INH (20:13)
[2017-10-17] MEDS: HYDROmorphone (DILAUDID) 4 MG TAB PO (22:05)
[2017-10-18] MEDS: LORazepam 0.5 MG TAB PO (01:03)
== END 2017-10-18 01:30 | disposition expired | DRG 281 ==
LOC: M MSPAV 10-17 11:02 → M ED 18:13 → M ED INP 21:23
PROC: 30233K1 Transfusion of Nonautologous Frozen Plasma into Peripheral Vein, Percutaneous Approach (ICD-10-PCS; principal; 2017-10-14)
DX: C25.9 Malignant neoplasm of pancreas, unspecified (principal); N17.9 Acute kidney failure, unspecified; C78.7 Secondary malignant neoplasm of liver and intrahepatic bile duct; C78.5 Secondary malignant neoplasm of large intestine and rectum; D69.6 Thrombocytopenia, unspecified; B02.9 Zoster without complications; K70.30 Alcoholic cirrhosis of liver without ascites; I48.91 Unspecified atrial fibrillation; J44.9 Chronic obstructive pulmonary disease, unspecified; K70.40 Alcoholic hepatic failure without coma; R79.1 Abnormal coagulation profile; E11.9 Type 2 diabetes mellitus without complications; E78.5 Hyperlipidemia, unspecified; I10 Essential (primary) hypertension; G47.33 Obstructive sleep apnea (adult) (pediatric); Z79.899 Other long term (current) drug therapy; Z79.01 Long term (current) use of anticoagulants; Z79.4 Long term (current) use of insulin; Z87.891 Personal history of nicotine dependence; Z79.51 Long term (current) use of inhaled steroids; Z66 Do not resuscitate; Z51.5 Encounter for palliative care